=== PATIENT | female | born 1990 | race Two or more races ===

== ENCOUNTER 2017-06-22 16:28 | Emergency (ER) | payer OTHER ==
[2017-06-22 16:38] VITALS: BP 103/57; PULSE 68; TEMP 98; BMI 21.2
--- NOTE | 2017-06-22 19:15 | PDOC ---
History of Present Illness - History of Present Illness Initial Comments: 06/22/17 19:17 The patient is a 26 year old female with a past medical history of migraines, epilepsy, who presents to the emergency department with a complaint of head ache for three days. The pain started off mild and has since progressively worsened. She states that she has had nausea and vomiting over the past two days with decreased appetite. She reports not being able to sleep over the past three days because of the headaches. Patient states she hasn't had a migraine in 5-6 years ago. Patient is currently not on any medications for her migraines . She has been compliant with her Kepra prescriptions. She states her head ache triggers include stress, dehydration and her period. She reports a fever last night and diaphoresis. She reports a sore throat. She reports sensitivity to noise and sounds. Denies any sick contacts. Patients neurologist are in [place] and plans on switching her care into [place]. Denies being . Denies alcohol or drug use Patient reports allergies to [place]. <Daryl Gutierrez - Last Filed: 06/22/17 19:33> - General History Source: Patient, Parent(s) Exam Limitations: No Limitations - History of Present Illness Initial Comments: 06/22/17 22:18 <Yumiko Gordon - Last Filed: 06/22/17 22:19> - General Chief Complaint: Headache Stated Complaint: HEADACHE Time Seen by Provider: 06/22/17 19:14 Past History <Daryl Gutierrez - Last Filed: 06/22/17 19:33> - Past Medical History Asthma: No Cancer: No Cardiac Disorders: No Diabetes: No HTN: No Seizures: Yes Thyroid Disease: No - Psycho/Social/Smoking Cessation Hx Anxiety: No Suicidal Ideation: No Smoking Status: Yes Smoking History: Current every day smoker Have you smoked in the past 12 months: No Number of Cigarettes Smoked Daily: 3 Information on smoking cessation initiated: No Hx Alcohol Use: No Drug/Substance Use Hx: Yes (marijuana) Hx Substance Use Treatment: No <Yumiko Gordon - Last Filed: 06/22/17 22:19> - Past Medical History Allergies/Adverse Reactions: Allergies Allergy/AdvReac Type Severity Reaction Status Date / Time No Known Allergies Allergy Verified 06/22/17 16:38 Home Medications: Ambulatory Orders Levetiracetam [Keppra -] 500 mg PO BID 06/22/17 Review of Systems - Review of Systems Able to Perform ROS?: Yes Constitutional: Yes: Symptoms Reported, See HPI, Diaphoresis, Fever, Loss of Appetite HEENTM: Yes: Throat Pain Respiratory: No: Symptoms reported Cardiac (ROS): No: Symptoms Reported ABD/GI: Yes: Nausea, Vomiting : No: Symptoms Reported Musculoskeletal: No: Symptoms Reported Integumentary: No: Symptoms Reported Neurological: Yes: Headache, Other (sensitivity to light) All Other Systems: Reviewed and Negative <Daryl Gutierrez - Last Filed: 06/22/17 19:33> *Physical Exam - Vital Signs Last Vital Signs Temp Pulse Resp BP Pulse Ox 98 F 68 18 103/57 100 06/22/17 16:36 06/22/17 16:36 06/22/17 16:36 06/22/17 16:36 06/22/17 16:36 - Physical Exam General Appearance: Yes: Nourished, Appropriately Dressed, Mild Distress, Other (soft spoken , mildly photophobic, ill appearing ) HEENT: positive: Normal ENT Inspection, Normal Voice Neck: positive: Supple. negative: Tender, Lymphadenopathy (R), Lymphadenopathy (L) Respiratory/Chest: positive: Lungs Clear Cardiovascular: positive: Regular Rhythm, Regular Rate Gastrointestinal/Abdominal: positive: Soft. negative: Tender Musculoskeletal: positive: Normal Inspection Extremity: positive: Normal Inspection Integumentary: positive: Normal Color, Dry, Warm Neurologic: positive: Fully Oriented, Alert, Other (able to recount events ) <Daryl Gutierrez - Last Filed: 06/22/17 19:33> - Vital Signs Last Vital Signs Temp Pulse Resp BP Pulse Ox 98 F 68 18 103/57 100 06/22/17 16:36 06/22/17 16:36 06/22/17 16:36 06/22/17 16:36 06/22/17 16:36 <Yumiko Gordon - Last Filed: 06/22/17 22:19> Medical Decision Making - Medical Decision Making 06/22/17 19:55 will treat with IV hydration normal saline, IV Tylenol as patient has Toradol and tramadol ALLERGIES, and Reglan and will reevaluate The scribe's documentation has been prepared under my direction and personally reviewed by me in its entirety. I confirm that the note above accurately reflects all work, treatment, procedures, and medical decision making performed by me. 06/22/17 19:56 06/22/17 21:30 Patient much improved after second liter of IV fluid, medications and rest. States is ready for discharge. Has neurologist but will follow up with her PMD. And understands need to return for any changes in symptoms or worsened 06/22/17 22:19 <Yumiko Gordon - Last Filed: 06/22/17 22:19> *DC/Admit/Observation/Transfer - Attestations Scribe Attestion: 06/22/17 19:31 Documentation prepared by Daryl Gutierrez, acting as medical case worker for Yumiko Gordon MD <Daryl Gutierrez - Last Filed: 06/22/17 19:33> - Discharge Dispostion Admit: No <Yumiko Gordon - Last Filed: 06/22/17 22:19> Diagnosis at time of Disposition: Head ache Qualifiers: Headache type: unspecified Headache chronicity pattern: unspecified pattern Intractability: not intractable Qualified Code(s): R51 - Headache - Discharge Dispostion Disposition: HOME Condition at time of disposition: Stable - Referrals Referrals: Prieto Kline MD [Staff Physician] - - Patient Instructions Printed Discharge Instructions: DI for Migraine Additional Instructions: Rest, avoid heavy lifting or strenuous activity until pain resolves stay well- hydrated, Tylenol for pain relief Up with PMD/neurologist for ongoing treatment and evaluation for headache. - Post Discharge Activity Work/School Note: Back to Work
[2017-06-22] MEDS ORDERED: SODIUM CHLORIDE 0.9% 1000 ML INFUS.BAG IV ONE (19:31)
[2017-06-22] MEDS ORDERED: ACETAMINOPHEN 1000 MG/100 ML VIAL (NON FORMULARY) IVPB ONE (19:33)
[2017-06-22] MEDS ORDERED: METOCLOPRAMIDE HCL INJECTION 10 MG/2 ML VIAL IVPUSH ONE (19:34)
[2017-06-22] MEDS ORDERED: METOCLOPRAMIDE HCL INJECTION 10 MG/2 ML VIAL ONE (19:38)
[2017-06-22] MEDS ORDERED: ACETAMINOPHEN INJECTION 100 ML IVPB ONE (19:38)
[2017-06-22 20:29] LABS: URINE APPEARANCE SLCLOUDY; URINE BILIRUBIN NEGATIVE (NEGATIVE); URINE BLOOD NEGATIVE (NEGATIVE); URINE COLOR YELLOW; URINE GLUCOSE (UA) NEGATIVE (NEGATIVE); URINE KETONE NEGATIVE (NEGATIVE); URINE LEUK ESTERASE NEGATIVE (NEGATIVE); URINE NITRITE NEGATIVE (NEGATIVE); URINE PROTEIN NEGATIVE (NEGATIVE); URINE UROBILINOGEN NEGATIVE mg/dL (0.2-1.0)
== END 2017-06-22 21:57 | disposition home or self-care (01) ==
LOC: JERFT 16:28
PROC: 3E033NZ Introduction of Analgesics, Hypnotics, Sedatives into Peripheral Vein, Percutaneous Approach (ICD-10-PCS; principal; 2017-06-22)
PROC: 3E033GC Introduction of Other Therapeutic Substance into Peripheral Vein, Percutaneous Approach (ICD-10-PCS; 2017-06-22)
DX: R51 Headache (principal); Z86.69 Personal history of other diseases of the nervous system and sense organs
CPT/HCPCS: 81003; 84703; 96374; 96375; 99281-25

== ENCOUNTER 2017-11-10 09:26 | Emergency (ER) | payer OTHER ==
[2017-11-10] MEDS ORDERED: morphine CARPU-JECT 4 MG/1 ML DISP.SYRIN IVPUSH ONE (09:50)
[2017-11-10] MEDS ORDERED: SODIUM CHLORIDE 1,000 ML IV STA (10:02)
--- NOTE | 2017-11-10 10:02 | PDOC ---
History of Present Illness - General Stated Complaint: ABD PAIN Time Seen by Provider: 11/10/17 09:37 - History of Present Illness Initial Comments: 11/10/17 09:55 27F with pmh of migranes and epilepsy presents with intensely sharp pain in the midline lower abdomen and lower back pain bilaterally since waking up this morning at 7pm. She tried placing a heat pack but it is getting worse. No vaginal bleeding. States that she took a test 2 month ago that was positive. Last day of menstruation was July 20 which would make her 16 weeks going by her last day of menses. No OBGYN follow up or ultrasounds done. Past History - Past Medical History Allergies/Adverse Reactions: Allergies Allergy/AdvReac Type Severity Reaction Status Date / Time ibuprofen [From Motrin] Allergy Verified 11/10/17 10:31 ketorolac [From Toradol] Allergy Verified 11/10/17 10:31 tramadol Allergy Verified 11/10/17 10:31 Home Medications: Ambulatory Orders Levetiracetam [Keppra -] 500 mg PO BID 06/22/17 Asthma: No Cancer: No Cardiac Disorders: No Diabetes: No HTN: No Seizures: Yes Thyroid Disease: No - Suicide/Smoking/Psychosocial Hx Smoking Status: Yes Smoking History: Current every day smoker Have you smoked in the past 12 months: No Number of Cigarettes Smoked Daily: 3 Hx Alcohol Use: No Drug/Substance Use Hx: Yes (marijuana) Hx Substance Use Treatment: No Review of Systems - Review of Systems Able to Perform ROS?: Yes Is the patient limited [place] proficient: No Constitutional: No: Symptoms Reported HEENTM: No: Symptoms Reported Respiratory: No: Symptoms reported Cardiac (ROS): No: Symptoms Reported ABD/GI: Yes: See HPI : No: Symptoms Reported Musculoskeletal: No: Symptoms Reported Integumentary: No: Symptoms Reported Neurological: No: Symptoms reported All Other Systems: Reviewed and Negative *Physical Exam - Physical Exam General Appearance: Yes: Nourished, Appropriately Dressed, Severe Distress, Thin HEENT: positive: EOMI, SATHYA, Normal ENT Inspection Respiratory/Chest: positive: Lungs Clear, Normal Breath Sounds. negative: Chest Tender, Respiratory Distress Cardiovascular: positive: Regular Rhythm, S1, S2, Tachycardia Female Pelvic Exam: positive: normal external exam. negative: vaginal bleeding Gastrointestinal/Abdominal: positive: Normal Bowel Sounds, Tender (exquisitely tender in all quadrant), Soft, Rebound. negative: Distended Extremity: positive: Normal Capillary Refill Integumentary: positive: Dry, Warm, Pale. negative: Diaphoresis Neurologic: positive: Fully Oriented, Alert, Normal Mood/Affect ED Treatment Course - LABORATORY CBC & Chemistry Diagram: 11/10/17 10:23 11/10/17 10:23 - RADIOLOGY Radiology Studies Ordered: Category Date Time Status TRANSVAGINAL US PREG [US] Stat Ultrasound 11/10/17 09:43 Ordered Medical Decision Making - Medical Decision Making 11/10/17 11:11 27 [id number] acute lower abdominal pain Patient hypotensive in the 80's, 2x NS bolus and pain control Emergency bedside Ultrasound performed. Empty uterus, no free fluid seen at first impression. Will do CT 11/10/17 14:06 11/10/17 14:05 CT abdomen with contrast: Left ovarian cyst and free pelvic fluid Pain control and D/C 11/10/17 14:25 Given zofran and percocet. *DC/Admit/Observation/Transfer Diagnosis at time of Disposition: Hemorrhagic cyst of left ovary - Discharge Dispostion Disposition: HOME Admit: No - Referrals Referrals: Marva Estes MD [Primary Care Provider] - Darinel Hahn MD [Staff Physician] - - Patient Instructions Printed Discharge Instructions: Ovarian Cyst Additional Instructions: Follow up with your OBGYN within 3-4 days Come back to the Ed for any new, worsening or concerning symptom. - Post Discharge Activity
[2017-11-10] MEDS ORDERED: ONDANSETRON 4 MG/2 ML VIAL IVPUSH ONE (10:27)
[2017-11-10 10:30] VITALS: BMI 23.9
[2017-11-10] MEDS ORDERED: ONDANSETRON 4 MG/2 ML VIAL ONE ×2 (10:30→14:18)
[2017-11-10 10:45] LABS: BASO % 0.4 % (0-2.0); EOS % 0.4 % (0-4.5); HEMATOCRIT 44.1 % (32.4-45.2); HEMOGLOBIN 14.5 GM/dL (10.7-15.3); LYMPH % 37.8 % (8-40); MCH 28.8 pg (25.7-33.7); MCHC 32.9 g/dl (32.0-36.0); MEAN CELL VOLUME 87.4 fl (80-96); MONO % 9.4 % (3.8-10.2); PLATELET COUNT 278 K/MM3 (134-434); RBC 5.05 M/mm3 (3.60-5.2); RDW 13.9 % (11.6-15.6); WHITE BLOOD COUNT 7.5 K/mm3 (4.0-10.0)
[2017-11-10 10:54] LABS: ALBUMIN 4.2 g/dl (3.4-5.0); ANION GAP 9 (8-16); BLOOD UREA NITROGEN 13 mg/dL (7-18); CALCIUM 8.9 mg/dL (8.5-10.1); CHLORIDE 105 mmol/L (98-107); CO2 23 mmol/L (21-32); CREATININE 0.9 mg/dL (0.55-1.02); GLUCOSE,RANDOM 85 mg/dL (74-106); POTASSIUM 3.8 mmol/L (3.5-5.1); SGOT/AST 17 U/L (15-37); SGPT/ALT 13 U/L (12-78); SODIUM 137 mmol/L (136-145); TOT PROT 8.3 g/dl (6.4-8.2)
[2017-11-10 10:56] LABS: ALK PHOS 56 U/L (45-117)
--- NOTE | 2017-11-10 11:02 | PDOC ---
Attending Attestation - Resident Resident Name: Karlos Logan - ED Attending Attestation I have performed the following: I have examined & evaluated the patient, The case was reviewed & discussed with the resident, I agree w/resident's findings & plan, Exceptions are as noted - HPI HPI: 11/10/17 10:57 27-year-old female with history of polycystic ovaries and irregular menses presents with acute onset of pelvic pain radiating to her back that awoke her from sleep at 7 AM. Associated with nausea, intolerable 10 out of 10 pain. No bleeding or discharge. Patient states she had a positive home test at the end of August. - Physicial Exam PE: 11/10/17 10:57 Initially hypotensive to 80 systolic and tachycardic to 125, O2 sat normal. In significant distress secondary to pain, abdomen diffusely tender particularly in the lower suprapubic region Bedside ultrasound did not reveal usable images Stat official ultrasound showed no IUP or obvious ectopic or free fluid in the abdomen, bilateral cystic ovaries with otherwise normal perfusion on our preliminary review with the research technologist - Critical Care Time Total Critical Care Time: 110 Critical Care Statement: The care of this patient involved high complexity decision making to prevent further life threatening deterioration of the patient 's condition and/or to evaluate & treat vital organ system(s) failure or risk of failure. - Medical Decision Making 11/10/17 10:58 Patient seen and evaluated with the resident. I agree with the overall evaluation, assessment, and management with the following summary of visit: 27-year-old female presents with acute onset of pelvic pain this morning, peritoneal findings on examination and hemodynamically unstable. Unclear status, if question first trimester versus second trimester pathology, if not question GI/obstruction versus torsion versus cyst rupture versus urinary etiology. Patient seen immediately upon arrival, moved to resuscitation room 10, IV access obtained 2 and IV fluid resuscitation initiated Pain control with fentanyl Bedside imaging as noted CT imaging pending [facility] consulted Continue workup and reassess 11/10/17 14:58 pain controlled with meds. workup revealed L hemorrhagic ovarian cyst, no torsion. otherwise no acute pathology on labs/ua/sono/ctap. HD improved, BP 100, pain resolved, family at bedside, agrees with d/c plan and understands return criteria. Heart Score/ECG Review #1 ECG reviewed & interpreted by me at: 11:40 General ECG Interpretation: Sinus Rhythm, Normal Rate (69), Normal Intervals ( qtc 450), No acute ischemic changes
[2017-11-10 11:51] LABS: INR 0.97 (0.82-1.09)
[2017-11-10 11:54] LABS: ACTIVATED PTT 33.5 SECONDS (26.9-34.4)
[2017-11-10] MEDS ORDERED: SODIUM CHLORIDE 1,000 ML IV ONE (12:01)
[2017-11-10 13:01] VITALS: BP 100/62; PULSE 82; TEMP 98
[2017-11-10 13:10] LABS: URINE APPEARANCE CLEAR; URINE BILIRUBIN NEGATIVE (NEGATIVE); URINE BLOOD NEGATIVE (NEGATIVE); URINE COLOR STRAW; URINE GLUCOSE (UA) NEGATIVE (NEGATIVE); URINE KETONE 1+ (NEGATIVE); URINE LEUK ESTERASE NEGATIVE (NEGATIVE); URINE NITRITE NEGATIVE (NEGATIVE); URINE PROTEIN NEGATIVE (NEGATIVE); URINE UROBILINOGEN NEGATIVE mg/dL (0.2-1.0)
[2017-11-10] MEDS ORDERED: ONDANSETRON 4 MG/2 ML VIAL IVPB ONE (14:11)
--- NOTE | 2017-11-10 17:02 | EKG ---
Test Reason : Blood Pressure : / mmHG Vent. Rate : 069 BPM Atrial Rate : 069 BPM P-R Int : 142 ms QRS Dur : 068 ms QT Int : 420 ms P-R-T Axes : 060 075 071 degrees QTc Int : 450 ms NORMAL SINUS RHYTHM POSSIBLE LEFT ATRIAL ENLARGEMENT SEPTAL INFARCT , AGE UNDETERMINED ABNORMAL ECG WHEN COMPARED WITH ECG OF 14-JUL-2013 19:54, NO SIGNIFICANT CHANGE WAS FOUND Confirmed by MD Christian, Nico ([id number]) on 11/10/2017 5:02:22 PM Referred By: Confirmed By:Nico Gonzales MD
== END 2017-11-10 15:14 | disposition home or self-care (01) ==
LOC: JER 09:26
PROC: 3E0337Z Introduction of Electrolytic and Water Balance Substance into Peripheral Vein, Percutaneous Approach (ICD-10-PCS; principal; 2017-11-10)
PROC: 3E033NZ Introduction of Analgesics, Hypnotics, Sedatives into Peripheral Vein, Percutaneous Approach (ICD-10-PCS; 2017-11-10)
PROC: 3E033GC Introduction of Other Therapeutic Substance into Peripheral Vein, Percutaneous Approach (ICD-10-PCS; 2017-11-10)
DX: N83.202 Unspecified ovarian cyst, left side (principal); G40.909 Epilepsy, unspecified, not intractable, without status epilepticus; G43.909 Migraine, unspecified, not intractable, without status migrainosus; F17.210 Nicotine dependence, cigarettes, uncomplicated
CPT/HCPCS: 36415; 74177-TC; 76817-TC; 80053; 81003; 83605; 84702; 85025; 85610; 85730; 86850; 86900; 86901; 93005; 93010; 96361; 96374; 96375; 96376; 99284-25

== ENCOUNTER 2018-03-01 22:31 | Emergency (ER) | payer OTHER ==
--- NOTE | 2018-03-01 22:34 | PDOC ---
History of Present Illness - General History Source: Patient, EMS Exam Limitations: No Limitations - History of Present Illness Initial Comments: 03/02/18 00:24 The patient is a 27 year old female with past medical history of seizures (4-5 years) present to the emergency department via EMS after a short lived episode of tonic-clonic seizure attack. The seizure was witnessed by sister who states it lasted for 2-3 minutes. Denies biting her tongue or urinary incontinence. The patient reports recent discharge from a detox facility for opioid abuse ( pills). As per the EMS, the patient was taken off keppra about 2 weeks ago. The patient states she has a headache and denies taking any medication. Denies any chest pain, SOB, fever, chills, nausea or vomiting. Social history: smokes marijuana. Past history of opioid abuse. Allergies: ibuprofen, ketorolac, and tramadol. <Elisabet Moreira - Last Filed: 03/02/18 00:26> <Alee Mahan - Last Filed: 03/02/18 00:41> - General Stated Complaint: SEIZURE Time Seen by Provider: 03/01/18 22:33 Past History <Elisabet Moreira - Last Filed: 03/02/18 00:26> - Past Medical History Asthma: No Cancer: No Cardiac Disorders: No COPD: No Diabetes: No HTN: No Seizures: Yes Thyroid Disease: No - Reproductive History (#): 3 Para: 1 Cervical CA: No Dysfunctional Uterine Bleeding: No Ectopic : No Endometrial CA: No Polycystic Ovaries: No Therapeutic (s) & number: Yes (1) Tubal Ligation: No Spontaneous : 0 - Suicide/Smoking/Psychosocial Hx Smoking Status: Yes Smoking History: Current every day smoker Have you smoked in the past 12 months: No Number of Cigarettes Smoked Daily: 3 Hx Alcohol Use: No Drug/Substance Use Hx: Yes (marijuana) Substance Use Type: Marijuana Hx Substance Use Treatment: No <Alee Mahan - Last Filed: 03/02/18 00:41> - Past Medical History Allergies/Adverse Reactions: Allergies Allergy/AdvReac Type Severity Reaction Status Date / Time ibuprofen [From Motrin] Allergy Verified 03/01/18 23:08 ketorolac [From Toradol] Allergy Verified 03/01/18 23:08 tramadol Allergy Verified 03/01/18 23:08 Home Medications: Ambulatory Orders levETIRAcetam [Keppra -] 1,000 mg PO BID 06/22/17 levETIRAcetam [Keppra -] 1,000 mg PO BID #60 tablet 03/02/18 Review of Systems - Review of Systems Able to Perform ROS?: Yes Comments:: 03/02/18 00:24 CONSTITUTIONAL: Absent: fever, no chills, no fatigue EYES: Absent: visual changes ENT: Absent: ear pain, no sore throat CARDIOVASCULAR: Absent: chest pain, no palpitations RESPIRATORY: Absent: cough, no SOB GI: Absent: abdominal pain, no nausea, no vomiting, no constipation, no diarrhea GENITOURINARY: Absent: dysuria, no frequency, no hematuria MUSKULOSKELETAL: Absent: back pain, no arthralgia, no myalgia SKIN: Absent: rash NEURO: (+) an episode of tonic-clonic seizure. (+) headache. <Elisabet Moreira - Last Filed: 03/02/18 00:26> *Physical Exam - Vital Signs Last Vital Signs Temp Pulse Resp BP Pulse Ox 98.4 F 75 16 123/86 100 03/01/18 23:01 03/01/18 23:01 03/01/18 23:01 03/01/18 23:01 03/01/18 23:01 - Physical Exam Comments: 03/02/18 00:23 GENERAL: Alert, oriented X3, Well-appearing, well-nourished. No apparent distress. HEENT: no tongue biting. Normocephalic, atraumatic. PERRL, EOM intact. CARDIOVASCULAR: Normal S1, S2. Regular rate and rhythm no murmurs. . PULMONARY: Clear Clear to auscultation bilaterally. ABDOMEN: (+) benign abd cramps Soft, non-distended, non-tender. EXTREMITIES: Normal ROM in all four extremities. No gross deformities. : No urinary incontinence. SKIN: Warm, dry. No rash NEUROLOGICAL: No gross focal deficit. No focal neurological deficits. <Elisabet Moreira - Last Filed: 03/02/18 00:26> ED Treatment Course - LABORATORY CBC & Chemistry Diagram: 03/01/18 23:22 03/01/18 23:22 - ADDITIONAL ORDERS Additional order review: Laboratory Results 03/01/18 03/01/18 23:22 23:22 Sodium 141 Potassium 3.8 Chloride 106 Carbon Dioxide 24 Anion Gap 11 BUN 11 Creatinine 0.7 Creat Clearance w eGFR > 60 Random Glucose 102 Calcium 8.7 Total Bilirubin 0.2 D AST 20 ALT 24 Alkaline Phosphatase 57 Total Protein 7.2 Albumin 3.8 Serum , Qual Negative 03/01/18 23:22 RBC 4.16 MCV 87.5 MCHC 34.7 RDW 14.4 MPV 8.1 Neutrophils % 59.7 Lymphocytes % 29.9 D Monocytes % 9.0 Eosinophils % 1.0 D Basophils % 0.4 - Medications Given in the ED: ED Medications Discontinued Medications Generic Name Dose Route Start Last Admin Trade Name Freq PRN Reason Stop Dose Admin Levetiracetam 1,000 mg 03/01/18 22:36 03/01/18 23:11 Keppra Injection - IVPB 03/01/18 22:37 1,000 mg ONCE ONE Administration <Elisabet Moreira - Last Filed: 03/02/18 00:26> - LABORATORY CBC & Chemistry Diagram: 03/01/18 23:22 03/01/18 23:22 <Alee Mahan - Last Filed: 03/02/18 00:41> Medical Decision Making - Medical Decision Making 03/02/18 00:28 27-year-old female with a history of seizures, had a witnessed tonic-clonic seizure today. She takes Recently Had a Change in Her keppra Dosage. There Is No Head Trauma. She had no tongue trauma and no urinary incontinence Patient Was Alert upon Arrival, Moving All Extremities. Patient Was Loaded with Keppra. Keppra Level Was Sent. Patient Will Follow-Up with Neurology 03/02/18 00:41 <Alee Mahan - Last Filed: 03/02/18 00:41> *DC/Admit/Observation/Transfer <Elisabet Moreira - Last Filed: 03/02/18 00:26> <Alee Mahan - Last Filed: 03/02/18 00:41> Diagnosis at time of Disposition: Seizure - Discharge Dispostion Disposition: HOME Condition at time of disposition: Stable - Prescriptions Prescriptions: levETIRAcetam [Keppra -] 1,000 mg PO BID #60 tablet - Patient Instructions Printed Discharge Instructions: DI for Seizure Disorder -- Adult Additional Instructions: please followup with neurology please berry picker your prescription at your pharmacy
[2018-03-01] MEDS ORDERED: levETIRAcetam 500 MG/5 ML INJECTION VIAL IVPB ONE ×2 (22:36→22:56)
[2018-03-01 23:06] VITALS: BP 123/86; PULSE 75; TEMP 98.4; BMI 23.0
[2018-03-01 23:33] LABS: BASO % 0.4 % (0-2.0); HEMATOCRIT 36.4 % (32.4-45.2); HEMOGLOBIN 12.6 GM/dL (10.7-15.3); LYMPH % 29.9 % (8-40); MCH 30.4 pg (25.7-33.7); MCHC 34.7 g/dl (32.0-36.0); MEAN CELL VOLUME 87.5 fl (80-96); MEAN PLT VOLUME 8.1 fl (7.5-11.1); NEUT % 59.7 % (42.8-82.8); PLATELET COUNT 263 K/MM3 (134-434); RBC 4.16 M/mm3 (3.60-5.2); RDW 14.4 % (11.6-15.6); WHITE BLOOD COUNT 7.8 K/mm3 (4.0-10.0)
[2018-03-01 23:55] LABS: ALBUMIN 3.8 g/dl (3.4-5.0); ALK PHOS 57 U/L (45-117); ANION GAP 11 (8-16); BILIRUBIN,TOTAL 0.2 mg/dL (0.2-1.0); BLOOD UREA NITROGEN 11 mg/dL (7-18); CALCIUM 8.7 mg/dL (8.5-10.1); CHLORIDE 106 mmol/L (98-107); CO2 24 mmol/L (21-32); CREATININE 0.7 mg/dL (0.55-1.02); GLUCOSE,RANDOM 102 mg/dL (74-106); POTASSIUM 3.8 mmol/L (3.5-5.1); SGOT/AST 20 U/L (15-37); SGPT/ALT 24 U/L (12-78); SODIUM 141 mmol/L (136-145); TOT PROT 7.2 g/dl (6.4-8.2)
--- NOTE | 2018-03-02 10:01 | EKG ---
Test Reason : Blood Pressure : / mmHG Vent. Rate : 079 BPM Atrial Rate : 079 BPM P-R Int : 162 ms QRS Dur : 076 ms QT Int : 370 ms P-R-T Axes : 043 045 029 degrees QTc Int : 424 ms POOR DATA QUALITY, INTERPRETATION MAY BE ADVERSELY AFFECTED NORMAL SINUS RHYTHM NORMAL ECG WHEN COMPARED WITH ECG OF 10-NOV-2017 11:40, NO SIGNIFICANT CHANGE WAS FOUND Confirmed by MD Elif, Bhavin ([id number]) on 03/02/2018 10:00:37 AM Referred By: Confirmed By:Bhavin Asencio MD
== END 2018-03-02 01:02 | disposition home or self-care (01) ==
LOC: JER 22:31
PROC: 3E033GC Introduction of Other Therapeutic Substance into Peripheral Vein, Percutaneous Approach (ICD-10-PCS; principal; 2018-03-01)
DX: G40.89 Other seizures (principal); Z86.69 Personal history of other diseases of the nervous system and sense organs
CPT/HCPCS: 36415; 80053; 84703; 85025; 93005; 93010; 96374; 99282-25

== ENCOUNTER 2018-04-10 10:30 | Inpatient (IN) | payer OTHER ==
[2018-04-10] MEDS ORDERED: SODIUM CHLORIDE 1,000 ML IV STA (11:13)
[2018-04-10] MEDS ORDERED: ACETAMINOPHEN 1000 MG/100 ML VIAL (NON FORMULARY) IVPB ONE (11:13)
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
[2018-04-10] MEDS ORDERED: ACETAMINOPHEN INJECTION 100 ML IVPB ONE (11:35)
[2018-04-10] MEDS ORDERED: LORazepam 2 MG/ML SDV VIAL ONE ×2 (11:36→13:05)
[2018-04-10 11:52] LABS: BASO % 0.5 % (0-2.0); EOS % 0.4 % (0-4.5); HEMATOCRIT 38.3 % (32.4-45.2); LYMPH % 28.9 % (8-40); MCH 29.9 pg (25.7-33.7); MCHC 33.9 g/dl (32.0-36.0); MEAN CELL VOLUME 88.2 fl (80-96); MEAN PLT VOLUME 8.9 fl (7.5-11.1); MONO % 9.9 % (3.8-10.2); NEUT % 60.3 % (42.8-82.8); PLATELET COUNT 234 K/MM3 (134-434); RBC 4.35 M/mm3 (3.60-5.2); RDW 14.1 % (11.6-15.6); WHITE BLOOD COUNT 6.3 K/mm3 (4.0-10.0)
[2018-04-10 12:17] LABS: ALBUMIN 3.7 g/dl (3.4-5.0); ALK PHOS 54 U/L (45-117); ANION GAP 7 (8-16); BILIRUBIN,TOTAL 0.5 mg/dL (0.2-1.0); BLOOD UREA NITROGEN 12 mg/dL (7-18); CALCIUM 8.9 mg/dL (8.5-10.1); CHLORIDE 107 mmol/L (98-107); CO2 25 mmol/L (21-32); CREATININE 0.8 mg/dL (0.55-1.02); GLUCOSE,RANDOM 87 mg/dL (74-106); POTASSIUM 3.8 mmol/L (3.5-5.1); SGOT/AST 14 U/L (15-37); SGPT/ALT 13 U/L (12-78); SODIUM 139 mmol/L (136-145); TOT PROT 7.2 g/dl (6.4-8.2)
[2018-04-10 12:26] VITALS: TEMP 98.2; BMI 18.4
[2018-04-10] MEDS ORDERED: levETIRAcetam 500 MG/5 ML INJECTION VIAL IVPB ONE ×3 (13:10→13:43)
[2018-04-10] MEDS ORDERED: morphine CARPU-JECT 4 MG/1 ML DISP.SYRIN IVPUSH ONE (13:29)
[2018-04-10] MEDS ORDERED: morphine SULFATE 4 MG/ML VIAL ONE (13:43)
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
[2018-04-10 15:59] LABS: PHOSPHOROUS 3.3 mg/dL (2.5-4.9)
[2018-04-10] MEDS ORDERED: ACETAMINOPHEN 500 MG TABLET (FP) PO PRN ×2 (17:33→17:42)
[2018-04-10] MEDS ORDERED: traMADol HCL 50 MG TABLET PO PRN (17:34)
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
[2018-04-10 18:13] VITALS: BP 100/64; PULSE 64
[2018-04-10] MEDS ORDERED: levETIRAcetam 500 MG TABLET (FP) PO SCH ×2 (22:00)
[2018-04-11] MEDS ORDERED: levETIRAcetam 500 MG TABLET (FP) PO SCH (07:00)
--- NOTE | 2018-04-11 08:56 | EKG ---
Test Reason : Blood Pressure : / mmHG Vent. Rate : 064 BPM Atrial Rate : 064 BPM P-R Int : 162 ms QRS Dur : 078 ms QT Int : 394 ms P-R-T Axes : 055 065 048 degrees QTc Int : 406 ms NORMAL SINUS RHYTHM WITH SINUS ARRHYTHMIA SEPTAL INFARCT , AGE UNDETERMINED ABNORMAL ECG WHEN COMPARED WITH ECG OF 01-MAR-2018 23:06, SEPTAL INFARCT IS NOW PRESENT Confirmed by CELINE GATICA, CHRISTIAN ([id number]) on 04/11/2018 8:56:01 AM Referred By: Confirmed By:CHRISTIAN BERGER MD
== END 2018-04-10 19:30 | disposition left against medical advice (07) | DRG 53 ==
LOC: JER 10:30 → JERBED 17:02 → J4W 19:03
PROVIDERS: ADMIT Internal Medicine; ATTEND Internal Medicine
DX: G40.909 Epilepsy, unspecified, not intractable, without status epilepticus (principal); F12.20 Cannabis dependence, uncomplicated
CPT/HCPCS: 36415; 70450-TC; 71045-TC-FY; 71101-TC-RT-FY; 72050-TC-FY; 72070-TC-FY; 80053; 83735; 84100; 84703; 85025; 93005; 93010; 99284-25; J0131; J7030

== ENCOUNTER 2018-05-19 13:51 | Observation (INO) | payer OTHER ==
[2018-05-19 14:03] VITALS: BMI 23.0
[2018-05-19] MEDS ORDERED: MIDAZOLAM HCL 5 MG/1 ML Single Dose Vial IVPUSH ONE (14:09)
[2018-05-19] MEDS ORDERED: levETIRAcetam 500 MG/5 ML INJECTION VIAL IVPB ONE ×2 (14:13→14:14)
--- NOTE | 2018-05-19 14:14 | PDOC ---
History of Present Illness - General Chief Complaint: Seizure Stated Complaint: Seizure Time Seen by Provider: 05/19/18 14:08 - History of Present Illness Initial Comments: 05/19/18 14:14 27 F, with PMHx of epilepsy (4-5 years, on Keppra BID 1000 mg ), who presents to the ED with her boyfriend fro 5 episodes of seizures since this morning. Usually feels like her ear are popping before seizures start, called her boyfriend who come over and witnessed the first seizure. One episode of vomiting in the ED. Usually has series of seizures every month or so. According to bf she was laying down, immobile during the seizure. Had en episode of vomiting 2 days ago. Smokes cigarettes. Past History - Past Medical History Allergies/Adverse Reactions: Allergies Allergy/AdvReac Type Severity Reaction Status Date / Time NSAIDS (Non-Steroidal Allergy Severe Swelling Verified 05/19/18 14:05 Anti-Inflamma ibuprofen [From Motrin] Allergy Verified 05/19/18 14:05 ketorolac [From Toradol] Allergy Verified 05/19/18 14:05 tramadol Allergy Verified 05/19/18 14:05 Home Medications: Ambulatory Orders levETIRAcetam [Keppra -] 1,000 mg PO DAILY 05/19/18 Asthma: No Cancer: No Cardiac Disorders: No COPD: No Diabetes: No HTN: No Seizures: Yes Thyroid Disease: No - Reproductive History (#): 3 Para: 1 Cervical CA: No Dysfunctional Uterine Bleeding: No Ectopic : No Endometrial CA: No Polycystic Ovaries: No Therapeutic (s) & number: Yes (1) Tubal Ligation: No Spontaneous : 0 - Immunization History Td Vaccination: Yes TDAP Vaccination: Yes Immunization Up to Date: Yes - Suicide/Smoking/Psychosocial Hx Smoking Status: Yes Smoking History: Current every day smoker Have you smoked in the past 12 months: Yes Number of Cigarettes Smoked Daily: 5 Information on smoking cessation initiated: No 'Breaking Loose' booklet given: 01/21/14 Hx Alcohol Use: No Drug/Substance Use Hx: Yes Substance Use Type: None, Marijuana Hx Substance Use Treatment: No Review of Systems - Review of Systems Able to Perform ROS?: No (postictal) *Physical Exam - Vital Signs Last Vital Signs Temp Pulse Resp BP Pulse Ox 98.8 F 54 L 20 117/90 100 05/19/18 13:55 05/19/18 13:55 05/19/18 13:55 05/19/18 13:55 05/19/18 13:55 - Physical Exam General Appearance: Yes: Nourished, Appropriately Dressed. No: Apparent Distress HEENT: positive: EOMI, SATHYA, Normal ENT Inspection Respiratory/Chest: positive: Lungs Clear, Normal Breath Sounds. negative: Chest Tender, Respiratory Distress Cardiovascular: positive: Regular Rhythm, Bradycardia Gastrointestinal/Abdominal: positive: Normal Bowel Sounds, Flat, Soft. negative : Tender Extremity: positive: Normal Capillary Refill, Normal Inspection, Normal Range of Motion Neurologic: positive: Other (post ictal, sleepy but arousable). negative: Fully Oriented ED Treatment Course - LABORATORY CBC & Chemistry Diagram: 05/19/18 14:26 05/19/18 14:26 Medical Decision Making - Medical Decision Making 05/19/18 16:02 6 total episodes of seizure with vomiting. Given 2mg Ativan x2 Keppra - fluids - Ct head - Neuro Consult 05/19/18 16:14 Will Admit *DC/Admit/Observation/Transfer Diagnosis at time of Disposition: Seizure disorder - Discharge Dispostion Decision to Admit order: Yes - Referrals - Patient Instructions - Post Discharge Activity
[2018-05-19] MEDS ORDERED: LORazepam 2 MG/ML SDV VIAL ONE ×2 (14:15→14:48)
[2018-05-19] MEDS ORDERED: METOCLOPRAMIDE HCL INJECTION 10 MG/2 ML VIAL IVPUSH ONE (14:34)
[2018-05-19] MEDS ORDERED: METOCLOPRAMIDE HCL INJECTION 10 MG/2 ML VIAL ONE (14:36)
[2018-05-19 15:00] LABS: BASO % 0.4 % (0-2.0); EOS % 0.6 % (0-4.5); HEMATOCRIT 39.8 % (32.4-45.2); HEMOGLOBIN 13.3 GM/dL (10.7-15.3); LYMPH % 36.5 % (8-40); MCH 29.6 pg (25.7-33.7); MCHC 33.3 g/dl (32.0-36.0); MEAN CELL VOLUME 88.9 fl (80-96); MEAN PLT VOLUME 8.9 fl (7.5-11.1); MONO % 8.3 % (3.8-10.2); NEUT % 54.2 % (42.8-82.8); PLATELET COUNT 231 K/MM3 (134-434); RBC 4.47 M/mm3 (3.60-5.2); WHITE BLOOD COUNT 6.5 K/mm3 (4.0-10.0)
[2018-05-19 15:12] LABS: URINE APPEARANCE SLCLOUDY; URINE BILIRUBIN NEGATIVE (<2.0 mg/dL); URINE COLOR STRAW; URINE GLUCOSE (UA) NEGATIVE (NEGATIVE); URINE KETONE NEGATIVE (NEGATIVE); URINE NITRITE NEGATIVE (NEGATIVE); URINE PROTEIN NEGATIVE (NEGATIVE); URINE UROBILINOGEN NEGATIVE mg/dL (0.2-1.0)
[2018-05-19 15:19] LABS: URINE LEUK ESTERASE 2+ (NEGATIVE)
[2018-05-19 15:21] LABS: COCAINE, UR NEGATIVE ng/ml (CUTOFF=300); METHADONE, UR NEGATIVE ng/ml (CUTOFF=300); OPIATES, URI NEGATIVE ng/ml (CUTOFF=300); PHENCYCLIDINE,URINE NEGATIVE ng/ml (CUTOFF=25); URINE AMPHETAMINES NEGATIVE ng/ml (CUTOFF=500); URINE BARBITURATES NEGATIVE ng/ml (CUTOFF=200); URINE BENZODIAZEPINES NEGATIVE ng/ml (CUTOFF=200)
[2018-05-19 15:23] LABS: ALBUMIN 3.6 g/dl (3.4-5.0); ANION GAP 6 (8-16); BILIRUBIN,TOTAL 0.3 mg/dL (0.2-1.0); BLOOD UREA NITROGEN 9 mg/dL (7-18); CALCIUM 8.9 mg/dL (8.5-10.1); CHLORIDE 110 mmol/L (98-107); CO2 25 mmol/L (21-32); CREATININE 0.8 mg/dL (0.55-1.02); GLUCOSE,RANDOM 87 mg/dL (74-106); LIPASE 98 U/L (73-393); POTASSIUM 3.7 mmol/L (3.5-5.1); SGOT/AST 16 U/L (15-37); SGPT/ALT 13 U/L (12-78); SODIUM 141 mmol/L (136-145); TOT PROT 7.1 g/dl (6.4-8.2)
[2018-05-19 15:25] LABS: ALK PHOS 52 U/L (45-117)
[2018-05-19 15:27] LABS: EPI CELLS MODERATE /HPF (FEW); URINE MUCUS RARE
[2018-05-19 15:28] LABS: HCG,QUALITATIVE URINE NEGATIVE
--- NOTE | 2018-05-19 15:40 | PDOC ---
Attending Attestation - Resident Resident Name: DesmondKarlos - ED Attending Attestation I have performed the following: I have examined & evaluated the patient, The case was reviewed & discussed with the resident, I agree w/resident's findings & plan, Exceptions are as noted - HPI HPI: 05/19/18 15:37 27 F with h/o seizure d/o on keppra presenting to ED with multiple seizures. Per boyfriend, pt has been feeling ill recently with nausea and vomiting. Today , pt had a seizure approx 1 hour prior to arrival, prompting boyfriend to call EMS. Since then, pt has had 4 additional seizures, each lasting a few minutes. Pt had additional seizure in ED, GTC. Pt given ativan 2mg IV and keppra 1000mg IV. At time of evaluation, pt is post-ictal, unable to contribute additional history. - Physicial Exam PE: 05/19/18 15:39 "GENERAL:Somnolent, in no acute distress. HEAD: No signs of trauma EYES: PERRLA, EOMI, sclera anicteric, conjunctiva clear ENT: Auricles normal inspection, hearing grossly normal, nares patent, oropharynx clear without exudates. Moist mucosa NECK: Nontender, no stepoffs, Normal ROM, supple, no lymphadenopathy, JVD, or masses LUNGS: Breath sounds equal, clear to auscultation bilaterally. No wheezes, and no crackles HEART: Regular rate and rhythm, normal S1 and S2, no murmurs, rubs or gallops ABDOMEN: Soft, nontender, normoactive bowel sounds. No guarding, no rebound. No masses EXTREMITIES: Normal range of motion, no edema. No clubbing or cyanosis. No cords, erythema, or tenderness NEUROLOGICAL: Moves all extremities to painful stimulus SKIN: Warm, Dry, normal turgor, no rashes or lesions noted. " - Medical Decision Making 05/19/18 15:39 27 F with seizure d/o presenting in status epi. Pt likely noncompliant with meds in context of vomiting illness. Will evaluate for infectious process as well as metabolic derangement. Also obtain CT head. - Labs, UA, UPT - CXR - CT head - Utox - Ativan PRN - Neuro consult <Chris Owens - Last Filed: 05/19/18 15:36> ED Treatment Course - LABORATORY CBC & Chemistry Diagram: 05/19/18 14:26 05/19/18 14:26 - ADDITIONAL ORDERS Additional order review: Laboratory Results 05/19/18 05/19/18 05/19/18 14:55 14:55 14:26 Sodium 141 Potassium 3.7 Chloride 110 H Carbon Dioxide 25 Anion Gap 6 L BUN 9 Creatinine 0.8 Creat Clearance w eGFR > 60 Random Glucose 87 Calcium 8.9 Total Bilirubin 0.3 AST 16 ALT 13 Alkaline Phosphatase 52 Total Protein 7.1 Albumin 3.6 Lipase 98 Beta HCG, Quant < 1.0 Urine Color Straw Urine Appearance Slcloudy Urine pH 6.0 Ur Specific [place] 1.010 Urine Protein Negative Urine Glucose (UA) Negative Urine Ketones Negative Urine Blood Negative Urine Nitrite Negative Urine Bilirubin Negative Urine Urobilinogen Negative Ur Leukocyte Esterase 2+ H Urine WBC (Auto) None Urine RBC (Auto) None Ur Epithelial Cells Moderate Urine Mucus Rare Urine HCG, Qual Negative Opiates Screen Negative Methadone Screen Negative Barbiturate Screen Negative Phencyclidine Screen Negative Ur Amphetamines Screen Negative MDMA (Ecstasy) Screen Negative Benzodiazepines Screen Negative Cocaine Screen Negative U Marijuana (THC) Screen Positive 05/19/18 14:26 RBC 4.47 MCV 88.9 MCHC 33.3 RDW 14.0 MPV 8.9 Neutrophils % 54.2 Lymphocytes % 36.5 D Monocytes % 8.3 Eosinophils % 0.6 Basophils % 0.4 - RADIOLOGY Radiograph Interpretation: 05/19/18 19:[address] was reviewed by Dr. Owens and over-read by Radiology. IMPRESSION: Normal CT scan of the head with no evidence of acute intracranial pathology. Chest X-Ray was reviewed by Dr. Owens and over-read by Radiology. Chest: Seizure Since the prior study of 04/10/2018 again there are clear lungs, normal mediastinum and sharp angles. The bones and soft tissues are intact. An acute process is not seen. - Medications Given in the ED: ED Medications Discontinued Medications Generic Name Dose Route Start Last Admin Trade Name Freq PRN Reason Stop Dose Admin Sodium Chloride 1,000 mls @ 1,000 mls/hr 05/19/18 15:57 05/19/18 16:00 Normal Saline - IV 05/19/18 16:56 1,000 mls/hr ASDIR STA Administration Levetiracetam 1,000 mg 05/19/18 14:13 05/19/18 14:27 Keppra Injection - IVPB 05/19/18 14:14 1,000 mg ONCE ONE Administration Lorazepam 2 mg 05/19/18 14:12 05/19/18 14:19 Ativan Injection - IVPUSH 05/19/18 14:13 2 mg ONCE ONE Administration Lorazepam 2 mg 05/19/18 14:47 05/19/18 14:53 Ativan Injection - IVPUSH 05/19/18 14:48 2 mg ONCE ONE Administration Metoclopramide HCl 10 mg 05/19/18 14:34 05/19/18 14:44 Reglan Injection - IVPUSH 05/19/18 14:35 10 mg ONCE ONE Administration <Odalis Sultana - Last Filed: 05/19/18 19:08> Attestations - Attestations 05/19/18 19:08 Documentation prepared by Odalis Sultana, acting as medical staff assistant for Chris Owens MD. <Odalis Sultana - Last Filed: 05/19/18 19:08>
[2018-05-19] MEDS ORDERED: SODIUM CHLORIDE 1,000 ML IV STA (15:57)
--- NOTE | 2018-05-19 16:54 | HP ---
Admitting History and Physical - Admission Chief Complaint: seizure History of Present Illness: This is a 27 year old female with pmhx of epilepsy (4-5 years, maintained on Keppra BID 1000 mg). This morning she awoke feeling unwell and has been for a few days. Later, in the morning felt her ears pop. This is warning sign for her she is going to have a seizure, following her ear popping she had an aura and then vomited. EMS was called and per ED record pt had 5 episodes, one in the ED. In ED given ativan 2mg x2 and keppra 1000mg IV x1. Currently, pt states she is under stress, sleeps ~ 3hrs/night d/t insomnia, is hungry and feeling anxious she will have another seizure. 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 ...LMP: 07/21/17 - Smoking History Smoking history: Current every day smoker Have you smoked in the past 12 months: Yes Aproximately how many cigarettes per day: 5 - Alcohol/Substance Use Hx Alcohol Use: No Home Medications - Allergies Allergies/Adverse Reactions: Allergies Allergy/AdvReac Type Severity Reaction Status Date / Time NSAIDS (Non-Steroidal Allergy Severe Swelling Verified 05/19/18 14:05 Anti-Inflamma ibuprofen [From Motrin] Allergy Verified 05/19/18 14:05 ketorolac [From Toradol] Allergy Verified 05/19/18 14:05 tramadol Allergy Verified 05/19/18 14:05 - Home Medications Home Medications: Ambulatory Orders levETIRAcetam [Keppra -] 1,000 mg PO DAILY 05/19/18 Review of Systems - Review of Systems Constitutional: reports: Weakness Eyes: reports: No Symptoms HENT: reports: No Symptoms Neck: reports: No Symptoms Cardiovascular: reports: No Symptoms Respiratory: reports: No Symptoms Gastrointestinal: reports: No Symptoms Genitourinary: reports: No Symptoms Musculoskeletal: reports: Other (muscles aching) Integumentary: reports: No Symptoms Neurological: reports: Seizure Endocrine: reports: No Symptoms Hematology/Lymphatic: reports: No Symptoms Psychiatric: reports: No Symptoms Physical Examination Vital Signs: Vital Signs Temperature 98.8 F 05/19/18 13:55 Pulse Rate 60 05/19/18 15:59 Respiratory Rate 18 05/19/18 15:59 Blood Pressure 88/57 05/19/18 15:59 O2 Sat by Pulse Oximetry (%) 100 05/19/18 15:59 Constitutional: Yes: Anxious Eyes: Yes: Conjunctiva Clear HENT: Yes: Atraumatic Neck: Yes: Supple Cardiovascular: Yes: Regular Rate and Rhythm, S1, S2 Respiratory: Yes: Regular, CTA Bilaterally Gastrointestinal: Yes: Normal Bowel Sounds, Soft Renal/: Yes: WNL Edema: No Peripheral Pulses WNL: Yes Integumentary: Yes: WNL Neurological: Yes: Alert, Oriented, Cran Nerves II-XII Intact Psychiatric: Yes: Alert, Oriented Labs: CBC, BMP 05/19/18 14:26 05/19/18 14:26 Imaging - Results Cat Scan: Pending Problem List - Problems (1) Seizure disorder Code(s): G40.909 - EPILEPSY, UNSP, NOT INTRACTABLE, WITHOUT STATUS EPILEPTICUS Assessment/Plan Assessment: 27 year old female admitted with seizure x5 Plan: 1. Seizure - Keppra 1000mg BID - Ativan 2mg prn - Head CT pending - EKG, CXR pending - UA with +2 le no wbc - Neurology consulted 2. Smoking - 5/day - Declines patch - Counseled on cessation Visit type - Emergency Visit Emergency Visit: Yes Care time: The patient presented to the Emergency Department on the above date and was hospitalized for further evaluation of their emergent condition. - New Patient This patient is new to me today: Yes Date on this admission: 05/19/18 - Critical Care Critical Care patient: No Hospitalist Screening - Colonoscopy Questionnaire Colonoscopy Questionnaire: Colonoscopy Questionnaire - Patient: 50 - 75 years old and never had a screening colonoscopy: Unknown History of colon or rectal polyps, or CA: Unknown History of IBD, Crohn's disease or UC: Unknown History of abdominal radiation therapy as a child: Unknown - Relative: 1 with colon or rectal CA, or polyps at age 60 or younger: Unknown Colon or rectal CA diagnosed at age 45 or younger: Unknown Multiple relatives with colon or rectal CA: Unknown - Outcome: Screening Result: Negative Screen
[2018-05-19] MEDS ORDERED: ACETAMINOPHEN 1000 MG/100 ML VIAL (NON FORMULARY) IVPB PRN (17:13)
[2018-05-19] MEDS ORDERED: ACETAMINOPHEN 1000 MG/100 ML VIAL (NON FORMULARY) IVPB ONE (17:13)
[2018-05-19] MEDS ORDERED: ONDANSETRON 4 MG/2 ML VIAL IVPUSH PRN (17:14)
[2018-05-19] MEDS ORDERED: ACETAMINOPHEN INJECTION 100 ML IVPB ONE (19:17)
[2018-05-19] MEDS: SODIUM CHLORIDE 1,000 ML IV SCH (20:50)
[2018-05-19] MEDS: levETIRAcetam 500 MG/5 ML INJECTION VIAL IVPB SCH (21:03)
[2018-05-19] MEDS: ACETAMINOPHEN 325 MG TABLET (FP) PO PRN (22:43)
[2018-05-19] MEDS: LORazepam 2 MG/ML SDV VIAL IVPUSH PRN (22:44)
[2018-05-20] MEDS: SODIUM CHLORIDE 1,000 ML IV SCH ×2 (06:29→17:33)
[2018-05-20 07:34] LABS: BASO % 0.6 % (0-2.0); EOS % 0.7 % (0-4.5); HEMATOCRIT 35.3 % (32.4-45.2); LYMPH % 44.3 % (8-40); MCH 30.4 pg (25.7-33.7); MEAN CELL VOLUME 89.3 fl (80-96); MEAN PLT VOLUME 8.9 fl (7.5-11.1); MONO % 7.6 % (3.8-10.2); NEUT % 46.8 % (42.8-82.8); PLATELET COUNT 190 K/MM3 (134-434); RBC 3.95 M/mm3 (3.60-5.2); RDW 13.6 % (11.6-15.6); WHITE BLOOD COUNT 5.2 K/mm3 (4.0-10.0)
[2018-05-20] MEDS: ACETAMINOPHEN 325 MG TABLET (FP) PO PRN (07:52)
[2018-05-20 08:07] LABS: ALBUMIN 3.1 g/dl (3.4-5.0); ALK PHOS 43 U/L (45-117); ANION GAP 8 (8-16); BILIRUBIN,TOTAL 0.4 mg/dL (0.2-1.0); BLOOD UREA NITROGEN 6 mg/dL (7-18); CHLORIDE 112 mmol/L (98-107); CO2 24 mmol/L (21-32); CREATININE 0.6 mg/dL (0.55-1.02); GLUCOSE,RANDOM 76 mg/dL (74-106); PHOSPHOROUS 2.8 mg/dL (2.5-4.9); POTASSIUM 3.8 mmol/L (3.5-5.1); SGOT/AST 14 U/L (15-37); SGPT/ALT 10 U/L (12-78); SODIUM 144 mmol/L (136-145); TOT PROT 5.9 g/dl (6.4-8.2)
[2018-05-20] MEDS: LORazepam 2 MG/ML SDV VIAL IVPUSH PRN ×2 (08:15→14:15)
[2018-05-20] MEDS: levETIRAcetam 500 MG/5 ML INJECTION VIAL IVPB SCH (09:24)
[2018-05-20] MEDS ORDERED: DIVALPROEX SODIUM 500 MG TABLET E.C. PO SCH (10:30)
--- NOTE | 2018-05-20 11:28 | CONSULT ---
Consult - text type - Consultation Consultation Note: Neurology History of Present Illness: 27 year old female with reported history of seizures and states she woke up feeling ill and believes this to be an aura for seizures. Reported having multiple seizures at home, EMS was called and reportedly one episode in ER. Given Ativan in ER, keppra loaded. CT head reviewed and without acute changes. During encounter, patient very guarded and inconsistent with history. Says she doesn't sleep, perpetually anxious, my suspicion is nonepileptic seizures. She also had marijuana in her system which says her neurologist advised her to use. 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 - Smoking History Smoking history: Current every day smoker Have you smoked in the past 12 months: Yes Aproximately how many cigarettes per day: 5 - Alcohol/Substance Use Hx Alcohol Use: No Home Medications - Allergies Allergies/Adverse Reactions: Allergies Allergy/AdvReac Type Severity Reaction Status Date / Time NSAIDS (Non-Steroidal Allergy Severe Swelling Verified 05/19/18 14:05 Anti-Inflamma ibuprofen [From Motrin] Allergy Verified 05/19/18 14:05 ketorolac [From Toradol] Allergy Verified 05/19/18 14:05 tramadol Allergy Verified 05/19/18 14:05 - Home Medications Home Medications: Ambulatory Orders levETIRAcetam [Keppra -] 1,000 mg PO DAILY 05/19/18 Review of Systems - Review of Systems Constitutional: reports: Weakness Eyes: reports: No Symptoms HENT: reports: No Symptoms Neck: reports: No Symptoms Cardiovascular: reports: No Symptoms Respiratory: reports: No Symptoms Gastrointestinal: reports: No Symptoms Genitourinary: reports: No Symptoms Musculoskeletal: reports: Other (muscles aching) Integumentary: reports: No Symptoms Neurological: reports: Seizure Endocrine: reports: No Symptoms Hematology/Lymphatic: reports: No Symptoms Psychiatric: reports: No Symptoms Physical Examination Vital Signs Temperature 98.4 F 05/20/18 09:35 Pulse Rate 68 05/20/18 09:35 Respiratory Rate 18 05/20/18 09:35 Blood Pressure 108/76 05/20/18 09:35 O2 Sat by Pulse Oximetry (%) 98 05/20/18 01:14 Constitutional: Yes: Anxious, awake and alert Eyes: Yes: Conjunctiva Clear HENT: Yes: Atraumatic Neck: Yes: Supple Cardiovascular: Yes: Regular Rate and Rhythm, S1, S2 Respiratory: Yes: Regular, CTA Bilaterally Gastrointestinal: Yes: Normal Bowel Sounds, Soft Renal/: Yes: WNL Edema: No Peripheral Pulses WNL: Yes Integumentary: Yes: WNL Neurological: Yes: Alert, Oriented, Cran Nerves II-XII Intact, moves all extremities, sensory intact Psychiatric: Yes: Alert, Oriented CBCD WBC 5.2 K/mm3 (4.0-10.0) 05/20/18 06:40 RBC 3.95 M/mm3 (3.60-5.2) 05/20/18 06:40 Hgb 12.0 GM/dL (10.7-15.3) 05/20/18 06:40 Hct 35.3 % (32.4-45.2) 05/20/18 06:40 MCV 89.3 fl (80-96) 05/20/18 06:40 MCHC 34.0 g/dl (32.0-36.0) 05/20/18 06:40 RDW 13.6 % (11.6-15.6) 05/20/18 06:40 Plt Count 190 K/MM3 (134-434) 05/20/18 06:40 MPV 8.9 fl (7.5-11.1) 05/20/18 06:40 CMP Sodium 144 mmol/L (136-145) 05/20/18 06:40 Potassium 3.8 mmol/L (3.5-5.1) 05/20/18 06:40 Chloride 112 mmol/L (98-107) H 05/20/18 06:40 Carbon Dioxide 24 mmol/L (21-32) 05/20/18 06:40 Anion Gap 8 (8-16) 05/20/18 06:40 BUN 6 mg/dL (7-18) L 05/20/18 06:40 Creatinine 0.6 mg/dL (0.55-1.02) 05/20/18 06:40 Creat Clearance w eGFR > 60 (>60) 05/20/18 06:40 Random Glucose 76 mg/dL (74-106) 05/20/18 06:40 Calcium 8.0 mg/dL (8.5-10.1) L 05/20/18 06:40 Total Bilirubin 0.4 mg/dL (0.2-1.0) 05/20/18 06:40 AST 14 U/L (15-37) L 05/20/18 06:40 ALT 10 U/L (12-78) L 05/20/18 06:40 Alkaline Phosphatase 43 U/L (45-117) L 05/20/18 06:40 Total Protein 5.9 g/dl (6.4-8.2) L 05/20/18 06:40 Albumin 3.1 g/dl (3.4-5.0) L 05/20/18 06:[address] head reviewed Plan 27 year old female with reported history of seizures and states she woke up feeling ill and believes this to be an aura for seizures. Reported having multiple seizures at home, EMS was called and reportedly one episode in ER. Given Ativan in ER, keppra loaded. CT head reviewed and without acute changes. During encounter, patient very guarded and inconsistent with history. Says she doesn't sleep, perpetually anxious, my suspicion is nonepileptic seizures. She also had marijuana in her system which says her neurologist advised her to use. Consider psych eval. Keppra can be increased to 1250 twice daily. Depakote can also be added 500mg twice daily. Should have outpatient follow up with her neurologist who would know her well. Should avoid toxic substance. Maintain hydration. Increased would be of benefit.
--- NOTE | 2018-05-20 11:31 | PN ---
Physical Exam: SUBJECTIVE: Patient seen and examined this AM with neurology. PT states her body hurts after having 7 seizures. Additional, she has not slept in several days OBJECTIVE: Vital Signs Period Temp Pulse Resp BP Sys/Ho Pulse Ox Last 24 Hr 98 F-98.8 F 50-68 18-20 88-118/57-90 98-100 PE Neuro: alert, awake, cn 2-12intact Pulm: regular, no sob CV: s1 s2 rrr Abd: s nt nd + bs Ext: no le edema Laboratory Results - last 24 hr 05/19/18 05/19/18 05/19/18 14:26 14:26 14:55 WBC 6.5 RBC 4.47 Hgb 13.3 Hct 39.8 MCV 88.9 MCH 29.6 MCHC 33.3 RDW 14.0 Plt Count 231 MPV 8.9 Absolute Neuts (auto) 3.5 Neutrophils % 54.2 Lymphocytes % 36.5 D Monocytes % 8.3 Eosinophils % 0.6 Basophils % 0.4 Nucleated RBC % 0 Sodium 141 Potassium 3.7 Chloride 110 H Carbon Dioxide 25 Anion Gap 6 L BUN 9 Creatinine 0.8 Creat Clearance w eGFR > 60 Random Glucose 87 Calcium 8.9 Phosphorus Magnesium Total Bilirubin 0.3 AST 16 ALT 13 Alkaline Phosphatase 52 Total Protein 7.1 Albumin 3.6 Lipase 98 Beta HCG, Quant < 1.0 Urine Color Straw Urine Appearance Slcloudy Urine pH 6.0 Ur Specific [place] 1.010 Urine Protein Negative Urine Glucose (UA) Negative Urine Ketones Negative Urine Blood Negative Urine Nitrite Negative Urine Bilirubin Negative Urine Urobilinogen Negative Ur Leukocyte Esterase 2+ H Urine WBC (Auto) None Urine RBC (Auto) None Ur Epithelial Cells Moderate Urine Mucus Rare Urine HCG, Qual Negative Opiates Screen Methadone Screen Barbiturate Screen Phencyclidine Screen Ur Amphetamines Screen MDMA (Ecstasy) Screen Benzodiazepines Screen Cocaine Screen U Marijuana (THC) Screen 05/19/18 05/20/18 05/20/18 14:55 06:40 06:40 WBC 5.2 RBC 3.95 Hgb 12.0 Hct 35.3 MCV 89.3 MCH 30.4 MCHC 34.0 RDW 13.6 Plt Count 190 MPV 8.9 Absolute Neuts (auto) 2.4 Neutrophils % 46.8 Lymphocytes % 44.3 H D Monocytes % 7.6 Eosinophils % 0.7 Basophils % 0.6 Nucleated RBC % 0 Sodium 144 Potassium 3.8 Chloride 112 H Carbon Dioxide 24 Anion Gap 8 BUN 6 L Creatinine 0.6 Creat Clearance w eGFR > 60 Random Glucose 76 Calcium 8.0 L Phosphorus 2.8 Magnesium 2.0 Total Bilirubin 0.4 AST 14 L ALT 10 L Alkaline Phosphatase 43 L Total Protein 5.9 L Albumin 3.1 L Lipase Beta HCG, Quant Urine Color Urine Appearance Urine pH Ur Specific [place] Urine Protein Urine Glucose (UA) Urine Ketones Urine Blood Urine Nitrite Urine Bilirubin Urine Urobilinogen Ur Leukocyte Esterase Urine WBC (Auto) Urine RBC (Auto) Ur Epithelial Cells Urine Mucus Urine HCG, Qual Opiates Screen Negative Methadone Screen Negative Barbiturate Screen Negative Phencyclidine Screen Negative Ur Amphetamines Screen Negative MDMA (Ecstasy) Screen Negative Benzodiazepines Screen Negative Cocaine Screen Negative U Marijuana (THC) Screen Positive Active Medications Generic Name Dose Route Start Last Admin Trade Name Freq PRN Reason Stop Dose Admin Acetaminophen 1,000 mg 05/19/18 17:13 Ofirmev Injection - IVPB Q6H PRN PAIN LEVEL 1-5 Acetaminophen 650 mg 05/19/18 22:36 05/20/18 07:52 Tylenol - PO 650 mg Q6H PRN Administration Fever Or Pain Divalproex Sodium 500 mg 05/20/18 10:30 Depakote - PO BID GUADALUPE Sodium Chloride 1,000 mls @ 83 mls/hr 05/19/18 17:15 05/20/18 06:29 Normal Saline - IV 83 mls/hr ASDIR GUADALUPE Administration Levetiracetam 1,000 mg 05/19/18 22:00 05/20/18 09:24 Keppra Injection - IVPB 1,000 mg BID GUADALUPE Administration Lorazepam 2 mg 05/19/18 17:13 05/20/18 08:15 Ativan Injection - IVPUSH 2 mg TID PRN Administration ANXIETY Ondansetron HCl 4 mg 05/19/18 17:14 Zofran Injection IVPUSH Q6H PRN NAUSEA Assessment: 27 year old female admitted with seizure x5 Plan: 1. Seizure vs non epileptic seizures - Increase keppra 1250mg BID - Added depakote 500mg BID, however pt states she has been on in past and does not wish to take, she wishes neurologist would discuss this with her - Ativan 2mg prn - Head CT negative - Contacted pt pharmacy [facility], pt has been prescribed trazadone, seroquel, prazosin in 01/2018 however did not pick them up d/t insurance issues - EEG ordered - Continue IVF - Tylenol prn, would caution with narcotics d/t unwarranted change in mental status - Discussed above with Neurology 2. Smoking - 5/day - Declines patch - Counseled on cessation Problem List - Problems (1) Seizure disorder Code(s): G40.909 - EPILEPSY, UNSP, NOT INTRACTABLE, WITHOUT STATUS EPILEPTICUS Visit type - Emergency Visit Emergency Visit: Yes ED Registration Date: 05/19/18 Care time: The patient presented to the Emergency Department on the above date and was hospitalized for further evaluation of their emergent condition. - New Patient This patient is new to me today: No - Critical Care Critical Care patient: No
--- NOTE | 2018-05-20 11:43 | RAPID ---
Physical Examination Vital Signs: Vital Signs Temperature 98.4 F 05/20/18 09:35 Pulse Rate 68 05/20/18 09:35 Respiratory Rate 18 05/20/18 09:35 Blood Pressure 108/76 05/20/18 09:35 O2 Sat by Pulse Oximetry (%) 98 05/20/18 01:14 Labs: CBC, BMP 05/20/18 06:40 05/20/18 06:40 Rapid Response - Rapid Response Assessment: Called for rapid response pt found on hands and knees in bathroom after urinating, with ?seizure like activity. Pt states she is weak and body hurts o2 sat 100% on room air, vss Transferred pt from floor to wheel chair to bed Neurology made aware
--- NOTE | 2018-05-20 11:47 | FALL ---
Fall Exam - Event Witnessed fall: No Location of Fall: Bathroom Fall from: Toilet - Pre-Fall Mental Status: Alert Current Medications: Current Medications Generic Name Dose Route Start Last Admin Trade Name Freq PRN Reason Stop Dose Admin Acetaminophen 1,000 mg 05/19/18 17:13 Ofirmev Injection - IVPB Q6H PRN PAIN LEVEL 1-5 Acetaminophen 650 mg 05/19/18 22:36 05/20/18 07:52 Tylenol - PO 650 mg Q6H PRN Administration Fever Or Pain Divalproex Sodium 500 mg 05/20/18 10:30 Depakote - PO BID GUADALUPE Sodium Chloride 1,000 mls @ 83 mls/hr 05/19/18 17:15 05/20/18 06:29 Normal Saline - IV 83 mls/hr ASDIR GUADALUPE Administration Levetiracetam 1,000 mg 05/19/18 22:00 05/20/18 09:24 Keppra Injection - IVPB 1,000 mg BID GUADALUPE Administration Lorazepam 2 mg 05/19/18 17:13 05/20/18 08:15 Ativan Injection - IVPUSH 2 mg TID PRN Administration ANXIETY Ondansetron HCl 4 mg 05/19/18 17:14 Zofran Injection IVPUSH Q6H PRN NAUSEA - Post-Fall Patient Outcome: No Injury Treatment: None Vital Signs: Vital Signs Temperature 98.4 F 05/20/18 09:35 Pulse Rate 68 05/20/18 09:35 Respiratory Rate 18 05/20/18 09:35 Blood Pressure 108/76 05/20/18 09:35 O2 Sat by Pulse Oximetry (%) 98 05/20/18 01:14 LOC Post-Fall: Unchanged Identify factors for HIGH RISK for Head Injury: None of the above
--- NOTE | 2018-05-20 14:32 | EKG ---
Test Reason : Blood Pressure : / mmHG Vent. Rate : 059 BPM Atrial Rate : 059 BPM P-R Int : 166 ms QRS Dur : 074 ms QT Int : 416 ms P-R-T Axes : 054 065 052 degrees QTc Int : 411 ms SINUS BRADYCARDIA OTHERWISE NORMAL ECG WHEN COMPARED WITH ECG OF 10-APR-2018 18:22, NO SIGNIFICANT CHANGE WAS FOUND Confirmed by WILMER STEWART MD ([id number]) on 05/20/2018 2:31:56 PM Referred By: Confirmed By:WILMER STEWART MD
--- NOTE | 2018-05-20 16:20 | RAPID ---
Physical Examination Vital Signs: Vital Signs Temperature 98 F 05/20/18 14:18 Pulse Rate 54 L 05/20/18 14:18 Respiratory Rate 18 05/20/18 14:18 Blood Pressure 108/69 05/20/18 14:18 O2 Sat by Pulse Oximetry (%) 96 05/20/18 09:00 Labs: CBC, BMP 05/20/18 06:40 05/20/18 06:40 Rapid Response - Rapid Response Assessment: Patient smashed IV pole, ripped out IV and then threw herself to the floor and hit her head. Following evaluation, pt stood up grabbed her things and eloped. On her way down she fell down the stairs in front of 3W door. VSS stable, pt initially non talkative and not moving. Soft collar placed, then pt reported pain to back and decreased sensation to her lower ext. Upon transfer to hard transfer board pt able to use lower ext to lower legs. Had long discussion with finance. Pt has personal history of substance abuse, she was in rehab in 01/2018 for possible cocaine. He knows she takes seroquel but unaware of any other medications. [facility] has record of filled oxycodone prescription in 01/2018, however pt did not fill trazadone, seroquel, or prazosin. She states there were issues with her insurance. Laure[place]alty states she usually goes to [facility], where her neurologist is, however today she stated she switched to neurologist in [facility], he stated she has a tendency to lie. U Tox negative for opiates, benzos, + marijuana Now pt returns to floor with violent behavior, Head CT neg, given haldol 5mg IM x1 Psych consulted
[2018-05-20] MEDS ORDERED: HALOPERIDOL LACTATE 5 MG/ML IM ONE (16:23)
[2018-05-20] MEDS ORDERED: LORazepam 2 MG/ML SDV VIAL IVPUSH ONE (17:30)
[2018-05-20] MEDS ORDERED: LORazepam 2 MG/ML SDV VIAL IM ONE (18:30)
[2018-05-20] MEDS ORDERED: LORazepam 2 MG/ML SDV VIAL IM PRN ×2 (18:57→19:01)
[2018-05-20] MEDS ORDERED: HALOPERIDOL LACTATE 5 MG/ML IM PRN (18:58)
[2018-05-20] MEDS ORDERED: ONDANSETRON *ODT* 4 MG TABLET SL PRN (18:58)
--- NOTE | 2018-05-20 19:41 | CON.PSY ---
Psychiatry Consult Chief Complaint: Patient seen and spoke witrh her fiance. Just discharged from [facility] after one month IN Patient stay. On seroquel and Lexapro. Symptoms: reports: Depressed Mood, Conduct Problems, Oppositionalism - Previous Psychiatric Treatment Outpatient: More than 6 mos ago Inpatient: None - Previous Substance Abuse Treatment Inpatient: Within the last 12 months - Reason for Previous Treatment Reason for Previous Treatment: Major Depression, Alcohol Abuse, Other Drugs - Current Medications Current Medications: Active Medications Acetaminophen (Ofirmev Injection -) 1,000 mg IVPB Q6H PRN PRN Reason: PAIN LEVEL 1-5 Acetaminophen (Tylenol -) 650 mg PO Q6H PRN PRN Reason: Fever Or Pain Last Admin: 05/20/18 07:52 Dose: 650 mg Escitalopram Oxalate (Lexapro -) 20 mg PO DAILY [facility] Haloperidol (Haldol Injection (Fast Acting) -) 5 mg IM Q12H PRN PRN Reason: AGITATION Levetiracetam (Keppra -) 1,250 mg PO BID [facility] Lorazepam (Ativan Injection -) 2 mg IM ONCE PRN PRN Reason: AGITIATION Stop: 05/21/18 19:00 Lorazepam (Ativan Injection -) 2 mg IM Q8H PRN PRN Reason: ANXIETY Ondansetron HCl (Zofran Odt -) 4 mg SL Q6H PRN PRN Reason: NAUSEA AND/OR VOMITING - Allergies Allergies: Allergies Allergy/AdvReac Type Severity Reaction Status Date / Time NSAIDS (Non-Steroidal Allergy Severe Swelling Verified 05/19/18 14:05 Anti-Inflamma ibuprofen [From Motrin] Allergy Verified 05/19/18 14:05 ketorolac [From Toradol] Allergy Verified 05/19/18 14:05 tramadol Allergy Verified 05/19/18 14:05 - Current Living Status Usual Living Arrangement: With Significant Other - Current Mental Status Evaluation Appearance: Disheveled Attitude: Belligerent - Affect Affect: Full Range Appropriateness: Appropriate to Content - Mood Mood: Angry - Speech/Language Expressive: Coherent - Psychomotor Activity Psychomotor Activity: Normal - Thought Process Thought Process: Intact - Thought Content Hallucinations: Absent Delusions: Absent - Self Perception Self Perception: No Impairment - Cognition Attention: Alert Memory, Immediate Recall: Intact Memory, Short Term: 3/3 Memory, Remote with Promptin/3 - Concentration Serial Sevens Intact: No Simple Calculations Intact: Yes - Abstraction Proverb Interpretation: Intact Judgement: Minimally Impaired - Insight Insight: Intact - Impulse Control Impulse Control: Moderately Impaired - Suicidal Ideation Suicidal Ideation: No - Homicidal Ideation Homicidal Ideation: No Assessment/Plan 1) Start Lexapro and Seroquel. 2) Discharge when medically stable 3) Psych follow up In [place], has an appointment scheduled.
[2018-05-20] MEDS: levETIRAcetam 500 MG TABLET (FP) PO SCH (21:14)
[2018-05-20] MEDS ORDERED: QUEtiapine FUMARATE 200 MG TABLET PO SCH (22:00)
[2018-05-21] MEDS ORDERED: PT OWN MED DRAWER 7, Y5N ONE (08:54)
[2018-05-21] MEDS: levETIRAcetam 500 MG TABLET (FP) PO SCH (09:11)
--- NOTE | 2018-05-21 09:50 | PN ---
Progress Note (short form) - Note Progress Note: Neurology History of Present Illness: 27 year old female with reported history of seizures and states she woke up feeling ill and believes this to be an aura for seizures. Reported having multiple seizures at home, EMS was called and reportedly one episode in ER. Given Ativan in ER, keppra loaded. CT head reviewed and without acute changes. During encounter, patient very guarded and inconsistent with history. Says she doesn't sleep, perpetually anxious, my suspicion is nonepileptic seizures. She also had marijuana in her system which says her neurologist advised her to use. Please see notes from yesterday regarding patient aggitation and throwing of IV poll, attempt to elope, etc. Psych consult reviewed, rec'd seroquel lexapro. Much more calm this AM, not beligerent or aggitated. No seizures overnight. Neurologically stable, likely for discharge. Discussed with RN TRANSPORT. Ct C, L, T spine reviewed. Keeps asking for pain medication. Active Medications Acetaminophen (Ofirmev Injection -) 1,000 mg IVPB Q6H PRN PRN Reason: PAIN LEVEL 1-5 Acetaminophen (Tylenol -) 650 mg PO Q6H PRN PRN Reason: Fever Or Pain Last Admin: 05/20/18 07:52 Dose: 650 mg Escitalopram Oxalate (Lexapro -) 20 mg PO DAILY [facility] Last Admin: 05/21/18 09:11 Dose: 20 mg Haloperidol (Haldol Injection (Fast Acting) -) 5 mg IM Q12H PRN PRN Reason: AGITATION Levetiracetam (Keppra -) 1,250 mg PO BID [facility] Last Admin: 05/21/18 09:11 Dose: 1,250 mg Lorazepam (Ativan Injection -) 2 mg IM ONCE PRN PRN Reason: AGITIATION Stop: 05/21/18 19:00 Lorazepam (Ativan Injection -) 2 mg IM Q8H PRN PRN Reason: ANXIETY Ondansetron HCl (Zofran Odt -) 4 mg SL Q6H PRN PRN Reason: NAUSEA AND/OR VOMITING Quetiapine Fumarate (Seroquel -) 200 mg PO HS [facility] Last Admin: 05/20/18 21:14 Dose: 200 mg Physical Examination Vital Signs Period Temp Pulse Resp BP Sys/Ho Pulse Ox Last 24 Hr 97.7 F-98.4 F 52-75 18-20 95-110/52-69 96-98 Constitutional: Yes: Anxious, awake and alert Eyes: Yes: Conjunctiva Clear HENT: Yes: Atraumatic Neck: Yes: Supple Cardiovascular: Yes: Regular Rate and Rhythm, S1, S2 Respiratory: Yes: Regular, CTA Bilaterally Gastrointestinal: Yes: Normal Bowel Sounds, Soft Renal/: Yes: WNL Edema: No Peripheral Pulses WNL: Yes Integumentary: Yes: WNL Neurological: Yes: Alert, Oriented, Cran Nerves II-XII Intact, moves all extremities, sensory intact Psychiatric: Yes: Alert, Oriented CBCD WBC 5.2 K/mm3 (4.0-10.0) 05/20/18 06:40 RBC 3.95 M/mm3 (3.60-5.2) 05/20/18 06:40 Hgb 12.0 GM/dL (10.7-15.3) 05/20/18 06:40 Hct 35.3 % (32.4-45.2) 05/20/18 06:40 MCV 89.3 fl (80-96) 05/20/18 06:40 MCHC 34.0 g/dl (32.0-36.0) 05/20/18 06:40 RDW 13.6 % (11.6-15.6) 05/20/18 06:40 Plt Count 190 K/MM3 (134-434) 05/20/18 06:40 MPV 8.9 fl (7.5-11.1) 05/20/18 06:40 CMP Sodium 144 mmol/L (136-145) 05/20/18 06:40 Potassium 3.8 mmol/L (3.5-5.1) 05/20/18 06:40 Chloride 112 mmol/L (98-107) H 05/20/18 06:40 Carbon Dioxide 24 mmol/L (21-32) 05/20/18 06:40 Anion Gap 8 (8-16) 05/20/18 06:40 BUN 6 mg/dL (7-18) L 05/20/18 06:40 Creatinine 0.6 mg/dL (0.55-1.02) 05/20/18 06:40 Creat Clearance w eGFR > 60 (>60) 05/20/18 06:40 Calcium 8.0 mg/dL (8.5-10.1) L 05/20/18 06:40 Total Bilirubin 0.4 mg/dL (0.2-1.0) 05/20/18 06:40 AST 14 U/L (15-37) L 05/20/18 06:40 ALT 10 U/L (12-78) L 05/20/18 06:40 Alkaline Phosphatase 43 U/L (45-117) L 05/20/18 06:40 Total Protein 5.9 g/dl (6.4-8.2) L 05/20/18 06:40 Albumin 3.1 g/dl (3.4-5.0) L 05/20/18 06:[address] head reviewed CT C, T, L spine reviewed Plan 27 year old female with reported history of seizures and states she woke up feeling ill and believes this to be an aura for seizures. Reported having multiple seizures at home, EMS was called and reportedly one episode in ER. Given Ativan in ER, keppra loaded. CT head reviewed and without acute changes. During encounter, patient very guarded and inconsistent with history. Says she doesn't sleep, perpetually anxious, my suspicion is nonepileptic seizures. She also had marijuana in her system which says her neurologist advised her to use. Please see notes from yesterday regarding patient aggitation and throwing of IV poll, attempt to elope, etc. Psych consult reviewed, rec'd seroquel lexapro. Much more calm this AM, not beligerent or aggitated. No seizures overnight. Discussed with RN TRANSPORT. Ct C, L, T spine reviewed. Keeps asking for pain medication. On Keppra 1250mg twice daily. Continue psych meds. Should have outpatient follow up with her neurologist who would know her well. Should avoid toxic substance. Maintain hydration. Keeps asking for pain medication, would not want confusion and further changes in mental status. Neurologically stable, likely for discharge.
[2018-05-21] MEDS ORDERED: ESCITALOPRAM OXALATE 20 MG TABLET (FP) PO SCH (10:00)
[2018-05-21 10:19] VITALS: BP 105/66; PULSE 66; TEMP 97.9
--- NOTE | 2018-05-21 11:07 | DS ---
Physical Exam: SUBJECTIVE: Patient seen and examined. States she is feeling better today, mostly tired. no further combative agitation overnight OBJECTIVE: Vital Signs Period Temp Pulse Resp BP Sys/Ho Pulse Ox Last 24 Hr 97.7 F-98.4 F 52-75 18-20 95-110/52-69 96-98 PE Neuro: alert, awake, cn 2-12intact Pulm: regular, no sob CV: s1 s2 rrr Abd: s nt nd + bs Ext: no le edema HOSPITAL COURSE: Date of Admission:05/19/18 Date of Discharge: 05/21/18 Minutes to complete discharge: 37 Discharge Summary Reason For Visit: SEIZURE DISORDER Current Active Problems Seizure disorder (Acute) Hospital Course: Initial Hospital Course: Briefly, this 27 year old female with pmhx of epilepsy (4-5 years, maintained on Keppra BID 1000 mg). She awoke in the morning feeling unwell and has been for a few days. Later, in the morning felt her ears pop. This is warning sign for her she is going to have a seizure, following her ear popping she had an aura and then vomited. EMS was called and per ED record pt had 5 episodes, one in the ED. In ED given ativan 2mg x2 and keppra 1000mg IV x1. Underwent rehab at [facility] facility after one month IN Patient stay in January 2018 x2 rapid responses, falls and fell down the stairs, cat scan's negative, haldol given with appropriate affect Subsequent Hospital Course/Progress Note/DC Summary: Assessment: 27 year old female admitted with seizure x5 Plan: 1. Seizure vs non epileptic seizures - Increase keppra 1250mg BID - EEG done, can follow as outpt - Head CT negative 2. Psych, agitation - Restarted seroquel 200mg HS - Restarted lexapro 20mg daily - Follow up with outside Psych and outside neurologist - PT aware and understands Condition: Stable - Instructions Diet, Activity, Other Instructions: Please return to the ED for any new, persistent, or worsening symptoms. Follow up with your PCP and neurologist in 1 week Take new medications as directed and keep scheduled appt with psych in [place] Disposition: HOME - Home Medications Comprehensive Discharge Medication List: Ambulatory Orders Levetiracetam [Keppra] 1,250 mg PO BID #80 tablet 05/20/18 Escitalopram Oxalate [Lexapro -] 20 mg PO DAILY #30 tablet 05/21/18 Quetiapine Fumarate [Seroquel -] 200 mg PO HS #30 tablet 05/21/18 Problem List - Problems (1) Seizure disorder Code(s): G40.909 - EPILEPSY, UNSP, NOT INTRACTABLE, WITHOUT STATUS EPILEPTICUS This patient is new to me today: No Emergency Visit: Yes ED Registration Date: 05/19/18 Care time: The patient presented to the Emergency Department on the above date and was hospitalized for further evaluation of their emergent condition. Critical Care patient: No - Discharge Referral Referred to [facility] No Physician Referral: Taqueria Chacon MD ([facility])
== END 2018-05-21 11:41 | disposition home or self-care (01) ==
LOC: JER 13:51 → JERBED 16:14 → J5S 19:57
PROVIDERS: ADMIT Internal Medicine; ATTEND Nurse Practitioner Acute Care
DX: G40.802 Other epilepsy, not intractable, without status epilepticus (principal); F17.210 Nicotine dependence, cigarettes, uncomplicated; Z88.8 Allergy status to other drugs, medicaments and biological substances; Z86.59 Personal history of other mental and behavioral disorders; W18.39XA Other fall on same level, initial encounter; Y93.9 Activity, unspecified; Y92.239 Unspecified place in hospital as the place of occurrence of the external cause; Y99.8 Other external cause status
CPT/HCPCS: 36415; 70450-TC; 71045-TC-FY; 72125-TC; 72128-TC; 72131-TC; 80053; 80307; 81003; 81015; 83690; 83735; 84100; 84702; 84703; 85025; 93005; 93010; 95816; 99284-25; G0378; J0131; J7030

== ENCOUNTER 2018-09-15 08:53 | Emergency (ER) | payer OTHER ==
[2018-09-15] MEDS ORDERED: ACETAMINOPHEN 500 MG TABLET (FP) PO ONE (09:11)
[2018-09-15] MEDS ORDERED: SODIUM CHLORIDE 1,000 ML IV STA (09:11)
--- NOTE | 2018-09-15 09:11 | PDOC ---
ED Treatment Course - LABORATORY CBC & Chemistry Diagram: 09/15/18 09:13 09/15/18 09:13 Medical Decision Making - Medical Decision Making 09/15/18 09:10 Pt seen by Midlevel Provider under my direct supervision Pt interviewed and examined Ancillary studies reviewed I agree with plan as outlined by Midlevel Provider *DC/Admit/Observation/Transfer Diagnosis at time of Disposition: Pelvic pain - Discharge Dispostion Disposition: HOME Condition at time of disposition: Improved - Referrals Referrals: Tatyana Martínez MD [Staff Physician] - (Call Thursday) - Patient Instructions Printed Discharge Instructions: DI for Pelvic Pain Additional Instructions: Discharge Instructions: -Your labs, urinalysis and ultrasound were all normal -You are not -Please drink plenty of fluids at home -You can take over the counter tylenol every 4 hours for pain -Please follow up with your energy conservation director or Dr. Martínez on Thursday - Post Discharge Activity
[2018-09-15 09:12] VITALS: BMI 23.0
[2018-09-15] MEDS ORDERED: ACETAMINOPHEN 1000 MG/100 ML VIAL (NON FORMULARY) IVPB ONE (09:22)
--- NOTE | 2018-09-15 09:22 | PDOC ---
History of Present Illness - General Chief Complaint: Pain Stated Complaint: Pain Time Seen by Provider: 09/15/18 09:00 History Source: Patient Exam Limitations: No Limitations - History of Present Illness Initial Comments: CHIEF COMPLAINT: 27 y/o afebrile female, [id number], approximately 8 week female with LMP 07/20/18 c/o sharp lower abdominal pain since this morning. HISTORY OF PRESENT ILLNESS: The patient states the pain is across her entire lower abdomen. She denies f/c, n/v/d, CP, SOB, hematuria, dysuria, vaginal bleeding/discharge. She has not seen her ANTICHECKING IRON WORKER yet for this . She has not taken anything for pain. Vital signs on arrival are within normal limits. REVIEW OF SYSTEMS: GENERAL/CONSTITUTIONAL: No fever/chills. No weakness. No weight change. HEAD, EYES, EARS, NOSE AND THROAT: No change in vision. No ear pain or discharge. No sore throat. CARDIOVASCULAR: No chest pain or shortness of breath. RESPIRATORY: No cough, wheezing, or hemoptysis. GASTROINTESTINAL: +lower abdominal pain. No vomiting, diarrhea. GENITOURINARY: No dysuria, frequency, or change in urination. No vaginal bleeding or discharge. MUSCULOSKELETAL: No joint or muscle swelling or pain. No neck or back pain. SKIN: No rash or easy bruising. NEUROLOGIC: No headache, vertigo, loss of consciousness, or loss of sensation. PHYSICAL EXAM: GENERAL: The patient is awake, alert, and fully oriented, in no acute distress. HEAD: Normal with no signs of trauma. ENT: Pupils equal, round and reactive to light, extraocular movements intact, sclera anicteric, conjunctiva clear. Neck supple. LUNGS: Clear to auscultation bilaterally. Normal excursion. No respiratory distress or use of accessory muscles. CV: RRR, S1/S2, no MRG. Cap refill < 2 sec. ABDOMEN: Soft, non-distended, TTP of entire lower abdomen, no hepatomegaly or splenomegaly, no masses. Passive guarding. No rebound TTP. Negative rovsings and obturator signs. BACK: No CVA TTP b/l VAGINAL: DEFERRED EXTREMITIES: Normal range of motion, no edema. NEUROLOGICAL: Normal speech, normal gait. CN II-XII grossly intact. PSYCH: Normal mood, normal affect. SKIN: Warm, dry, normal turgor, no rashes or lesions noted. Past History - Past Medical History Allergies/Adverse Reactions: Allergies Allergy/AdvReac Type Severity Reaction Status Date / Time NSAIDS (Non-Steroidal Allergy Severe Swelling Verified 09/15/18 09:09 Anti-Inflamma ibuprofen [From Motrin] Allergy Verified 09/15/18 09:09 ketorolac [From Toradol] Allergy Verified 09/15/18 09:09 tramadol Allergy Verified 09/15/18 09:09 Home Medications: Ambulatory Orders Levetiracetam [Keppra] 1,250 mg PO BID 06/09/18 Asthma: No Cancer: No Cardiac Disorders: No COPD: No Diabetes: No Disorders: Yes (REOCCURENT UTI) HTN: No Seizures: Yes Thyroid Disease: No - Reproductive History (#): 3 Para: 1 Cervical CA: No Dysfunctional Uterine Bleeding: No Ectopic : No Endometrial CA: No Polycystic Ovaries: No Therapeutic (s) & number: Yes (1) Tubal Ligation: No Spontaneous : 0 - Immunization History Td Vaccination: Yes TDAP Vaccination: Yes Immunization Up to Date: Yes - Suicide/Smoking/Psychosocial Hx Smoking Status: Yes Smoking History: Former smoker Have you smoked in the past 12 months: Yes Number of Cigarettes Smoked Daily: 5 If you are a former smoker, when did you quit?: 60 DAYS AGO Information on smoking cessation initiated: No 'Breaking Loose' booklet given: 01/21/14 Hx Alcohol Use: No Drug/Substance Use Hx: No Substance Use Type: None, Marijuana Hx Substance Use Treatment: No *Physical Exam - Vital Signs Last Vital Signs Temp Pulse Resp BP Pulse Ox 98.2 F 92 H 20 110/49 L 100 09/15/18 09:09 09/15/18 09:09 09/15/18 09:09 09/15/18 09:09 09/15/18 09:09 ED Treatment Course - LABORATORY CBC & Chemistry Diagram: 09/15/18 09:13 09/15/18 09:13 Medical Decision Making - Medical Decision Making A/P: 27 y/o approximately 8 week female c/o intermittent lower abdominal pain. She has a history of cysts and abnormal periods. Plan is as follows: 1. Labs 2. UA/culture 3. Beta 4. Transvaginal ultrasound 5. IV fluids 6. IV tylenol Labs unremarkable UA negative patient is negative for patient still in pain Will give 1 percocet as she is allergic to tramadol and NSAIDs Transvaginal Ultrasound IMPRESSION: retroverted uterus with normal thickness of the endometrial stripe. Both ovaries appear unremarkable with multiple small simple cysts/follicles and normal vasuclar flow. Gave patient all of the results. She states she does feel better. Suggested plenty of fluids and tylenol at home with ANTICHECKING IRON WORKER follow up. The patient is in agreement and wants to go home. The patient verbalizes understanding of all instructions, has no further questions and is awaiting discharge. *DC/Admit/Observation/Transfer Diagnosis at time of Disposition: Pelvic pain - Discharge Dispostion Disposition: HOME Condition at time of disposition: Improved - Referrals Referrals: Tatyana Martínez MD [Staff Physician] - (Call Thursday) - Patient Instructions Printed Discharge Instructions: DI for Pelvic Pain Additional Instructions: Discharge Instructions: -Your labs, urinalysis and ultrasound were all normal -You are not -Please drink plenty of fluids at home -You can take over the counter tylenol every 4 hours for pain -Please follow up with your ball maker or Dr. Martínez on Thursday - Post Discharge Activity
[2018-09-15] MEDS ORDERED: ACETAMINOPHEN INJECTION 100 ML IVPB ONE (09:25)
[2018-09-15 09:34] LABS: BASO % 0.6 % (0-2.0); EOS % 0.5 % (0-4.5); HEMATOCRIT 39.6 % (32.4-45.2); HEMOGLOBIN 12.8 GM/dL (10.7-15.3); LYMPH % 35.5 % (8-40); MCH 28.5 pg (25.7-33.7); MCHC 32.3 g/dl (32.0-36.0); MEAN CELL VOLUME 88.2 fl (80-96); MEAN PLT VOLUME 8.5 fl (7.5-11.1); MONO % 11.6 % (3.8-10.2); NEUT % 51.8 % (42.8-82.8); PLATELET COUNT 247 K/MM3 (134-434); RBC 4.49 M/mm3 (3.60-5.2); RDW 13.4 % (11.6-15.6)
[2018-09-15 10:06] LABS: URINE APPEARANCE CLOUDY; URINE BILIRUBIN NEGATIVE (<2.0 mg/dL); URINE COLOR YELLOW; URINE GLUCOSE (UA) NEGATIVE (NEGATIVE); URINE KETONE NEGATIVE (NEGATIVE); URINE LEUK ESTERASE NEGATIVE (NEGATIVE); URINE NITRITE NEGATIVE (NEGATIVE); URINE PROTEIN 1+ (NEGATIVE); URINE UROBILINOGEN NEGATIVE mg/dL (0.2-1.0)
[2018-09-15 10:08] LABS: ALBUMIN 3.6 g/dl (3.4-5.0); ALK PHOS 53 U/L (45-117); ANION GAP 6 MMOL/L (8-16); BILIRUBIN,TOTAL 0.6 mg/dL (0.2-1); BLOOD UREA NITROGEN 13 mg/dL (7-18); CHLORIDE 107 mmol/L (98-107); CO2 26 mmol/L (21-32); CREATININE 0.8 mg/dL (0.55-1.3); GLUCOSE,RANDOM 92 mg/dL (74-106); POTASSIUM 4.2 mmol/L (3.5-5.1); SGOT/AST 16 U/L (15-37); SGPT/ALT 13 U/L (13-61); SODIUM 139 mmol/L (136-145); TOT PROT 7.4 g/dl (6.4-8.2)
[2018-09-15 10:30] LABS: EPI CELLS MANY /HPF (FEW); URINE BACTERIA RARE /hpf (NONE SEEN); URINE MUCUS RARE
[2018-09-15 14:08] VITALS: BP 106/63; PULSE 76; TEMP 98.7
== END 2018-09-15 14:08 | disposition home or self-care (01) ==
LOC: JER 08:53
PROC: 3E0337Z Introduction of Electrolytic and Water Balance Substance into Peripheral Vein, Percutaneous Approach (ICD-10-PCS; principal; 2018-09-15)
PROC: 3E033NZ Introduction of Analgesics, Hypnotics, Sedatives into Peripheral Vein, Percutaneous Approach (ICD-10-PCS; 2018-09-15)
DX: O26.891 Other specified pregnancy related conditions, first trimester (principal); R10.2 Pelvic and perineal pain; Z3A.08 8 weeks gestation of pregnancy
CPT/HCPCS: 36415; 76830-TC; 80053; 81003; 81015; 84702; 85025; 87086; 99283-25; J0131; J7030

== ENCOUNTER 2018-10-01 19:18 | Emergency (ER) | payer OTHER ==
[2018-10-01 19:23] VITALS: BMI 26.5
[2018-10-01] MEDS ORDERED: SODIUM CHLORIDE 1,000 ML IV STA (19:53)
[2018-10-01 20:34] LABS: BASO % 0.2 % (0-2.0); HEMATOCRIT 39.7 % (32.4-45.2); HEMOGLOBIN 13.7 GM/dL (10.7-15.3); LYMPH % 13.9 % (8-40); MCH 29.9 pg (25.7-33.7); MCHC 34.5 g/dl (32.0-36.0); MEAN CELL VOLUME 86.5 fl (80-96); MEAN PLT VOLUME 8.9 fl (7.5-11.1); MONO % 5.7 % (3.8-10.2); NEUT % 80.2 % (42.8-82.8); PLATELET COUNT 254 K/MM3 (134-434); RBC 4.59 M/mm3 (3.60-5.2); RDW 13.7 % (11.6-15.6); WHITE BLOOD COUNT 10.2 K/mm3 (4.0-10.0)
--- NOTE | 2018-10-01 20:52 | PDOC ---
History of Present Illness - General Chief Complaint: Overdose Stated Complaint: OVERDOSE Time Seen by Provider: 10/01/18 19:25 - History of Present Illness Initial Comments: 10/01/18 20:47 28 yo F with h/o depression who p/w trazadone overdose. Patient and patient daughter at bedside report that patient with convulsions following unintentional overdose of Trazadone ( x 4-5 pills), this evening. Patient states that she was attempting to go to sleep, but had difficulty and increased her dose of Trazadone. Shortly after patient reports SOB, chest tightness, lightheadedness, nausea with bilious, non bloody vomitting. her sister reports she left the patient and returned to the room, and witnessed her on the floor with whole body convulsions, and eyes rolling backwards in head lasting for 2-3 minutes. EMS arrived and noted patient on floor.Vitals at that time wnl. Patient does not recall head trauma, but denies head/neck/back pain. Denies SI, HI, prior SI attempt. Patient denies N/V, vision change, Palpitations, cough, wheezing, leg pain/ swelling, F,C, CP, SOB, urinary complaints, abdominal pain, diarrhea, constipation, lightheadedness, weakness, sensory changes. PMHx: as noted above ROS: as noted SHx: Denies recreational drug use. + tobacco use. Denies Etoh. Allergies: NKDA Past History - Past Medical History Allergies/Adverse Reactions: Allergies Allergy/AdvReac Type Severity Reaction Status Date / Time NSAIDS (Non-Steroidal Allergy Severe Swelling Verified 09/15/18 09:09 Anti-Inflamma ibuprofen [From Motrin] Allergy Verified 09/15/18 09:09 ketorolac [From Toradol] Allergy Verified 09/15/18 09:09 tramadol Allergy Verified 09/15/18 09:09 Home Medications: Ambulatory Orders Levetiracetam [Keppra] 500 mg PO BID 06/09/18 traZODone HCL [Trazodone HCl] 200 mg PO HS 10/01/18 Asthma: No Cancer: No Cardiac Disorders: No COPD: No Diabetes: No Disorders: Yes (REOCCURENT UTI) HTN: No Seizures: Yes Thyroid Disease: No - Reproductive History (#): 3 Para: 1 Cervical CA: No Dysfunctional Uterine Bleeding: No Ectopic : No Endometrial CA: No Polycystic Ovaries: No Therapeutic (s) & number: Yes (1) Tubal Ligation: No Spontaneous : 0 - Immunization History Td Vaccination: Yes TDAP Vaccination: Yes Immunization Up to Date: Yes - Suicide/Smoking/Psychosocial Hx Smoking Status: Yes Smoking History: Never smoked Have you smoked in the past 12 months: Yes Number of Cigarettes Smoked Daily: 5 If you are a former smoker, when did you quit?: 60 DAYS AGO 'Breaking Loose' booklet given: 01/21/14 Hx Alcohol Use: No Drug/Substance Use Hx: No Substance Use Type: None, Marijuana Hx Substance Use Treatment: No Review of Systems - Review of Systems Comments:: 10/01/18 20:55 GENERAL/CONSTITUTIONAL: No fever or chills. No weakness. HEAD, EYES, EARS, NOSE AND THROAT: No change in vision. No ear pain or discharge. No sore throat. CARDIOVASCULAR: No chest pain or shortness of breath RESPIRATORY: No cough, wheezing, or hemoptysis. GASTROINTESTINAL: No nausea, vomiting, diarrhea or constipation. GENITOURINARY: No dysuria, frequency, or change in urination. MUSCULOSKELETAL: No joint or muscle swelling or pain. No neck or back pain. SKIN: No rash NEUROLOGIC:+ Lighteadedness. No headache, vertigo, loss of consciousness, or change in strength/sensation. ENDOCRINE: No increased thirst. No abnormal weight change HEMATOLOGIC/LYMPHATIC: No anemia, easy bleeding, or history of blood clots. ALLERGIC/IMMUNOLOGIC: No hives or skin allergy. *Physical Exam - Vital Signs Last Vital Signs Temp Pulse Resp BP Pulse Ox 98.6 F 84 18 109/69 100 10/01/18 19:21 10/01/18 19:21 10/01/18 19:21 10/01/18 19:21 10/01/18 19:21 - Physical Exam Comments: 10/01/18 20:55 GENERAL: Awake, alert, and fully oriented, in no acute distress HEAD: No signs of trauma, normocephalic, atraumatic EYES: PERRLA, EOMI, sclera anicteric, conjunctiva clear ENT: Auricles normal inspection, hearing grossly normal, nares patent, oropharynx clear without exudates. Moist mucosa NECK: Normal ROM, supple, no lymphadenopathy, JVD, or masses LUNGS: No distress, speaks full sentences, clear to auscultation bilaterally HEART: Regular rate and rhythm, normal S1 and S2, no murmurs, rubs or gallops, peripheral pulses normal and equal bilaterally. ABDOMEN: Soft, nontender, normoactive bowel sounds. No guarding, no rebound. No masses EXTREMITIES : Normal inspection, Normal range of motion, no edema. No clubbing or cyanosis. NEUROLOGICAL: Cranial nerves II through XII grossly intact. Normal speech, normal gait, no focal sensorimotor deficits SKIN: Warm, Dry, normal turgor, no rashes or lesions noted Moderate Sedation - Procedure Monitoring Vital Signs: Procedure Monitoring Vital Signs Temperature 98.6 F 10/01/18 19:21 Pulse Rate 84 10/01/18 19:21 Respiratory Rate 18 10/01/18 19:21 Blood Pressure 109/69 10/01/18 19:21 O2 Sat by Pulse Oximetry (%) 100 10/01/18 19:21 ED Treatment Course - LABORATORY CBC & Chemistry Diagram: 10/01/18 20:00 10/01/18 20:00 - ADDITIONAL ORDERS Additional order review: 10/01/18 20:00 RBC 4.59 MCV 86.5 MCHC 34.5 RDW 13.7 MPV 8.9 Neutrophils % 80.2 D Lymphocytes % 13.9 D Monocytes % 5.7 Eosinophils % 0.0 D Basophils % 0.2 Medical Decision Making - Medical Decision Making 10/01/18 21:01 28 yo F with h/o depression who p/w unintentional Trazadone overdose, nasuea, and lightheadedness. VSS, AF, A&OX3. Physical exam unremarkable. Pt. denies SI, HI. No plan at self harm. No h/o SI or prior attempts. Will evaluate for cardiac dysarrythmais, electrolyte abnml, metabolic and toxic derangements, hypoglycemia. No evidence of closed head injury, or neuro deficits on physical exam. ED Course 10/01/18 21:28 CBC, CMP: Unremarkable 10/01/18 21:53 EKG: NSR with absent DUGLAS, STD. Normal interval duration and axis. Per poison control center [phone] 10/01/18 21:58 Per poison control s/s with benzodiazapene and supportive care as needed. 10/01/18 23:08 Tylenol, APAP: Unremarkable 10/02/18 00:26 Patient seizure free in ED, ambulating w/out difficulty, with transportation available Patient stable for d/c with return precautions. Advised to f/u with PMD. i *DC/Admit/Observation/Transfer Diagnosis at time of Disposition: Overdose of trazodone - Discharge Dispostion Condition at time of disposition: Stable Decision to Admit order: No - Referrals - Patient Instructions Printed Discharge Instructions: DI for Drug Overdose in Adults Additional Instructions: Please return to the emergency department with any new or worsening symptoms or concerns. Please follow up with your primary care physician within 72 hours. - Post Discharge Activity - Attestations Physician Attestion: 10/01/18 21:29 I attest to the information provided in this note.
--- NOTE | 2018-10-01 20:54 | PDOC ---
Attending Attestation - HPI HPI: This is a 28 year old female with PMHx of depression,seizures, and hemorrhagic ovarian cyst who presents s/p ingestion of medication. Patient states that she took 4-5 of her trazodone because she was having difficulty sleeping. She states that she called her friend to come over because she wasnt feeling right . She states that she last slept 2 days ago . Today she states she vomited once earlier after taking the trazodone but hasnt vomited since. 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 LMP - unable to recall, she states that her menses is irregular however. Denies recent fever Social Hx: Smokes 3 cigs/day. Reports occasional marijuana use. Denies EtOH use. 10/01/18 21:14 - Physicial Exam PE: GENERAL: Awake, alert, and fully oriented, in no acute distress. Lethargic. HEAD: No signs of trauma EYES: PERRLA, EOMI, sclera anicteric, conjunctiva clear ENT: Auricles normal inspection, hearing grossly normal, nares patent, oropharynx clear without exudates. Moist mucosa NECK: Normal ROM, supple, no lymphadenopathy, JVD, or masses LUNGS: Breath sounds equal, clear to auscultation bilaterally. No wheezes, and no crackles HEART: Regular rate and rhythm, normal S1 and S2, no murmurs, rubs or gallops ABDOMEN: Soft, nontender, normoactive bowel sounds. No guarding, no rebound. No masses EXTREMITIES: Normal range of motion, no edema. No clubbing or cyanosis. No cords, erythema, or tenderness NEUROLOGICAL: Cranial nerves II through XII grossly intact. Normal speech, normal gait SKIN: Warm, Dry, normal turgor, no rashes or lesions noted. 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 States that she sometimes works 5 shifts per week. She also takes a class, continuing education - pt doesn't specify what. Pt has no fever and no chills. She has not eaten today. She was having difficulty sleeping and took 4-5 trazodones to help herself sleep. In the past she has never taken more than 3 trazodones. She denies suicidial ideation and she denies alcohol, tylenol or asa use. SHe is allergic to NSAIDS. Pt smokes 3 cigs per day as well as weed. She doesn't use any other drugs. 10/01/18 21:09 Irreg menses; she doesn't think she is . We are awaiting UA/UCG 10/01/18 22:57 We spoke to [facility], and they recommend watching the patient for a pprox 4 hrs for EKG changes, QT rpolongation etc. 10/01/18 22:58 CBC and chem normal; acetaminophen and salicylate levels normal. 10/02/18 01:29 Pt is stable and comfotable. Still awaiting UTOX results 10/02/18 03:12 Pt is positive for ecstasy and marijuana. Otherwise alert and awake and feeling better; stable to go home. <Gabriela Valencia - Last Filed: 10/02/18 03:12> Heart Score/ECG Review - ECG Intrepretation Rhythm: Regular Rhythm - Freedom Freedom: Normal - P and HI Delta Wave(s) Present: No WPW: No - QRS Poor R Wave Progression: No Q Wave Present: No - ST and T Early Repolarization: No Non Specific ST-T Wave changes: No - ECG Impressions Normal ECG: Yes Non-specific ST Elevation: No Ischemic Changes: No Bradycardia: No Torsades inés Pointes: No WPW: No <Gabriela Valencia - Last Filed: 10/02/18 03:12>
[2018-10-01 21:19] LABS: ALBUMIN 4.1 g/dl (3.4-5.0); ALK PHOS 60 U/L (45-117); ANION GAP 10 MMOL/L (8-16); BILIRUBIN,TOTAL 0.2 mg/dL (0.2-1); BLOOD UREA NITROGEN 17 mg/dL (7-18); CALCIUM 8.9 mg/dL (8.5-10.1); CHLORIDE 105 mmol/L (98-107); CO2 24 mmol/L (21-32); CREATININE 0.9 mg/dL (0.55-1.3); GLUCOSE,RANDOM 83 mg/dL (74-106); POTASSIUM 3.7 mmol/L (3.5-5.1); SGOT/AST 17 U/L (15-37); SGPT/ALT 13 U/L (13-61); SODIUM 139 mmol/L (136-145); TOT PROT 7.9 g/dl (6.4-8.2)
[2018-10-01 23:03] LABS: URINE APPEARANCE CLOUDY; URINE BILIRUBIN NEGATIVE (<2.0 mg/dL); URINE COLOR YELLOW; URINE GLUCOSE (UA) NEGATIVE (NEGATIVE); URINE KETONE 1+ (NEGATIVE); URINE LEUK ESTERASE TRACE (NEGATIVE); URINE NITRITE NEGATIVE (NEGATIVE); URINE PROTEIN 1+ (NEGATIVE); URINE UROBILINOGEN NEGATIVE mg/dL (0.2-1.0)
[2018-10-01 23:04] LABS: HCG,QUALITATIVE URINE Negative
[2018-10-01] MEDS ORDERED: ONDANSETRON 4 MG/2 ML VIAL IVPB ONE (23:09)
[2018-10-01] MEDS ORDERED: ONDANSETRON 4 MG/2 ML VIAL ONE (23:11)
[2018-10-01 23:26] LABS: EPI CELLS MODERATE /HPF (FEW); URINE BACTERIA RARE /hpf (NONE SEEN); URINE MUCUS MANY
[2018-10-02 02:10] LABS: COCAINE, UR NEGATIVE ng/ml (CUTOFF=300); METHADONE, UR NEGATIVE ng/ml (CUTOFF=300); OPIATES, URI NEGATIVE ng/ml (CUTOFF=300); PHENCYCLIDINE,URINE NEGATIVE ng/ml (CUTOFF=25); URINE AMPHETAMINES NEGATIVE ng/ml (CUTOFF=500); URINE BARBITURATES NEGATIVE ng/ml (CUTOFF=200); URINE BENZODIAZEPINES NEGATIVE ng/ml (CUTOFF=200)
[2018-10-02 03:12] VITALS: BP 110/78; PULSE 88; TEMP 98.5
--- NOTE | 2018-10-02 21:22 | EKG ---
Test Reason : Blood Pressure : / mmHG Vent. Rate : 073 BPM Atrial Rate : 073 BPM P-R Int : 150 ms QRS Dur : 074 ms QT Int : 388 ms P-R-T Axes : 064 061 048 degrees QTc Int : 427 ms NORMAL SINUS RHYTHM WITH SINUS ARRHYTHMIA NORMAL ECG WHEN COMPARED WITH ECG OF 19-MAY-2018 15:13, NO SIGNIFICANT CHANGE WAS FOUND Confirmed by CHRISTIAN BERGER MD ([id number]) on 10/02/2018 9:22:21 PM Referred By: Confirmed By:CHRISTIAN BERGER MD
== END 2018-10-02 03:11 | disposition left against medical advice (07) ==
LOC: JER 19:18
PROC: 3E0337Z Introduction of Electrolytic and Water Balance Substance into Peripheral Vein, Percutaneous Approach (ICD-10-PCS; principal; 2018-10-01)
PROC: 3E033GC Introduction of Other Therapeutic Substance into Peripheral Vein, Percutaneous Approach (ICD-10-PCS; 2018-10-01)
DX: T43.211A Poisoning by selective serotonin and norepinephrine reuptake inhibitors, accidental (unintentional), initial encounter (principal); R11.10 Vomiting, unspecified; R07.9 Chest pain, unspecified; Y92.032 Bedroom in apartment as the place of occurrence of the external cause; F32.9 Major depressive disorder, single episode, unspecified; G40.909 Epilepsy, unspecified, not intractable, without status epilepticus
CPT/HCPCS: 36415; 80053; 80307; 81003; 81015; 84703; 85025; 93005; 93010; 96361; 96374; 99283-25; G0480; J7030

== ENCOUNTER 2018-10-29 21:41 | Emergency (ER) | payer OTHER ==
[2018-10-29 21:50] VITALS: BP 104/63; PULSE 83; TEMP 98; BMI 23.0
--- NOTE | 2018-10-29 21:51 | PDOC ---
Rapid Medical Evaluation Chief Complaint: Headache Time Seen by Provider: 10/29/18 21:49 Medical Evaluation: Allergies Allergy/AdvReac Type Severity Reaction Status Date / Time NSAIDS (Non-Steroidal Allergy Severe Swelling Verified 10/29/18 21:47 Anti-Inflamma ibuprofen [From Motrin] Allergy Verified 10/29/18 21:47 ketorolac [From Toradol] Allergy Verified 10/29/18 21:47 tramadol Allergy Verified 10/29/18 21:47 Vital Signs Temp Pulse Resp BP Pulse Ox 98 F 83 18 104/63 100 10/29/18 21:48 10/29/18 21:48 10/29/18 21:48 10/29/18 21:48 10/29/18 21:48 10/29/18 21:50 I have performed a brief in-person evaluation of this patient. The patient presents with a chief complaint of: headache worse w/ light and sound. H/o similar pain in past. H/o seizure, polysubstance abuse Pertinent physical exam findings:stable I have ordered the following:nothing The patient will proceed to the ED for further evaluation. Discharge Disposition - Diagnosis Head ache Qualifiers: Headache type: unspecified Headache chronicity pattern: unspecified pattern Intractability: intractable Qualified Code(s): R51 - Headache - Referrals - Patient Instructions - Post Discharge Activity
--- NOTE | 2018-10-29 22:07 | PDOC ---
History of Present Illness - General Chief Complaint: Headache Stated Complaint: HEADACHE,CHEST PAIN Time Seen by Provider: 10/29/18 21:49 History Source: Patient Exam Limitations: No Limitations - History of Present Illness Initial Comments: 10/29/18 22:21 28 year old female with PMH migraines, seizure disorder presented to ED for headache x3 days associated with rhinorrhea, nasal congestion, nonproductive cough, fever (yesterday and day before, not today), chest tightness. She stated her headache is located to her forehead and behind her eyes, nonradiating, constant, aggravated by light and sound, alleviated by dark and quiet. Pt stated this feels like her regular migrines, but that usually she it will resolve with tylenol use. Pt stated she has been taking Tylenol the last 3 days without relief of pain. Pt stated fever subsided today. Pt denied nausea, vomiting, diarrhea, abdominal pain, shortness of breath, sputum production. Pt stated she took 4000 mg Tylenol today, last dose was 1000 mg x2 hours ago. Past History - Past Medical History Allergies/Adverse Reactions: Allergies Allergy/AdvReac Type Severity Reaction Status Date / Time NSAIDS (Non-Steroidal Allergy Severe Swelling Verified 10/29/18 23:36 Anti-Inflamma ibuprofen [From Motrin] Allergy Verified 10/29/18 23:36 ketorolac [From Toradol] Allergy Verified 10/29/18 23:36 tramadol Allergy Verified 10/29/18 23:36 Home Medications: Ambulatory Orders Levetiracetam [Keppra] 500 mg PO BID 06/09/18 traZODone HCL [Trazodone HCl] 200 mg PO HS 10/01/18 Diphenhydramine HCl [Benadryl -] 25 mg PO Q8H #6 capsule 10/30/18 Metoclopramide HCl [Reglan -] 10 mg PO TID #6 tablet 10/30/18 Asthma: No Cancer: No Cardiac Disorders: No COPD: No Diabetes: No Disorders: Yes (REOCCURENT UTI) HTN: No Seizures: Yes Thyroid Disease: No - Reproductive History (#): 3 Para: 1 Cervical CA: No Dysfunctional Uterine Bleeding: No Ectopic : No Endometrial CA: No Polycystic Ovaries: No Therapeutic (s) & number: Yes (1) Tubal Ligation: No Spontaneous : 0 - Immunization History Td Vaccination: Yes TDAP Vaccination: Yes Immunization Up to Date: Yes - Suicide/Smoking/Psychosocial Hx Smoking Status: Yes Smoking History: Current every day smoker Have you smoked in the past 12 months: Yes Number of Cigarettes Smoked Daily: 2 If you are a former smoker, when did you quit?: 60 DAYS AGO Information on smoking cessation initiated: No 'Breaking Loose' booklet given: 01/21/14 Hx Alcohol Use: No Drug/Substance Use Hx: No Substance Use Type: None, Marijuana Hx Substance Use Treatment: No Review of Systems - Review of Systems Able to Perform ROS?: Yes Comments:: 10/29/18 22:20 General: admitted to fever, chills, sweats, generalized weakness. HEENT: admitted to nasal congestion, rhinorrhea. denied sore throat, ear pain. Heart: admitted to chest tightness. denied chest pain, palpitations, syncope, lower extremity swelling, diaphoresis. Respiratory: admitted to cough. denied shortness of breath, sputum production, hemoptysis. Abdomen: denied abdominal pain, nausea, vomiting, diarrhea, constipation, blood in stool. : denied dysuria, increased urinary frequency, hematuria, urinary incontinence , flank pain. Back: denied back pain. Musculoskeletal: denied joint pain, muscle pain, joint swelling. Neurological: admitted to headache. denied dizziness, numbness, tingling, weakness. Skin: denied rash, laceration, abrasion. *Physical Exam - Vital Signs Last Vital Signs Temp Pulse Resp BP Pulse Ox 98 F 83 18 104/63 100 10/29/18 21:48 10/29/18 21:48 10/29/18 21:48 10/29/18 21:48 10/29/18 21:48 - Physical Exam Comments: 10/29/18 22:19 Constitutional: Well-nourished, Well-developed, appearing stated age. HEENT: head is normocephalic, atraumatic. tenderness over frontal sinus. EOMI. PERRLA. left eye exotropia. no posterior pharnygeal erythema. no tonsillar swelling. no tonsillar exudates. Neck: supple. Full ROM. no nuchal rigidity. Heart: regular rhythm. no murmurs, rubs or gallops. Lungs: clear to auscultation bilaterally. no crackles, rhonchi or wheezing. no stridor. Abdomen: soft, nontender. normal bowel sounds. no rebound, guarding, masses. Extremities: Peripheral pulses intact. No lower extremity edema. Neurological: Alert. Oriented x3. CN2-12 intact. 5/5 strength all extremities. Full sensation all extremities and bilateral face. Kernig and Brudinsky negative. Psych: awake, alert, oriented x3. Follows commands. Answers questions appropriately. Moderate Sedation - Procedure Monitoring Vital Signs: Procedure Monitoring Vital Signs Temperature 98 F 10/29/18 21:48 Pulse Rate 83 10/29/18 21:48 Respiratory Rate 18 10/29/18 21:48 Blood Pressure 104/63 10/29/18 21:48 O2 Sat by Pulse Oximetry (%) 100 10/29/18 21:48 ED Treatment Course - LABORATORY CBC & Chemistry Diagram: 10/29/18 10:27 10/29/18 10:27 Medical Decision Making - Medical Decision Making 10/29/18 22:25 28 year old female with above PMH presented to ED for evaluation of headache associated with URI symptoms and body aches. Initial Vital Signs Temp Pulse Resp BP Pulse Ox 98 F 83 18 104/63 100 10/29/18 21:48 10/29/18 21:48 10/29/18 21:48 10/29/18 21:48 10/29/18 21:48 Afebrile. No tachycardia. No tachypnea. Normal BP for age. No hypoxia on room air. Labs ordered: influenza testing, CBC, CMP, acetaminophen level Imaging ordered: none Medications ordered: tylenol, reglan, benadryl, normal saline 1000 cc bolus, decadron 10 mg IV EKG performed at 0048: rate, regular rhythm, normal axis, normal intervals, nonspecific ST changes. 10/29/18 22:58 Influenza testing negative. 10/29/18 23:28 CBC WBC 6.9 K/mm3 (4.0-10.0) 10/29/18 10:27 RBC 4.59 M/mm3 (3.60-5.2) 10/29/18 10:27 Hgb 13.6 GM/dL (10.7-15.3) 10/29/18 10:27 Hct 39.7 % (32.4-45.2) 10/29/18 10:27 MCV 86.5 fl (80-96) 10/29/18 10:27 MCH 29.6 pg (25.7-33.7) 10/29/18 10:27 MCHC 34.2 g/dl (32.0-36.0) 10/29/18 10:27 RDW 13.9 % (11.6-15.6) 10/29/18 10:27 Plt Count 242 K/MM3 (134-434) 10/29/18 10:27 MPV 8.5 fl (7.5-11.1) 10/29/18 10:27 Absolute Neuts (auto) 3.2 K/mm3 (1.5-8.0) 10/29/18 10:27 Neutrophils % 47.1 % (42.8-82.8) D 10/29/18 10:27 Lymphocytes % 42.6 % (8-40) H D 10/29/18 10:27 Monocytes % 9.4 % (3.8-10.2) 10/29/18 10:27 Eosinophils % 0.4 % (0-4.5) D 10/29/18 10:27 Basophils % 0.5 % (0-2.0) 10/29/18 10:27 Nucleated RBC % 0 % (0-0) 10/29/18 10:27 No leukocytosis. Mild lymphocyte predominance. CMP Sodium 140 mmol/L (136-145) 10/29/18 10:27 Potassium 4.8 mmol/L (3.5-5.1) 10/29/18 10:27 Chloride 108 mmol/L (98-107) H 10/29/18 10:27 Carbon Dioxide 28 mmol/L (21-32) 10/29/18 10:27 Anion Gap 4 MMOL/L (8-16) L 10/29/18 10:27 BUN 12 mg/dL (7-18) 10/29/18 10:27 Creatinine 0.9 mg/dL (0.55-1.3) 10/29/18 10:27 Creat Clearance w eGFR > 60 (>60) 10/29/18 10:27 Random Glucose 91 mg/dL (74-106) 10/29/18 10:27 Calcium 8.6 mg/dL (8.5-10.1) 10/29/18 10:27 Total Bilirubin 0.1 mg/dL (0.2-1) L 10/29/18 10:27 AST 16 U/L (15-37) 10/29/18 10:27 ALT 13 U/L (13-61) 10/29/18 10:27 Alkaline Phosphatase 52 U/L (45-117) 10/29/18 10:27 Total Protein 6.7 g/dl (6.4-8.2) 10/29/18 10:27 Albumin 3.3 g/dl (3.4-5.0) L 10/29/18 10:27 Serum , Qual Negative 10/29/18 10:27 Normal electrolytes. No SHERITA. No transaminitis. Serum testing negative. Serum acetaminophen level 9.6. Pt likely has URI exacerbating migraine disorder. Lymphocyte predominance suggests viral illness. No tylenol overdose. No transaminitis. Will continue to monitor and control pain. 10/30/18 00:00 Pt reassessed, sleeping comfortably. 10/30/18 01:51 CXR my read: sharp costophrenic angles. no infiltrate. no cardiomegaly. no large pneumothorax. - Pending official read. Pt reported improvement of headache. Pt to be discharged. 11/01/18 09:14 Official CXR report: no acute pathology *DC/Admit/Observation/Transfer Diagnosis at time of Disposition: Head ache Qualifiers: Headache type: unspecified Headache chronicity pattern: unspecified pattern Intractability: intractable Qualified Code(s): R51 - Headache - Discharge Dispostion Disposition: HOME Condition at time of disposition: Improved Decision to Admit order: No - Prescriptions Prescriptions: Diphenhydramine HCl [Benadryl -] 25 mg PO Q8H #6 capsule Metoclopramide HCl [Reglan -] 10 mg PO TID #6 tablet - Referrals Referrals: Jacob Ortiz MD [Primary Care Provider] - - Patient Instructions Additional Instructions: You were seen today for a headache. You likely have a viral sinus infection. This will resolve on its own in a few days. You do not need antibiotics unless symptoms last >10 days. Your lab work was normal. Your flu testing was negative. Do not take Tylenol. Drink lots of clear fluids, like water, to stay hydrated. Follow up with your primary care doctor in 1-2 days. I have sent a prescription for reglan and benadryl to your pharmacy. Take as advised on labels. Return to the Emergency Department for neck stiffness, increasing pain, weakness, numbness, fever>102F, fever>5 days or any other new, worsening or concerning symptoms. - Post Discharge Activity
[2018-10-29] MEDS ORDERED: METOCLOPRAMIDE HCL INJECTION 10 MG/2 ML VIAL IVPUSH ONE (22:17)
[2018-10-29] MEDS ORDERED: SODIUM CHLORIDE 1,000 ML IV STA (22:17)
[2018-10-29] MEDS ORDERED: ACETAMINOPHEN 1000 MG/100 ML VIAL (NON FORMULARY) IVPB ONE (22:17)
--- NOTE | 2018-10-29 22:35 | PDOC ---
Attending Attestation - HPI HPI: 10/29/18 22:37 The patient is a 28 year old female with a significant past medical history of migraines, seizure disorder, who presents to the emergency department with complaint of headache, rhinorrhea, nasal congestion, nonproductive cough, fever , and chest tightness for about 3 days. The patient reports taking 4000 mg Tylenol today, last dose was 1000 mg x2 hours ago. The patient denies shortness of breath and dizziness. The patient denies chills , nausea, vomit, diarrhea and constipation. The patient denies dysuria, frequency, urgency and hematuria. Allergies: NSAIDS Documentation prepared by Mehnaz Kenny, acting as medical transcriber for Siddharth De La Cruz MD <Mehnaz Kenny - Last Filed: 10/29/18 22:37> - Resident Resident Name: Gabriela Simpson - ED Attending Attestation I have performed the following: I have examined & evaluated the patient, The case was reviewed & discussed with the resident, I agree w/resident's findings & plan, Exceptions are as noted - Physicial Exam PE: 10/29/18 23:51 Patient is awake and alert, will nourished, in mild distress Normocephalic and atraumatic PERRLA, EOMI, positive photophobia Neck is supple, there is no meningismus, Kernig/Brudzinski and negative CTA RRR No petechial rash, no focal neurological deficits - Medical Decision Making 10/29/18 23:51 Patient is a 28-year-old female with history of chronic migraines who presents with signs and symptoms of acute migraine associated with an upper respiratory infection. In the ER, patient is afebrile, normotensive, with sinus tenderness to percussion and photophobia but without evidence of meningismus. I do not suspect meningitis or subarachnoid hemorrhage at this time. We'll administer Reglan and diphenhydramine IV, will hydrate. We'll obtain CBC/CMP/influenza swab. Will reassess. Likely discharge. <Siddharth De La Cruz - Last Filed: 10/29/18 23:52>
[2018-10-29] MEDS ORDERED: METOCLOPRAMIDE HCL INJECTION 10 MG/2 ML VIAL ONE (22:44)
[2018-10-29 23:05] LABS: BASO % 0.5 % (0-2.0); EOS % 0.4 % (0-4.5); HEMATOCRIT 39.7 % (32.4-45.2); HEMOGLOBIN 13.6 GM/dL (10.7-15.3); LYMPH % 42.6 % (8-40); MCH 29.6 pg (25.7-33.7); MCHC 34.2 g/dl (32.0-36.0); MEAN CELL VOLUME 86.5 fl (80-96); MEAN PLT VOLUME 8.5 fl (7.5-11.1); MONO % 9.4 % (3.8-10.2); NEUT % 47.1 % (42.8-82.8); PLATELET COUNT 242 K/MM3 (134-434); RBC 4.59 M/mm3 (3.60-5.2); RDW 13.9 % (11.6-15.6); WHITE BLOOD COUNT 6.9 K/mm3 (4.0-10.0)
[2018-10-29 23:26] LABS: ALBUMIN 3.3 g/dl (3.4-5.0); ALK PHOS 52 U/L (45-117); ANION GAP 4 MMOL/L (8-16); BILIRUBIN,TOTAL 0.1 mg/dL (0.2-1); BLOOD UREA NITROGEN 12 mg/dL (7-18); CALCIUM 8.6 mg/dL (8.5-10.1); CHLORIDE 108 mmol/L (98-107); CO2 28 mmol/L (21-32); CREATININE 0.9 mg/dL (0.55-1.3); GLUCOSE,RANDOM 91 mg/dL (74-106); POTASSIUM 4.8 mmol/L (3.5-5.1); SGOT/AST 16 U/L (15-37); SGPT/ALT 13 U/L (13-61); SODIUM 140 mmol/L (136-145); TOT PROT 6.7 g/dl (6.4-8.2)
[2018-10-30] MEDS ORDERED: DEXAMETHASONE SOD PHOSPHATE 10 MG/1 ML VIAL IVPUSH ONE (00:32)
[2018-10-30] MEDS ORDERED: DEXAMETHASONE SOD PHOSPHATE 10 MG/1 ML VIAL ONE (00:37)
--- NOTE | 2018-10-30 12:43 | EKG ---
Test Reason : Blood Pressure : / mmHG Vent. Rate : 067 BPM Atrial Rate : 067 BPM P-R Int : 162 ms QRS Dur : 072 ms QT Int : 410 ms P-R-T Axes : 052 067 056 degrees QTc Int : 433 ms NORMAL SINUS RHYTHM ANTEROSEPTAL INFARCT , AGE UNDETERMINED ABNORMAL ECG Confirmed by MD WESLY, ROSALIE ([id number]) on 10/30/2018 12:43:21 PM Referred By: Confirmed By:ROSALIE JARRELL MD
== END 2018-10-30 02:11 | disposition home or self-care (01) ==
LOC: JER 21:41
PROC: 3E0337Z Introduction of Electrolytic and Water Balance Substance into Peripheral Vein, Percutaneous Approach (ICD-10-PCS; principal; 2018-10-29)
PROC: 3E0333Z Introduction of Anti-inflammatory into Peripheral Vein, Percutaneous Approach (ICD-10-PCS; 2018-10-29)
PROC: 3E033GC Introduction of Other Therapeutic Substance into Peripheral Vein, Percutaneous Approach (ICD-10-PCS; 2018-10-29)
PROC: 3E033GC Introduction of Other Therapeutic Substance into Peripheral Vein, Percutaneous Approach (ICD-10-PCS; 2018-10-29)
DX: J06.9 Acute upper respiratory infection, unspecified (principal); R51 Headache; B97.89 Other viral agents as the cause of diseases classified elsewhere; G40.909 Epilepsy, unspecified, not intractable, without status epilepticus
CPT/HCPCS: 36415; 71046-TC-FY; 80053; 80307; 84703; 85025; 87804; 93005; 93010; 99282-25; J1100; J7030

== ENCOUNTER 2018-11-18 09:53 | Emergency (ER) | payer OTHER ==
[2018-11-18] MEDS ORDERED: SODIUM CHLORIDE 1,000 ML IV STA (10:06)
[2018-11-18] MEDS ORDERED: levETIRAcetam 500 MG/5 ML INJECTION VIAL IVPB ONE ×2 (10:06→10:13)
--- NOTE | 2018-11-18 10:08 | PDOC ---
History of Present Illness - General Chief Complaint: Seizure Stated Complaint: SEIZURE Time Seen by Provider: 11/18/18 10:03 History Source: Patient Exam Limitations: Clinical Condition - History of Present Illness Initial Comments: 28 yo F history seizures presents s/p seizure x2 prior to arrival. As per family at bedside, she did not take her keppra this morning, was busy running errands. No recent illness, no fevers. She has been under high stress recently due to family court proceedings. No complaints at present. Past History - Past Medical History Allergies/Adverse Reactions: Allergies Allergy/AdvReac Type Severity Reaction Status Date / Time NSAIDS (Non-Steroidal Allergy Severe Swelling Verified 10/29/18 23:36 Anti-Inflamma ibuprofen [From Motrin] Allergy Verified 10/29/18 23:36 ketorolac [From Toradol] Allergy Verified 10/29/18 23:36 tramadol Allergy Verified 10/29/18 23:36 Home Medications: Ambulatory Orders Levetiracetam [Keppra] 500 mg PO BID 06/09/18 traZODone HCL [Trazodone HCl] 200 mg PO HS 10/01/18 Asthma: No Cancer: No Cardiac Disorders: No COPD: No Diabetes: No Disorders: Yes (REOCCURENT UTI) HTN: No Seizures: Yes Thyroid Disease: No - Reproductive History (#): 3 Para: 1 Cervical CA: No Dysfunctional Uterine Bleeding: No Ectopic : No Endometrial CA: No Polycystic Ovaries: No Therapeutic (s) & number: Yes (1) Tubal Ligation: No Spontaneous : 0 - Immunization History Td Vaccination: Yes TDAP Vaccination: Yes Immunization Up to Date: Yes - Suicide/Smoking/Psychosocial Hx Smoking Status: Yes Smoking History: Current every day smoker Have you smoked in the past 12 months: Yes Number of Cigarettes Smoked Daily: 2 If you are a former smoker, when did you quit?: 60 DAYS AGO 'Breaking Loose' booklet given: 01/21/14 Hx Alcohol Use: No Drug/Substance Use Hx: No Substance Use Type: None, Marijuana Hx Substance Use Treatment: No Review of Systems - Review of Systems Able to Perform ROS?: Yes Comments:: GENERAL/CONSTITUTIONAL: No fever or chills. No weakness. HEAD, EYES, EARS, NOSE AND THROAT: No change in vision. No ear pain or discharge. No sore throat. CARDIOVASCULAR: No chest pain or shortness of breath. RESPIRATORY: No cough, wheezing, or hemoptysis. GASTROINTESTINAL: No nausea, vomiting, diarrhea or constipation. GENITOURINARY: No dysuria, frequency, or change in urination. MUSCULOSKELETAL: No joint or muscle swelling or pain. No neck or back pain. SKIN: No rash. NEUROLOGIC: No headache, vertigo, or change in strength/sensation. +Seizure. ENDOCRINE: No increased thirst. No abnormal weight change. HEMATOLOGIC/LYMPHATIC: No anemia, easy bleeding, or history of blood clots. ALLERGIC/IMMUNOLOGIC: No hives or skin allergy. *Physical Exam - Physical Exam Comments: GENERAL: Awake, alert, and fully oriented, in no acute distress HEAD: No signs of trauma EYES: PERRLA, EOMI, sclera anicteric, conjunctiva clear ENT: Auricles normal inspection, hearing grossly normal, nares patent, oropharynx clear without exudates. Moist mucosa NECK: Normal ROM, supple, no lymphadenopathy, JVD, or masses LUNGS: Breath sounds equal, clear to auscultation bilaterally. No wheezes, and no crackles HEART: Regular rate and rhythm, normal S1 and S2, no murmurs, rubs or gallops ABDOMEN: Soft, nontender, normoactive bowel sounds. No guarding, no rebound. No masses EXTREMITIES: Normal range of motion, no edema. No clubbing or cyanosis. No cords, erythema, or tenderness NEUROLOGICAL: Cranial nerves II through XII grossly intact. Limited by post- ictal state. SKIN: Warm, Dry, normal turgor, no rashes or lesions noted. ED Treatment Course - LABORATORY CBC & Chemistry Diagram: 11/18/18 10:10 11/18/18 10:10 Medical Decision Making - Medical Decision Making 11/18/18 10:39 Pt with seizure likely due to missed dose of keppra. Will give IV keppra, IV fluids. *DC/Admit/Observation/Transfer Diagnosis at time of Disposition: Seizure disorder, Seizure - Discharge Dispostion Disposition: HOME Condition at time of disposition: Stable Decision to Admit order: No - Referrals Referrals: Jacob Ortiz MD [Primary Care Provider] - - Patient Instructions - Post Discharge Activity
[2018-11-18 10:17] LABS: BASO % 0.8 % (0-2.0); EOS % 0.4 % (0-4.5); HEMATOCRIT 40.2 % (32.4-45.2); HEMOGLOBIN 13.8 GM/dL (10.7-15.3); LYMPH % 40.1 % (8-40); MCH 29.6 pg (25.7-33.7); MCHC 34.3 g/dl (32.0-36.0); MEAN CELL VOLUME 86.3 fl (80-96); MEAN PLT VOLUME 8.1 fl (7.5-11.1); MONO % 10.5 % (3.8-10.2); NEUT % 48.2 % (42.8-82.8); PLATELET COUNT 272 K/MM3 (134-434); RBC 4.66 M/mm3 (3.60-5.2); WHITE BLOOD COUNT 5.6 K/mm3 (4.0-10.0)
[2018-11-18] MEDS ORDERED: ACETAMINOPHEN 1000 MG/100 ML VIAL (NON FORMULARY) IVPB ONE (10:38)
[2018-11-18] MEDS ORDERED: ACETAMINOPHEN INJECTION 100 ML IVPB ONE (10:38)
[2018-11-18 11:39] VITALS: BP 145/102; PULSE 72; TEMP 98.8; BMI 23.0
[2018-11-18 12:00] LABS: ALBUMIN 3.9 g/dl (3.4-5.0); ALK PHOS 58 U/L (45-117); ANION GAP 9 MMOL/L (8-16); BILIRUBIN,TOTAL 0.3 mg/dL (0.2-1); BLOOD UREA NITROGEN 16 mg/dL (7-18); CHLORIDE 107 mmol/L (98-107); CO2 23 mmol/L (21-32); CREATININE 0.8 mg/dL (0.55-1.3); GLUCOSE,RANDOM 98 mg/dL (74-106); POTASSIUM 3.5 mmol/L (3.5-5.1); SGOT/AST 12 U/L (15-37); SGPT/ALT 13 U/L (13-61); SODIUM 139 mmol/L (136-145); TOT PROT 7.4 g/dl (6.4-8.2)
== END 2018-11-18 16:06 | disposition home or self-care (01) ==
LOC: JER 09:53
PROC: 3E033NZ Introduction of Analgesics, Hypnotics, Sedatives into Peripheral Vein, Percutaneous Approach (ICD-10-PCS; principal; 2018-11-18)
PROC: 3E033GC Introduction of Other Therapeutic Substance into Peripheral Vein, Percutaneous Approach (ICD-10-PCS; 2018-11-18)
DX: G40.909 Epilepsy, unspecified, not intractable, without status epilepticus (principal)
CPT/HCPCS: 36415; 80053; 83605; 84703; 85025; 99283-25; J0131; J7030

== ENCOUNTER 2019-01-05 04:55 | Emergency (ER) | payer OTHER ==
[2019-01-05 05:05] VITALS: TEMP 98.5; BMI 23.0
--- NOTE | 2019-01-05 05:36 | PDOC ---
*Physical Exam - Vital Signs Last Vital Signs Temp Pulse Resp BP Pulse Ox 98.5 F 82 22 H 117/98 98 01/05/19 04:55 01/05/19 04:55 01/05/19 04:55 01/05/19 04:55 01/05/19 04:55 Medical Decision Making - Medical Decision Making 01/05/19 05:35 Patient seen by the advanced practice provider under my direct supervision. Ancillary testing reviewed as necessary. I agree with plan as outlined by the advanced practice provider. *DC/Admit/Observation/Transfer Diagnosis at time of Disposition: Dyspnea - Discharge Dispostion Disposition: HOME Condition at time of disposition: Fair - Referrals Referrals: Jacob Ortiz MD [Primary Care Provider] - - Patient Instructions - Post Discharge Activity
[2019-01-05] MEDS ORDERED: DEXAMETHASONE SOD PHOSPHATE 10 MG/1 ML VIAL IM ONE (05:41)
--- NOTE | 2019-01-05 05:46 | PDOC ---
History of Present Illness - General Chief Complaint: Cold Symptoms Stated Complaint: CHEST DISCOMFORT Time Seen by Provider: 01/05/19 05:28 History Source: Patient Exam Limitations: No Limitations Past History - Past Medical History Allergies/Adverse Reactions: Allergies Allergy/AdvReac Type Severity Reaction Status Date / Time NSAIDS (Non-Steroidal Allergy Severe Swelling Verified 01/05/19 05:06 Anti-Inflamma ibuprofen [From Motrin] Allergy Verified 01/05/19 05:06 ketorolac [From Toradol] Allergy Verified 01/05/19 05:06 tramadol Allergy Verified 01/05/19 05:06 Home Medications: Ambulatory Orders Levetiracetam [Keppra] 500 mg PO BID 06/09/18 traZODone HCL [Trazodone HCl] 200 mg PO HS 10/01/18 Asthma: No Cancer: No Cardiac Disorders: No COPD: No Diabetes: No Disorders: Yes (REOCCURENT UTI) HTN: No Seizures: Yes Thyroid Disease: No - Reproductive History (#): 3 Para: 1 Cervical CA: No Dysfunctional Uterine Bleeding: No Ectopic : No Endometrial CA: No Polycystic Ovaries: No Therapeutic (s) & number: Yes (1) Tubal Ligation: No Spontaneous : 0 - Immunization History Td Vaccination: Yes TDAP Vaccination: Yes Immunization Up to Date: Yes - Suicide/Smoking/Psychosocial Hx Smoking Status: Yes Smoking History: Never smoked Have you smoked in the past 12 months: No Number of Cigarettes Smoked Daily: 2 If you are a former smoker, when did you quit?: 60 DAYS AGO Information on smoking cessation initiated: No 'Breaking Loose' booklet given: 01/21/14 Hx Alcohol Use: No Drug/Substance Use Hx: No Substance Use Type: None, Marijuana Hx Substance Use Treatment: No *Physical Exam - Vital Signs Last Vital Signs Temp Pulse Resp BP Pulse Ox 98.5 F 82 22 H 117/98 98 01/05/19 04:55 01/05/19 04:55 01/05/19 04:55 01/05/19 04:55 01/05/19 04:55 - Physical Exam General Appearance: No: Apparent Distress Respiratory/Chest: positive: Chest Tender (Along L chest wall), Lungs Clear, Normal Breath Sounds. negative: Respiratory Distress Cardiovascular: positive: Regular Rhythm, Regular Rate. negative: Murmur Gastrointestinal/Abdominal: positive: Normal Bowel Sounds, Soft. negative: Tender, Distended, Guarding, Rebound Extremity: positive: Normal Inspection. negative: Pedal Edema, Calf Tenderness Integumentary: positive: Normal Color Neurologic: positive: Alert, Normal Mood/Affect Moderate Sedation - Procedure Monitoring Vital Signs: Procedure Monitoring Vital Signs Temperature 98.5 F 01/05/19 04:55 Pulse Rate 82 01/05/19 04:55 Respiratory Rate 22 H 01/05/19 04:55 Blood Pressure 117/98 01/05/19 04:55 O2 Sat by Pulse Oximetry (%) 98 01/05/19 04:55 ED Treatment Course - RADIOLOGY Radiology Studies Ordered: Category Date Time Status CHEST PA & LAT [RAD] Stat Radiology 01/05/19 05:41 Ordered Medical Decision Making - Medical Decision Making 28 y/o F hx of epilepsy, smoker (6 pack year history), occasional marijuana use presents with waking up around 3 AM with sharp/tightness across chest worse with inspiration and cough. Denies having this type of pain before. Denies fever , URI sxs, abd pain, n/v, calf pain, leg swelling, recent travel, use of OCPs. PERC negative Unlikely ACS Likely costochondritis given reproducible CP Patient is allergic to all NSAIDs Plan: IM Decadron, CXR, reassess 01/05/19 05:45 *DC/Admit/Observation/Transfer Diagnosis at time of Disposition: Dyspnea - Discharge Dispostion Disposition: HOME Condition at time of disposition: Fair - Referrals Referrals: Jacob Ortiz MD [Primary Care Provider] - - Patient Instructions - Post Discharge Activity
[2019-01-05] MEDS ORDERED: DEXAMETHASONE SOD PHOSPHATE 10 MG/1 ML VIAL ONE (05:50)
--- NOTE | 2019-01-05 06:43 | PDOC ---
*Physical Exam - Vital Signs Last Vital Signs Temp Pulse Resp BP Pulse Ox 98.5 F 82 22 H 117/98 98 01/05/19 04:55 01/05/19 04:55 01/05/19 04:55 01/05/19 04:55 01/05/19 04:55 ED Treatment Course - RADIOLOGY Radiology Studies Ordered: Category Date Time Status CHEST PA & LAT [RAD] Stat Radiology 01/05/19 05:41 Taken - Medications Given in the ED: ED Medications Discontinued Medications Generic Name Dose Route Start Last Admin Trade Name Darin PRN Reason Stop Dose Admin Dexamethasone Sodium Phosphate 10 mg 01/05/19 05:41 01/05/19 05:53 Decadron Injection - IM 01/05/19 05:42 10 mg ONCE ONE Administration Medical Decision Making - Medical Decision Making CXR wet read negative Patient endorses improvement of sxs after IM Decadron and warm compresses Stable for dc 01/05/19 06:40 *DC/Admit/Observation/Transfer Diagnosis at time of Disposition: Costochondritis - Discharge Dispostion Disposition: HOME Condition at time of disposition: Improved Decision to Admit order: No - Referrals Referrals: Jacob Ortiz MD [Primary Care Provider] - 2 Days - Patient Instructions Printed Discharge Instructions: DI for Costochondritis Additional Instructions: Thank you for choosing [facility]. It was a pleasure taking care of you. You may take Tylenol 650 mg every 4-6 hours by mouth as needed for mild to moderate pain. Do not take more than 4000 mg of Tylenol in 1 day. Apply warm compresses to chest to help with pain Follow-up with your doctor in 2-3 days Return to the Emergency Department if your symptoms worsen or persist or have other concerning symptoms. - Post Discharge Activity
[2019-01-05 07:01] VITALS: BP 119/86; PULSE 80
--- NOTE | 2019-01-08 18:10 | EKG ---
Test Reason : Blood Pressure : / mmHG Vent. Rate : 083 BPM Atrial Rate : 083 BPM P-R Int : 148 ms QRS Dur : 074 ms QT Int : 368 ms P-R-T Axes : 062 059 056 degrees QTc Int : 432 ms POOR DATA QUALITY, INTERPRETATION MAY BE ADVERSELY AFFECTED NORMAL SINUS RHYTHM SEPTAL INFARCT (CITED ON OR BEFORE 30-OCT-2018) ABNORMAL ECG WHEN COMPARED WITH ECG OF 30-OCT-2018 00:48, NONSPECIFIC T WAVE ABNORMALITY NO LONGER EVIDENT IN ANTERIOR LEADS Confirmed by MD PHILIPPE, EM ([id number]) on 01/08/2019 6:10:25 PM Referred By: Confirmed By:EM PAEZ MD
== END 2019-01-05 07:01 | disposition home or self-care (01) ==
LOC: JER 04:55
PROC: 3E023GC Introduction of Other Therapeutic Substance into Muscle, Percutaneous Approach (ICD-10-PCS; principal; 2019-01-05)
DX: M94.0 Chondrocostal junction syndrome [Tietze] (principal); Z87.440 Personal history of urinary (tract) infections; Z87.891 Personal history of nicotine dependence
CPT/HCPCS: 71046-TC-FY; 93005; 93010; 99282-25; J1100

== ENCOUNTER 2019-01-05 12:32 | Inpatient (IN) | payer OTHER ==
[2019-01-05 12:44] VITALS: BMI 24.0
--- NOTE | 2019-01-05 13:25 | PDOC ---
History of Present Illness - General Chief Complaint: Seizure Stated Complaint: Seizure Time Seen by Provider: 01/05/19 13:20 - History of Present Illness Initial Comments: 01/05/19 13:23 28 yo F with h/o epilepsy who p/w witnessed convulsions. Patient reports 3 episodes of widespread clonic convulsions beginning this afternoon following d/ c from ED (01/05/19). Patient evaluated in ED earlier today for reproducible chest wall/pain, received Decadron, nml CXR. Patient states that she had 3 episodes of witnessed convulsions with flailing of all four exts.,eyes open, lasting approximately 5 minutes each. Last episode 1 hour [employer], while in bathroom. Does not recall falling, but reports regaining consciousness on bathroom floor per pt. spouse. Reports urinary incotnince, and general malaise/ lethargy. States that last seizure 1 week ago. Patient usually adherent to daily Keppra 750 mg PO, but did not take home dose today. Endorses 3+ episodes of non bloody emesis today. + diffuse, dull headache, with absent neck pain/ stiffness. + photophobia, phonophobia. Follows with neurology (not on staff) Patient denies WARREN, vision change, hearing loss, tinnitus, palpitations, cough, wheezing, orthopena, PND, leg swelling/pain, F,C, CP, SOB, urinary complaints, hematuria, BPR, abdominal pain, diarrhea, constipation, lightheadedness, sensory changes. PMHx: as noted above ROS: as noted SHx: Daily tobacco use, recreational marijuanna. Denies IVDA. Allergies: Tramadol, NSAIDs Past History - Past Medical History Allergies/Adverse Reactions: Allergies Allergy/AdvReac Type Severity Reaction Status Date / Time NSAIDS (Non-Steroidal Allergy Severe Swelling Verified 01/05/19 05:06 Anti-Inflamma ibuprofen [From Motrin] Allergy Verified 01/05/19 05:06 ketorolac [From Toradol] Allergy Verified 01/05/19 05:06 tramadol Allergy Verified 01/05/19 05:06 Home Medications: Ambulatory Orders Levetiracetam [Keppra] 500 mg PO BID 06/09/18 traZODone HCL [Trazodone HCl] 200 mg PO HS 10/01/18 Asthma: No Cancer: No Cardiac Disorders: No COPD: No Diabetes: No Disorders: Yes (REOCCURENT UTI) HTN: No Seizures: Yes Thyroid Disease: No - Reproductive History (#): 3 Para: 1 Cervical CA: No Dysfunctional Uterine Bleeding: No Ectopic : No Endometrial CA: No Polycystic Ovaries: No Therapeutic (s) & number: Yes (1) Tubal Ligation: No Spontaneous : 0 - Immunization History Td Vaccination: Yes TDAP Vaccination: Yes Immunization Up to Date: Yes - Suicide/Smoking/Psychosocial Hx Smoking Status: Yes Smoking History: Current every day smoker Have you smoked in the past 12 months: No Number of Cigarettes Smoked Daily: 10 If you are a former smoker, when did you quit?: 60 DAYS AGO Information on smoking cessation initiated: No 'Breaking Loose' booklet given: 01/21/14 Hx Alcohol Use: No Drug/Substance Use Hx: No Substance Use Type: None, Marijuana Hx Substance Use Treatment: No Review of Systems - Review of Systems Comments:: 01/05/19 13:23 GENERAL/CONSTITUTIONAL: No fever or chills. No weakness. HEAD, EYES, EARS, NOSE AND THROAT: No change in vision. No ear pain or discharge. No sore throat. CARDIOVASCULAR: No chest pain or shortness of breath RESPIRATORY: No cough, wheezing, or hemoptysis. GASTROINTESTINAL: +nausea, vomiting. No diarrhea or constipation. GENITOURINARY: No dysuria, frequency, or change in urination. MUSCULOSKELETAL: No joint or muscle swelling or pain. No neck or back pain. SKIN: No rash NEUROLOGIC: + headache, convulsions. No vertigo, change in strength/sensation. ENDOCRINE: No increased thirst. No abnormal weight change HEMATOLOGIC/LYMPHATIC: No anemia, easy bleeding, or history of blood clots. ALLERGIC/IMMUNOLOGIC: No hives or skin allergy. *Physical Exam - Vital Signs Last Vital Signs Temp Pulse Resp BP Pulse Ox 98.6 F 66 18 122/76 100 01/05/19 12:41 01/05/19 12:41 01/05/19 12:41 01/05/19 12:41 01/05/19 12:41 - Physical Exam Comments: 01/05/19 13:23 GENERAL: Awake, alert, and fully oriented, in no acute distress HEAD: No signs of trauma, normocephalic, atraumatic EYES: PERRLA, EOMI, sclera anicteric, conjunctiva clear ENT: Auricles normal inspection, hearing grossly normal, nares patent, oropharynx clear without exudates. Moist mucosa NECK: Normal ROM, supple, no lymphadenopathy, JVD, or masses LUNGS: No distress, speaks full sentences, clear to auscultation bilaterally HEART: Regular rate and rhythm, normal S1 and S2, no murmurs, rubs or gallops, peripheral pulses normal and equal bilaterally. ABDOMEN: + slight epigastria ttp. Soft, nontender, normoactive bowel sounds. No guarding, no rebound. No masses, Neg CVA ttp. EXTREMITIES : Normal inspection, Normal range of motion, no edema. No clubbing or cyanosis. NEUROLOGICAL: Cranial nerves II through XII grossly intact. Normal speech, normal gait, no focal sensorimotor deficits SKIN: Warm, Dry, normal turgor, no rashes or lesions noted Moderate Sedation - Procedure Monitoring Vital Signs: Procedure Monitoring Vital Signs Temperature 98.6 F 01/05/19 12:41 Pulse Rate 66 01/05/19 12:41 Respiratory Rate 18 01/05/19 12:41 Blood Pressure 122/76 01/05/19 12:41 O2 Sat by Pulse Oximetry (%) 100 01/05/19 12:41 ED Treatment Course - LABORATORY CBC & Chemistry Diagram: 01/05/19 13:50 01/05/19 13:50 Medical Decision Making - Medical Decision Making 01/05/19 13:40 28 yo F with h/o epilepsy who p/w witnessed convulsions x 3, with fall. Vitals wnl, AF, A&OX3. Physical exam unremarkable. CTH r/o hemmorhage, hematoma, skull fracture. C-spine neg per NEXUS. No evidence of basilar skull frx. + N/V, and WARREN. No physical evidence of increased ICP. Will evaluate for epileptic vs. nonepileptic etiology of seizure. Will assess for VBI/TIA, cardiac dysarrythmias , hypoglycemia, hypovolemia, electrolyte abnml, metabolic and toxic derangements , acid-base disturbances, infection. 01/05/19 13:42 ED Course: NS, Zofran, Tylenol, Famotidine, Keppra 500 mg 01/05/19 14:12 EKG: NSR with absent DUGLAS, STD. Nml interval duration and axis. Nml R wave progression. 01/05/19 15:17 CBC,CMP: Unremarkable 01/05/19 16:25 CTH: Unremarkable Advised to f/u with neurology. 01/05/19 16:49 Patient with 5 minutes of witnessed convulsions in hallway. 01/05/19 17:[address] Kat Admitted to tele *DC/Admit/Observation/Transfer Diagnosis at time of Disposition: Seizure disorder, Status epilepticus - Discharge Dispostion Disposition: HOME Condition at time of disposition: Stable Decision to Admit order: Yes - Referrals Referrals: Fina Ortiz MD [Primary Care Provider] - Giovanny Cruz MD [Staff Physician] - - Patient Instructions Printed Discharge Instructions: DI for Seizure Disorder -- Adult Additional Instructions: Please return to the emergency department with any new or worsening symptoms or concerns. Please follow up with your primary care physician within 72 hours. Please follow up with neurology within one week - Post Discharge Activity - Attestations Physician Attestion: 01/05/19 13:24 I attest to the information provided in this note.
[2019-01-05] MEDS ORDERED: levETIRAcetam 500 MG/5 ML INJECTION VIAL IVPB ONE ×3 (13:35→13:56)
[2019-01-05] MEDS ORDERED: ACETAMINOPHEN 1000 MG/100 ML VIAL (NON FORMULARY) IVPB ONE (13:35)
[2019-01-05] MEDS ORDERED: ONDANSETRON 4 MG/2 ML VIAL IVPUSH ONE (13:35)
[2019-01-05] MEDS ORDERED: SODIUM CHLORIDE 1,000 ML IV STA (13:35)
[2019-01-05] MEDS ORDERED: FAMOTIDINE 20 MG/50 ML IVPB 20 MG/50 ML MG IVPB ONE ×2 (13:41→13:56)
[2019-01-05] MEDS ORDERED: ACETAMINOPHEN INJECTION 100 ML IVPB ONE (13:56)
[2019-01-05] MEDS ORDERED: ONDANSETRON 4 MG/2 ML VIAL ONE (13:56)
[2019-01-05 14:11] LABS: BASO % 0.2 % (0-2.0); HEMATOCRIT 42.4 % (32.4-45.2); HEMOGLOBIN 14.7 GM/dL (10.7-15.3); LYMPH % 13.7 % (8-40); MCH 30.4 pg (25.7-33.7); MCHC 34.7 g/dl (32.0-36.0); MEAN CELL VOLUME 87.5 fl (80-96); MEAN PLT VOLUME 8.5 fl (7.5-11.1); MONO % 0.9 % (3.8-10.2); NEUT % 85.2 % (42.8-82.8); PLATELET COUNT 314 K/MM3 (134-434); RBC 4.85 M/mm3 (3.60-5.2); RDW 14.9 % (11.6-15.6)
--- NOTE | 2019-01-05 14:13 | PDOC ---
Attending Attestation - [facility] HPI: 01/05/19 15:09 The patient is a 28-year-old female, with a past medical history of epilepsy, who presents to the ED s/p 3 episodes of witnessed clonic convulsions this afternoon. The patient was seen in the ED earlier today (01/05/19) and evaluated for reproducible chest wall pain. Patient received Decadron and Chest XR was taken which was normal. Patient states that she experienced 3 episodes of witnessed convulsions with flailing of all her extremities. As per patients boyfriend, her eyes were open and all episodes lasted for approximately 5 minutes. Her last episode was 1 hour prior to arrival. The patient does not recall the incident, but woke up on her bathroom floor. Patient is on Keppra 750 mg PO, but did not take her dose for today. Last seizure episode was last week. Patient is also complaining headache, photophobia, incontinence, generalized malaise, and 3 episodes of nonbloody emesis. The patient denies any fevers, chills, diarrhea, constipation, or abdominal pain. Denies any chest pain, shortness of breath, or palpitations. Denies any hematuria. Denies any lightheadedness, vision or sensory changes. Allergies: NSAIDS, ibuprofen, ketorolac, tramadol. Social History: Reports tobacco use, recreational marijuana. Denies IVDA. PCP: Dr. Fina Ortiz - Physicial Exam PE: 01/05/19 15:12 GENERAL: The patient is in no acute distress. HEAD: Normal with no signs of trauma. EYES: PERRLA, EOMI, sclera anicteric, conjunctiva clear. ENT: Ears normal, nares patent, oropharynx clear without exudates. Moist mucous membranes. NECK: Normal range of motion, supple without lymphadenopathy, JVD, or masses. LUNGS: Breath sounds equal, clear to auscultation bilaterally. No wheezes, and no crackles. HEART:Regular rate and rhythm, normal S1 and S2 without murmur, rub or gallop. ABDOMEN: (+)Mild epigatric tenderness to palpation. Soft, normoactive bowel sounds. No guarding, no rebound. No masses palpable. EXTREMITIES: Normal range of motion, no edema. No clubbing or cyanosis. No erythema, or tenderness. NEUROLOGICAL: Cranial nerves II through XII grossly intact. Normal speech. No focal neurological deficits. MUSCULOSKELETAL: Back non-tender to palpation, no CVA tenderness SKIN: Warm, Dry, normal turgor, no rashes or lesions noted. <María Broderick - Last Filed: 01/05/19 15:17> - Resident Resident Name: Elton Galindo - ED Attending Attestation I have performed the following: I have examined & evaluated the patient, The case was reviewed & discussed with the resident, I agree w/resident's findings & plan, Exceptions are as noted - Medical Decision Making 01/05/19 14:13 EKG - NSR rate of 64 bpm, axis nml, intervals nml, no st elevation or depression 01/05/19 15:50 Laboratory Tests 01/05/19 01/05/19 01/05/19 13:50 13:50 13:50 WBC 6.0 Hgb 14.7 Hct 42.4 Plt Count 314 BUN 15 Creatinine 1.0 Serum , Qual Negative Pt reports headache CT pending given Keppra for seizure ppx Anticipate d/c Pt was noted to have an additional seizure Will place on observation Clinical impression: seizure disorder, initial presentation <Danii George - Last Filed: 01/08/19 01:01> Attestations - Attestations 01/05/19 15:14 Documentation prepared by María Broderick, acting as medical lab director for Danii George MD. <María Broderick - Last Filed: 01/05/19 15:17>
[2019-01-05 14:57] LABS: ALBUMIN 4.1 g/dl (3.4-5.0); ALK PHOS 65 U/L (45-117); ANION GAP 8 MMOL/L (8-16); BILIRUBIN,TOTAL 0.6 mg/dL (0.2-1); BLOOD UREA NITROGEN 15 mg/dL (7-18); CALCIUM 9.5 mg/dL (8.5-10.1); CHLORIDE 107 mmol/L (98-107); CO2 21 mmol/L (21-32); GLUCOSE,RANDOM 122 mg/dL (74-106); POTASSIUM 4.5 mmol/L (3.5-5.1); SGOT/AST 18 U/L (15-37); SGPT/ALT 15 U/L (13-61); SODIUM 136 mmol/L (136-145); TOT PROT 8.3 g/dl (6.4-8.2)
[2019-01-05 15:29] LABS: MAGNESIUM 2.3 mg/dL (1.8-2.4)
--- NOTE | 2019-01-05 17:47 | HP ---
CHIEF COMPLAINT: multiple seizures PCP: HISTORY OF PRESENT ILLNESS: 28 y/o F with PMH epilepsy (dx 5 years ago at [place]), who presents to the ED c/o three episodes of witnessed seizures this afternoon. States that she was seen initially in our ED this AM for chest discomfort. Was given decadron and sent home. States that her episodes of seizures x 3 happened when she got home. Each episode lasted 1-2 minutes. On the first occasion, boyfriend found her on the bathroom floor convulsing with urinary incontinence. The other two episodes happened when she was lying in her bed. For this reason, she came to the ED for evaluation. Endorses recent cocaine use 2 days ago as it "helps her study." Also missed her AM dose of keppra 750mg due to her ED visit. Does not follow routinely with her neurologist. Has been on the same dose of keppra for this year. Endorses post-ictal confusion, tongue bite without significant trauma , as well as WARREN. Without fever, chills, SOB, chest pain or pressure, or changes in bowel function. ER course was notable for: (1) ofirmev 1g IV (2) keppra 1000mg loading (3) zofran (4) Pepcid (5) 1L IV NS Recent Travel: to in [place] PAST MEDICAL HISTORY: as above PAST SURGICAL HISTORY: "appendix surgery" states it was not appendectomy Social History: in school getting her masters in psych and music Smoking: decreased from 1/2 ppd- to 5 cigs/day, understands she should quit Alcohol: socially Drugs: cocaine - most recent use 2 days ago Family History: mother- esophageal cancer, father - from [place] Allergies NSAIDS (Non-Steroidal Anti-Inflamma Allergy (Severe, Verified 01/05/19 05:06) Swelling ibuprofen [From Motrin] Allergy (Verified 01/05/19 05:06) ketorolac [From Toradol] Allergy (Verified 01/05/19 05:06) tramadol Allergy (Verified 01/05/19 05:06) hives, difficulty breathing HOME MEDICATIONS: Home Medications Medication Instructions Recorded Levetiracetam [Keppra] 750 mg PO BID 06/09/18 seroquel lexapro 300 mg daily 10mg daily 10/01/18 verified with patient verbally REVIEW OF SYSTEMS CONSTITUTIONAL: Absent: fever, chills, diaphoresis, generalized weakness, malaise, loss of appetite, weight change HEENT: Absent: rhinorrhea, nasal congestion, throat pain, throat swelling, difficulty swallowing, mouth swelling, ear pain, eye pain, visual changes CARDIOVASCULAR: Absent: chest pain, syncope, palpitations, irregular heart rate, lightheadedness , peripheral edema RESPIRATORY: Absent: cough, shortness of breath, dyspnea with exertion, orthopnea, wheezing, stridor, hemoptysis GASTROINTESTINAL: Absent: abdominal pain, abdominal distension, nausea, vomiting, diarrhea, constipation, melena, hematochezia GENITOURINARY: Absent: dysuria, frequency, urgency, hesitancy, hematuria, flank pain, genital pain MUSCULOSKELETAL: Absent: myalgia, arthralgia, joint swelling, back pain, neck pain SKIN: Absent: rash, itching, pallor HEMATOLOGIC/IMMUNOLOGIC: Absent: easy bleeding, easy bruising, lymphadenopathy, frequent infections ENDOCRINE: Absent: unexplained weight gain, unexplained weight loss, heat intolerance, cold intolerance NEUROLOGIC: Absent: headache, focal weakness or paresthesias, dizziness, unsteady gait, seizure, mental status changes, bladder or bowel incontinence PSYCHIATRIC: Absent: anxiety, depression, suicidal or homicidal ideation, hallucinations. PHYSICAL EXAMINATION Vital Signs - 24 hr 01/05/19 01/05/19 12:41 14:00 Temperature 98.6 F Pulse Rate 66 Respiratory 18 Rate Blood Pressure 122/76 O2 Sat by Pulse 100 100 Oximetry (%) GENERAL: Resting in bed. AAO x 3, however lethargic. in no acute distress HEAD: Normal with no signs of trauma. EYES: Pupils equal, round and reactive to light, extraocular movements intact, sclera anicteric, conjunctiva clear. EARS, NOSE, THROAT: Ears normal, nares patent, oropharynx clear without exudates. Moist mucous membranes. NECK: Normal range of motion, supple LUNGS: Breath sounds equal, clear to auscultation bilaterally. No wheezes, and no crackles. No accessory muscle use. HEART: Regular rate and rhythm, normal S1 and S2 without murmur, rub or gallop. ABDOMEN: Soft, nontender, not distended, normoactive bowel sounds. LOWER EXTREMITIES: 2+ pt pulses, warm, well-perfused. NEUROLOGICAL: Cranial nerves II-XII intact. lethargic. 3/5 motor strength UE, LE. sensation intact PSYCHIATRIC: Cooperative. SKIN: Warm, dry, normal turgor Laboratory Results - last 24 hr 01/05/19 01/05/19 01/05/19 13:50 13:50 13:50 WBC 6.0 RBC 4.85 Hgb 14.7 Hct 42.4 MCV 87.5 MCH 30.4 MCHC 34.7 RDW 14.9 Plt Count 314 MPV 8.5 Absolute Neuts (auto) 5.1 Neutrophils % 85.2 H D Lymphocytes % 13.7 D Monocytes % 0.9 L D Eosinophils % 0.0 D Basophils % 0.2 Nucleated RBC % 0 Sodium 136 Potassium 4.5 Chloride 107 Carbon Dioxide 21 Anion Gap 8 BUN 15 Creatinine 1.0 Creat Clearance w eGFR > 60 Random Glucose 122 H Calcium 9.5 Magnesium 2.3 Total Bilirubin 0.6 AST 18 ALT 15 Alkaline Phosphatase 65 Total Protein 8.3 H Albumin 4.1 Serum , Qual Negative Head CT: without acute changes. no bleed or infarct EKG: NSR, qtc 416ms. no acute st-t wave changes ASSESSMENT/PLAN: 28 y/o F with PMH epilepsy (dx 5 years ago at [place]), who presents to the ED c/o three episodes of witnessed seizures this afternoon. #Seizures -possible that decadron may have lowered her threshold. was recently given in the ED -also possible that this is 2/2 noncompliance; will follow keppra level, or 2/2 cocaine use ( +utox) -if level is low, may need to consider adding additional agent -s/p keppra loading in ED ([id number]). will c/w keppra 750mg PO BID -Neuro consult: Dr. Cruz -oswaldo precautions -will hold home meds seroquel and lexapro to avoid worsening mental status -NPO for now #Depression -will hold seroquel, lexapro #F/E/N no fluids required at this time continue to follow lytes NPO for now. can take PO doses in AM if less lethargic. #PPX DVT: SCD's #Dispo admit to tele obs Visit type - Emergency Visit Emergency Visit: Yes ED Registration Date: 01/05/19 Care time: The patient presented to the Emergency Department on the above date and was hospitalized for further evaluation of their emergent condition. - New Patient This patient is new to me today: Yes Date on this admission: 01/05/19 - Critical Care Critical Care patient: No
[2019-01-05] MEDS ORDERED: ACETAMINOPHEN 325 MG TABLET (FP) PO ONE (17:57)
[2019-01-05 18:10] LABS: METHADONE, UR NEGATIVE ng/ml (CUTOFF=300); OPIATES, URI NEGATIVE ng/ml (CUTOFF=300); PHENCYCLIDINE,URINE NEGATIVE ng/ml (CUTOFF=25); URINE AMPHETAMINES NEGATIVE ng/ml (CUTOFF=500); URINE BARBITURATES NEGATIVE ng/ml (CUTOFF=200); URINE BENZODIAZEPINES NEGATIVE ng/ml (CUTOFF=200)
[2019-01-05 18:12] LABS: COCAINE, UR POSITIVE ng/ml (CUTOFF=300)
--- NOTE | 2019-01-05 20:23 | PN ---
Teaching Attending Note Name of Resident: Shey Patrick ATTENDING PHYSICIAN STATEMENT I saw and evaluated the patient. I reviewed the resident's note and discussed the case with the resident. I agree with the resident's findings and plan as documented. SUBJECTIVE: Patient is a 28 year old woman with H polysubstance abuse, tobacco use, depression, hemorrhagic ovarian cyst and epilepsy (diagnosed 5 years ago at [facility]), who presents to the ER complaining of three episodes of witnessed seizures this afternoon. States that she was seen initially in our ER this morning for chest discomfort. Was deemed to have costochondritis, given decadron and sent home. States that her episodes of seizures happened when she got home. Each episode lasted 1-2 minutes. On the first occasion, boyfriend found her on the bathroom floor convulsing with urinary incontinence. The other two episodes happened when she was lying in her bed. Admits to recent cocaine use 2 days ago as it "helps her study." Also missed her AM dose of keppra 750mg due to her ER visit. Does not follow routinely with her neurologist. Has been on the same dose of keppra for this year. Has post-ictal confusion, tongue bite without significant trauma, as well as headache. She had another seizure in the ER while getting a head CT scan. Also admits to one seizure episode 1 week ago. Her LMP was 2 weeks ago. Denies fever, chills, SOB, chest pain or pressure, or changes in bowel function. OBJECTIVE: Somnolent but arousable Vital Signs Period Temp Pulse Resp BP Sys/Ho Pulse Ox Last 24 Hr 98.6 F 66 18 122/76 100-100 HEENT: No Jaundice, eye redness or discharge, PERRLA. Normocephalic, atraumatic. External ears are normal and hearing is grossly intact. No nasal discharge. Neck: Supple, nontender. No palpable adenopathy or thyromegaly. No JVD Chest: Good effort. Clear to auscultation and percussion. Heart: Regular. No S3, rub or murmur Abdomen: Not distended, soft, nontender and no HSM. No rebound or guarding. Normal bowel sounds. Ext: Peripheral pulses intact. No leg edema. Skin: Warm and dry. No petechiae, rash or ecchymosis. Neuro: Somnolent but arousable. CN 2-12 grossly intact. Sensation grossly intact in all four extremities and DTR are symmetric. Psych: Appropriate mood and affect. Current Medications Generic Name Dose Route Start Last Admin Trade Name Darin PRN Reason Stop Dose Admin Levetiracetam 750 mg 01/06/19 10:00 Keppra - PO BID [facility] Home Medications Medication Instructions Recorded Escitalopram Oxalate [Lexapro -] 10 mg DAILY 01/05/19 Quetiapine Fumarate [Seroquel] 300 mg PO DAILY 01/05/19 levETIRAcetam [Keppra -] 750 mg BID 01/05/19 Abnormal Lab Results 01/05/19 01/05/19 01/05/19 13:50 13:50 17:43 Neutrophils % 85.2 H D Monocytes % 0.9 L D Random Glucose 122 H Total Protein 8.3 H Cocaine Screen Positive A* U Marijuana (THC) Screen Positive A* ASSESSMENT AND PLAN: 1. Breakthrough Seizure - No obvious precipitating factor. Urine toxicology showed cocaine and marijuana. No acute abnormality on head CT. Neurology consulted. Got loaded with 1000 mg of Keppra in the ER, and will continue 750 mg IV bid for now. Will keep her NPO for now, do neurochecks and implement seizure, fall and aspiration precautions. Once Keppra level is available, then will decide whether she needs any changes to her anti-seizure regimen. Check HbA1c. Will continue Seroquel and Lexapro once she can safely take PO medications. 2. Tobacco Use Counseled on risks associated with tobacco use. We will provide patient all the necessary assistance to facilitate smoking cessation and prescribe Nicotine patch. 3. Polysubstance abuse - Patient counseled to abstain from drug use. Will consult process control specialist and refer to drug detox upon discharge. 4. DVT prophylaxis - Lovenox 40 mg SQ q 24 hours. 5. Advance directives - Full code
[2019-01-05] MEDS ORDERED: ESCITALOPRAM OXALATE 10 MG TABLET (FP) PO SCH (22:00)
[2019-01-05] MEDS ORDERED: QUEtiapine FUMARATE 300 MG TABLET PO SCH (22:00)
[2019-01-05] MEDS ORDERED: oxyCODONE HCL 5 MG TABLET PO ONE (22:03)
[2019-01-05] MEDS ORDERED: oxyCODONE HCL 5 MG TABLET ONE (22:15)
[2019-01-05] MEDS ORDERED: ACETAMINOPHEN 325 MG TABLET (FP) ONE (22:15)
--- NOTE | 2019-01-05 22:25 | CON.NEURO ---
Consult - Past Medical History HOSPITALITY ASSOCIATE: Yes: Seizure ...LMP: 03/30/18 - Alcohol/Substance Use Hx Alcohol Use: No - Smoking History Smoking history: Current every day smoker Have you smoked in the past 12 months: No Aproximately how many cigarettes per day: 10 If you are a former smoker, when did you quit?: 60 DAYS AGO - Social History Usual Living Arrangement: With Significant Other Home Medications - Allergies Allergies/Adverse Reactions: Allergies Allergy/AdvReac Type Severity Reaction Status Date / Time NSAIDS (Non-Steroidal Allergy Severe Swelling Verified 01/05/19 05:06 Anti-Inflamma ibuprofen [From Motrin] Allergy Verified 01/05/19 05:06 ketorolac [From Toradol] Allergy Verified 01/05/19 05:06 tramadol Allergy Verified 01/05/19 05:06 - Home Medications Home Medications: Ambulatory Orders Escitalopram Oxalate [Lexapro -] 10 mg DAILY 01/05/19 Quetiapine Fumarate [Seroquel] 300 mg PO DAILY 01/05/19 levETIRAcetam [Keppra -] 750 mg BID 01/05/19 Physical Exam-Neuro Vital Signs: Vital Signs Temperature 98.6 F 01/05/19 12:41 Pulse Rate 66 01/05/19 12:41 Respiratory Rate 18 01/05/19 12:41 Blood Pressure 122/76 01/05/19 12:41 O2 Sat by Pulse Oximetry (%) 100 01/05/19 14:00 Labs: CBC, BMP 01/05/19 13:50 01/05/19 13:50 Assessment/Plan cc Breakthrough seizure HPI 28 year old female history of epilepsy , diagnoed five years ago. Patient did missed her keppra , few doses. She has four episode of seizure with tonic clonic activity and tongue bite. Patient is fully alert and was loaded with keppra and no seizure, and ct head was unremarkable. She aslo suffers from anxiety depression and currently not working. PAST MEDICAL HISTORY: as above PAST SURGICAL HISTORY: "appendix surgery" states it was not appendectomy Social History: in school getting her masters in psych and music Smoking: decreased from 1/2 ppd- to 5 cigs/day, understands she should quit Alcohol: socially Drugs: cocaine - most recent use 2 days ago Family History: mother- esophageal cancer, father - from [place] Allergies NSAIDS (Non-Steroidal Anti-Inflamma Allergy (Severe, Verified 01/05/19 05:06) Swelling ibuprofen [From Motrin] Allergy (Verified 01/05/19 05:06) ketorolac [From Toradol] Allergy (Verified 01/05/19 05:06) tramadol Allergy (Verified 01/05/19 05:06) hives, difficulty breathing HOME MEDICATIONS: Home Medications Medication Instructions Recorded Levetiracetam [Keppra] 750 mg PO BID 06/09/18 seroquel lexapro 300 mg daily 10mg daily 10/01/18 ROS unremarkable NEUROLOGICAL EXAMINATION Alert oriented x 3 CN all intact, eomi, pupils reactive motor 5/5 all intact sensation is normal ct head unremarkable Assessment Breakthrough seizure due to noncompliance of medicaiton Plan agree wtih iv dose of keppra and resume home dose seizure precaution and need to comply was discussed with patient Thanking you so much Giovanny Cruz MD
[2019-01-06] MEDS ORDERED: ACETAMINOPHEN 500 MG TABLET (FP) PO ONE ×2 (07:14→22:00)
[2019-01-06 07:35] LABS: BASO % 0.3 % (0-2.0); EOS % 0.1 % (0-4.5); HEMATOCRIT 36.1 % (32.4-45.2); HEMOGLOBIN 12.3 GM/dL (10.7-15.3); LYMPH % 29.1 % (8-40); MCH 29.8 pg (25.7-33.7); MCHC 34.2 g/dl (32.0-36.0); MEAN CELL VOLUME 87.3 fl (80-96); MEAN PLT VOLUME 8.5 fl (7.5-11.1); NEUT % 61.5 % (42.8-82.8); PLATELET COUNT 277 K/MM3 (134-434); RBC 4.14 M/mm3 (3.60-5.2); RDW 14.9 % (11.6-15.6); WHITE BLOOD COUNT 8.3 K/mm3 (4.0-10.0)
[2019-01-06 08:05] LABS: ANION GAP 6 MMOL/L (8-16); BLOOD UREA NITROGEN 18 mg/dL (7-18); CALCIUM 7.9 mg/dL (8.5-10.1); CHLORIDE 108 mmol/L (98-107); CO2 24 mmol/L (21-32); CREATININE 0.9 mg/dL (0.55-1.3); GLUCOSE,RANDOM 91 mg/dL (74-106); PHOSPHOROUS 4.2 mg/dL (2.5-4.9); POTASSIUM 4.1 mmol/L (3.5-5.1); SODIUM 138 mmol/L (136-145)
[2019-01-06] MEDS ORDERED: SODIUM CHLORIDE 0.9% 500 ML INFUS.BAG IV ONE (08:34)
[2019-01-06] MEDS ORDERED: ESCITALOPRAM OXALATE 10 MG TABLET (FP) PO SCH (10:00)
[2019-01-06] MEDS ORDERED: levETIRAcetam 250 MG TABLET (FP) PO SCH (10:00)
[2019-01-06] MEDS ORDERED: ESCITALOPRAM OXALATE 10 MG TABLET (FP) PO ONE (10:33)
--- NOTE | 2019-01-06 10:53 | EKG ---
Test Reason : Blood Pressure : / mmHG Vent. Rate : 064 BPM Atrial Rate : 064 BPM P-R Int : 146 ms QRS Dur : 070 ms QT Int : 404 ms P-R-T Axes : 068 070 073 degrees QTc Int : 416 ms NORMAL SINUS RHYTHM WITH SINUS ARRHYTHMIA NORMAL ECG WHEN COMPARED WITH ECG OF 05-JAN-2019 04:59, CRITERIA FOR SEPTAL INFARCT ARE NO LONGER PRESENT Confirmed by PAT GATICA, WILMER ([id number]) on 01/06/2019 10:53:19 AM Referred By: Confirmed By:WILMER STEWART MD
--- NOTE | 2019-01-06 13:41 | PN ---
Physical Exam: SUBJECTIVE: Patient seen and examined at bedside- patient said she had a seizure this AM but no one witnessed; she then fell in the bathroom, hit head, and a head CT was done- with no acute pathology patient states she is having a bad headache though and had an episode of vomiting OBJECTIVE: Vital Signs Period Temp Pulse Resp BP Sys/Ho Pulse Ox Last 24 Hr 97.9 F-98.2 F 48-85 18-20 99-124/48-80 99-100 GENERAL: The patient is awake, alert, appears in slight distress HEAD: Normal with no signs of trauma. EYES: PEERLA: EOMI; no scleral icterus NECK: no JVD; no lymphadenopathy. LUNGS: CTA B/L; no rales, rhonchi or wheezingh HEART: Regular rate and rhythm, S1, S2 without murmur, rub or gallop. ABDOMEN: Soft, nontender, nondistended, normoactive bowel sounds, no guarding, no rebound, no hepatosplenomegaly, no masses. EXTREMITIES: 2+ pulses, warm, well-perfused, no edema. NEUROLOGICAL: Cranial nerves II through XII grossly intact. Normal speech, gait not observed. sensation intact B/L; 5/5 strength UE/LE SKIN: Warm, dry, normal turgor, no rashes or lesions noted Laboratory Results - last 24 hr 01/05/19 01/05/19 01/05/19 13:50 13:50 13:50 WBC 6.0 RBC 4.85 Hgb 14.7 Hct 42.4 MCV 87.5 MCH 30.4 MCHC 34.7 RDW 14.9 Plt Count 314 MPV 8.5 Absolute Neuts (auto) 5.1 Neutrophils % 85.2 H D Lymphocytes % 13.7 D Monocytes % 0.9 L D Eosinophils % 0.0 D Basophils % 0.2 Nucleated RBC % 0 Sodium 136 Potassium 4.5 Chloride 107 Carbon Dioxide 21 Anion Gap 8 BUN 15 Creatinine 1.0 Creat Clearance w eGFR > 60 Random Glucose 122 H Calcium 9.5 Phosphorus Magnesium 2.3 Total Bilirubin 0.6 AST 18 ALT 15 Alkaline Phosphatase 65 Total Protein 8.3 H Albumin 4.1 Serum , Qual Negative Opiates Screen Methadone Screen Barbiturate Screen Phencyclidine Screen Ur Amphetamines Screen MDMA (Ecstasy) Screen Benzodiazepines Screen Cocaine Screen U Marijuana (THC) Screen 01/05/19 01/06/19 01/06/19 17:43 06:00 06:00 WBC 8.3 RBC 4.14 Hgb 12.3 Hct 36.1 MCV 87.3 MCH 29.8 MCHC 34.2 RDW 14.9 Plt Count 277 MPV 8.5 Absolute Neuts (auto) 5.1 Neutrophils % 61.5 D Lymphocytes % 29.1 D Monocytes % 9.0 D Eosinophils % 0.1 D Basophils % 0.3 Nucleated RBC % 0 Sodium 138 Potassium 4.1 Chloride 108 H Carbon Dioxide 24 Anion Gap 6 L BUN 18 Creatinine 0.9 Creat Clearance w eGFR > 60 Random Glucose 91 Calcium 7.9 L Phosphorus 4.2 Magnesium 2.0 Total Bilirubin AST ALT Alkaline Phosphatase Total Protein Albumin Serum , Qual Opiates Screen Negative Methadone Screen Negative Barbiturate Screen Negative Phencyclidine Screen Negative Ur Amphetamines Screen Negative MDMA (Ecstasy) Screen Negative Benzodiazepines Screen Negative Cocaine Screen Positive A* U Marijuana (THC) Screen Positive A* Active Medications Generic Name Dose Route Start Last Admin Trade Name Freq PRN Reason Stop Dose Admin Escitalopram Oxalate 20 mg 01/07/19 10:00 Lexapro - PO DAILY [facility] Levetiracetam 750 mg 01/06/19 10:00 01/06/19 10:22 Keppra - PO 750 mg BID [facility] Administration ASSESSMENT/PLAN: 28 y/o F with PMH epilepsy (dx 5 years ago at [place]), who presents to the ED c/o three episodes of witnessed seizures this afternoon. #Seizures -possible that the increase in seroquel led to her seizure -also possible that this is 2/2 noncompliance; will follow keppra level, or 2/2 cocaine use ( +utox) -Keppra 750 BID -Neuro consult: Dr. Cruz -oswaldo precautions -fall precautions -NPO for now #Depression -increased lexapro to 20 daily -holding seroquel for now -psych consulted #F/E/N no fluids required at this time continue to follow lytes NPO for now. #PPX DVT: SCD's #Dispo admit to tele Problem List - Problems (1) Seizure disorder Code(s): G40.909 - EPILEPSY, UNSP, NOT INTRACTABLE, WITHOUT STATUS EPILEPTICUS (2) Head ache Code(s): R51 - HEADACHE Qualifiers: Headache type: unspecified Headache chronicity pattern: unspecified pattern Intractability: intractable Qualified Code(s): R51 - Headache Visit type - Emergency Visit Emergency Visit: Yes ED Registration Date: 01/06/19 Care time: The patient presented to the Emergency Department on the above date and was hospitalized for further evaluation of their emergent condition. - New Patient This patient is new to me today: Yes Date on this admission: 01/06/19 - Critical Care Critical Care patient: No
--- NOTE | 2019-01-06 14:43 | PN ---
Progress Note (short form) - Note Progress Note: NEUROSURGERY CONSULT DICTATED h/o epilepsy dx initially 5 years ago at [facility]. Presented to the ED c/o three episodes of witnessed seizures yesterday afternoon. States that she was seen initially in our ED for chest discomfort. Was given decadron ? and sent home. States that her episodes of seizures x 3 happened when she got home. Each episode lasted 1-2 minutes. On the first occasion, boyfriend found her on the bathroom floor convulsing with urinary incontinence. The other two episodes happened when she was lying in her bed. Recent cocaine use 2 days ago as it "helps her study." Also missed her AM dose of keppra. Does not follow routinely with her neurologist. Has been on the same dose of keppra for this year. + post-ictal confusion, tongue bite without significant trauma. Currently with mild H/A. No fever, chills, recent infection, SOB, chest pain or changes in bowel function. last brain MRI "a few months ago" which reportedly found nothing new. 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
--- NOTE | 2019-01-06 15:41 | CONS ---
DATE OF CONSULTATION: DATE OF DICTATION: 01/06/2019 REQUESTING PHYSICIAN: Sofia Russ MD FOREIGN BROADCAST SPECIALIST: Negrito Garcia M.D., Neurosurgery CHIEF COMPLAINT: Seizure disorder. HISTORY OF PRESENT ILLNESS: Patient is a 28-year-old right handed female with a history of seizure disorder initially diagnosed 5 years ago, who presented to the ER with 3 episodes of witnessed seizures. The patient was initially diagnosed at [facility] and had undergone extensive imaging studies there including CBC and MRIs. She stated that her last MRI was a few months ago. It did not demonstrate anything new according to the patient. She presented to the emergency room, for some chest discomfort initially. She was given some medication and sent home. She subsequently experienced 3 episodes of seizure. She was found to have generalized seizure with urinary incontinence. The patient did state that she had used cocaine a couple days ago. She also smokes marijuana. She did miss her morning dose of Keppra 2 days ago. She has not followed with the medical doctor for the treatment of her seizure disorder. She currently has a mild headache, but no nausea, or vomiting. Her memory is somewhat blurry of the events. She has no fevers or chills or any recent infections. Currently she has no chest pain or shortness of breath. PAST MEDICAL HISTORY: Significant for generalized seizure disorder. MEDICATIONS: Lexapro and Keppra. ALLERGIES: There are no allergies to nonsteroidal antiinflammatory medication. 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 She does not drink alcohol. She smoked a quarter-pack of cigarettes a day. She does smoke marijuana and had recently used cocaine. FAMILY HISTORY: Noncontributory. REVIEW OF SYSTEMS: Was otherwise negative for major constitutional, head and neck, cardiovascular, pulmonary, gastrointestinal, genitourinary, endocrinological, neurological or psychological problems except for the above. PHYSICAL EXAMINATION: Vitals: On physical examination, temperature was 98, blood pressure is 124/68 with pulse rate of 68, O2 saturation is 100% room air. HEENT: Examination showed her to be normocephalic, atraumatic, anicteric. Neck: Supple with no lymphadenopathy, no carotid bruit. Heart: Coronary examination demonstrated regular rhythm without a murmur. Lungs: Are clear to auscultation bilaterally. Abdomen: Benign. Extremities: Examination shows no signs of DVT. Neurologic: She is awake and alert and oriented x3. Cranial nerve examination shows right sixth nerve palsy. Motor examination shows 4+/5 strength in the bilateral upper and lower extremities without drift. Sensory examination was intact to light touch and vibratory sensation. Deep tendon reflexes are 2+ throughout. There was no pathological long tract sign. Cerebellar examination demonstrated intact finger -to-nose examination bilaterally. Gait was not tested for safety reason. Laboratory examination shows a white blood cell count 8.3, hemoglobin was 12.3 and platelet count was 277,000. Serum sodium was 138 and potassium is 4.1. BUN is 18 and creatinine is 0.9 respectively. LFTs are normal. Albumin is 4.1. Urine toxicology shows positive for cocaine and marijuana. CT scans of the head from January 05 and January 06 were reviewed. There is evidence of left posterior parafalcine calcification consistent with a calcified meningioma. There is associated mass effect or edema. This was compared to a CT scan done in April 2018 and March 2018. IMPRESSION: 1. Left posterior frontal parafalcine calcified meningioma, versus calcified falx with no significant mass effect or edema. 2. Seizure disorder. 3. Cocaine and marijuana use. RECOMMENDATIONS: Patient presents with generalized seizure disorder. She usually gets about 2 seizures a week, but had 3 consecutive seizures 2 days ago. She had skipped a dose of Keppra and did use cocaine and marijuana recently. Patient was advised as to the adverse effect of using recreational drugs. She also was advised the importance of taking her regular Keppra medication to prevent seizure from occurring. The patient was also counseled to get a local neurologist, as she does not see a doctor regularly for her seizures anymore. She should obtain all prior medical records from [place], including the most recent MRI scan and review it with her medical neurologist. If the MRI has not been done over the past year, a new MRI of the brain with and without gadolinium will be recommended to rule out any potential occult temporal lobe lesions. The above was discussed with the patient at bedside. The patient did state affirmatively that she did has had the MRI done within the last few months and there were no significant changes or anything new. The patient expressed understanding of the treatment plan, as well as her role in taking care of her own health care condition. NEGRITO GARCIA M.D. [id number] MTDJesse
--- NOTE | 2019-01-06 15:48 | CON.PSY ---
Psychiatry Consult Chief Complaint: 28 year old female with PTSD<Seoizure Disorder, recently admitted to In [facility] Psych unit. seen for Psych eval. Reports she has been on [id number] po hs. Symptoms: reports: Anxiety - Previous Psychiatric Treatment Outpatient: Less than 6 mos ago Inpatient: Within the last 12 months - Previous Substance Abuse Treatment Outpatient: None Inpatient: None - Reason for Previous Treatment Reason for Previous Treatment: Major Depression, Past Traumatic Stress - Current Medications Current Medications: Active Medications Escitalopram Oxalate (Lexapro -) 20 mg PO DAILY [facility] Levetiracetam (Keppra -) 750 mg PO BID [facility] Last Admin: 01/06/19 10:22 Dose: 750 mg Quetiapine Fumarate (Seroquel -) 100 mg PO HS [facility] - Allergies Allergies: Allergies Allergy/AdvReac Type Severity Reaction Status Date / Time NSAIDS (Non-Steroidal Allergy Severe Swelling Verified 01/05/19 05:06 Anti-Inflamma ibuprofen [From Motrin] Allergy Verified 01/05/19 05:06 ketorolac [From Toradol] Allergy Verified 01/05/19 05:06 tramadol Allergy Verified 01/05/19 05:06 - Current Living Status Usual Living Arrangement: Alone - Current Mental Status Evaluation Appearance: Well Groomed Attitude: Cooperative - Affect Affect: Constrictive Appropriateness: Appropriate to Content - Mood Mood: Anxious - Speech/Language Expressive: Coherent - Psychomotor Activity Psychomotor Activity: Slowed - Thought Process Thought Process: Intact - Thought Content Hallucinations: Absent Delusions: Absent - Self Perception Self Perception: No Impairment - Cognition Attention: Alert Orientation: Time Memory, Immediate Recall: Intact Memory, Short Term: 3/3 Memory, Remote with Promptin/3 - Concentration Serial Sevens Intact: No Simple Calculations Intact: Yes - Abstraction Proverb Interpretation: Intact Judgement: Intact - Insight Insight: Intact - Impulse Control Impulse Control: Good Control - Suicidal Ideation Suicidal Ideation: No - Homicidal Ideation Homicidal Ideation: No Assessment/Plan 1) Add Serquel 100mg po hs. 2) continue with Lexapro.
--- NOTE | 2019-01-06 17:16 | PN ---
Progress Note (short form) - Note Progress Note: 28 year old female history of epilepsy , diagnoed five years ago. Patient did missed her keppra , few doses. She has four episode of seizure with tonic clonic activity and tongue bite. Patient is fully alert and was loaded with keppra and no seizure, and ct head was unremarkable. She aslo suffers from anxiety depression and currently not working. She was seen by psych today and antipsychotic medication was added. she has mild focal seizure this am, and patiient did not report to nursing but told nursing staff later on. NEUROLOGICAL EXAMINATION Alert oriented x 3 CN all intact, eomi, pupils reactive motor 5/5 all intact sensation is normal ct head small 1.2 cm meningioma in falx area. Assessment Breakthrough seizure due to noncompliance of medicaiton, less likely to be secondary to meningioma, I suspect small meningioma is a incidentla findings, concur with neurosurgery to follow up outpatient Plan suggest to increase dose of keppra to 1 gm po bid seizure precaution and need to comply was discussed with patient Thanking you so much Giovanny Cruz MD
--- NOTE | 2019-01-06 19:44 | PN ---
Teaching Attending Note Name of Resident: Sofia Russ ATTENDING PHYSICIAN STATEMENT I saw and evaluated the patient. I reviewed the resident's note and discussed the case with the resident. I agree with the resident's findings and plan as documented. SUBJECTIVE: Patient is comfortable with no acute distress. No further seizure activity. OBJECTIVE: Vital Signs Temperature 98 F 01/06/19 17:57 Pulse Rate 52 L 01/06/19 17:57 Respiratory Rate 18 01/06/19 17:57 Blood Pressure 100/60 01/06/19 17:57 O2 Sat by Pulse Oximetry (%) 100 01/06/19 09:00 HEENT: No Jaundice, eye redness or discharge, PERRLA. Normocephalic, atraumatic. Neck: Supple, nontender. No palpable adenopathy or thyromegaly. No JVD Chest: Good effort. Clear to auscultation and percussion. Heart: Regular. S1S2, no rub or murmur Abdomen: soft, nontender ,positive BS, No rebound or guarding. Normal bowel sounds. Ext: Peripheral pulses intact. No leg edema. Skin: Warm and dry. No petechiae, rash or ecchymosis. Neuro: CN 2-12 grossly intact. Psych: Appropriate mood and affect. CBCD WBC 8.3 K/mm3 (4.0-10.0) 01/06/19 06:00 RBC 4.14 M/mm3 (3.60-5.2) 01/06/19 06:00 Hgb 12.3 GM/dL (10.7-15.3) 01/06/19 06:00 Hct 36.1 % (32.4-45.2) 01/06/19 06:00 MCV 87.3 fl (80-96) 01/06/19 06:00 MCHC 34.2 g/dl (32.0-36.0) 01/06/19 06:00 RDW 14.9 % (11.6-15.6) 01/06/19 06:00 Plt Count 277 K/MM3 (134-434) 01/06/19 06:00 MPV 8.5 fl (7.5-11.1) 01/06/19 06:00 CMP Sodium 138 mmol/L (136-145) 01/06/19 06:00 Potassium 4.1 mmol/L (3.5-5.1) 01/06/19 06:00 Chloride 108 mmol/L (98-107) H 01/06/19 06:00 Carbon Dioxide 24 mmol/L (21-32) 01/06/19 06:00 Anion Gap 6 MMOL/L (8-16) L 01/06/19 06:00 BUN 18 mg/dL (7-18) 01/06/19 06:00 Creatinine 0.9 mg/dL (0.55-1.3) 01/06/19 06:00 Creat Clearance w eGFR > 60 (>60) 01/06/19 06:00 Random Glucose 91 mg/dL (74-106) 01/06/19 06:00 Calcium 7.9 mg/dL (8.5-10.1) L 01/06/19 06:00 Total Bilirubin 0.6 mg/dL (0.2-1) 01/05/19 13:50 AST 18 U/L (15-37) 01/05/19 13:50 ALT 15 U/L (13-61) 01/05/19 13:50 Alkaline Phosphatase 65 U/L (45-117) 01/05/19 13:50 Total Protein 8.3 g/dl (6.4-8.2) H 01/05/19 13:50 Albumin 4.1 g/dl (3.4-5.0) 01/05/19 13:50 Current Medications Generic Name Dose Route Start Last Admin Trade Name Freq PRN Reason Stop Dose Admin Escitalopram Oxalate 20 mg 01/07/19 10:00 Lexapro - PO DAILY [facility] Levetiracetam 1,000 mg 01/06/19 22:00 Keppra - PO BID [facility] Quetiapine Fumarate 100 mg 01/06/19 22:00 Seroquel - PO [facility] Home Medications Medication Instructions Recorded Escitalopram Oxalate [Lexapro -] 10 mg DAILY 01/05/19 Quetiapine Fumarate [Seroquel] 300 mg PO DAILY 01/05/19 levETIRAcetam [Keppra -] 750 mg BID 01/05/19 ASSESSMENT AND PLAN: Patient is 28 y/o F with PMH epilepsy (dx 5 years ago at [place]), who presents to the ED c/o three episodes of witnessed seizures this afternoon. #Acute Seizure activity o n Seroquel which was increased recently , patient takes it for sleep and helps her mood. On Keppra 750 BID, Neuro consult: Dr. Cruz appreciated, sz precautions, fall precautions, NPO for now #Depression continue lexapro increased to 20mg po daily, psych consulted DVT Px: SCD's if no further seizure will dc the patient.
[2019-01-06] MEDS ORDERED: QUEtiapine FUMARATE 50 MG TABLET ONE (21:48)
[2019-01-06] MEDS ORDERED: QUEtiapine FUMARATE 100 MG TABLET (FP) PO SCH (22:00)
[2019-01-06] MEDS: levETIRAcetam 500 MG TABLET (FP) PO SCH (22:04)
[2019-01-07 07:46] LABS: HEMOGLOBIN 12.9 GM/dL (10.7-15.3); MCH 30.8 pg (25.7-33.7); MCHC 34.8 g/dl (32.0-36.0); MEAN CELL VOLUME 88.7 fl (80-96); PLATELET COUNT 243 K/MM3 (134-434); RBC 4.17 M/mm3 (3.60-5.2); RDW 14.8 % (11.6-15.6); WHITE BLOOD COUNT 7.2 K/mm3 (4.0-10.0)
[2019-01-07 08:11] LABS: ANION GAP 6 MMOL/L (8-16); BLOOD UREA NITROGEN 16 mg/dL (7-18); CALCIUM 8.3 mg/dL (8.5-10.1); CHLORIDE 107 mmol/L (98-107); CO2 25 mmol/L (21-32); CREATININE 0.9 mg/dL (0.55-1.3); GLUCOSE,RANDOM 104 mg/dL (74-106); MAGNESIUM 2.3 mg/dL (1.8-2.4); PHOSPHOROUS 3.9 mg/dL (2.5-4.9); POTASSIUM 3.5 mmol/L (3.5-5.1); SODIUM 138 mmol/L (136-145)
[2019-01-07] MEDS ORDERED: ESCITALOPRAM OXALATE 20 MG TABLET (FP) PO SCH (10:00)
--- NOTE | 2019-01-07 10:00 | PN ---
Progress Note (short form) - Note Progress Note: 28 year old female history of epilepsy , diagnoed five years ago. Patient did missed her keppra , few doses. She has four episode of seizure with tonic clonic activity and tongue bite. Patient is fully alert and was loaded with keppra and no seizure, and ct head was unremarkable. She aslo suffers from anxiety depression and currently not working. She was seen by psych today and antipsychotic medication was added. No seizure and she is complaining of mild headache. NEUROLOGICAL EXAMINATION Alert oriented x 3 CN all intact, eomi, pupils reactive motor 5/5 all intact sensation is normal ct head small 1.2 cm meningioma in falx area. Assessment Breakthrough seizure due to noncompliance of medicaiton, less likely to be secondary to meningioma, I suspect small meningioma is a incidentla findings, concur with neurosurgery to follow up outpatient Plan continue keppra and outpatient follow up seizure precaution and need to comply was discussed with patient Thanking you so much Giovanny Cruz MD
[2019-01-07 10:24] VITALS: BP 90/54; PULSE 52; TEMP 98.1
[2019-01-07] MEDS: levETIRAcetam 500 MG TABLET (FP) PO SCH (11:31)
--- NOTE | 2019-01-07 13:50 | DS ---
Physical Exam: SUBJECTIVE: Patient seen and examined at bedside- no acute events overnight- patient did not have any seizures overnight and states she ifs feeling better; denies any headaches/dizziness/CP/SOB/N/V OBJECTIVE: Vital Signs Period Temp Pulse Resp BP Sys/Ho Pulse Ox Last 24 Hr 97.8 F-98.4 F 49-82 18-20 90-156/53-95 100 PHYSICAL EXAM GENERAL: The patient is awake, alert, and fully oriented, in no acute distress. HEAD: Normal with no signs of trauma. EYES: PEERLA; EOMI; no scleral icterus. ENT: Ears normal, nares patent, oropharynx clear without exudates, moist mucous membranes. NECK: no JVD; no lymphadenopathy LUNGS: CTA B/L; no rales, rhonchi or wheezing. HEART: Regular rate and rhythm, S1, S2 without murmur, rub or gallop. ABDOMEN: Soft, nontender, nondistended, normoactive bowel sounds, no guarding, no rebound, no hepatosplenomegaly, no masses. EXTREMITIES: 2+ pulses, warm, well-perfused, no edema. NEUROLOGICAL: Cranial nerves II through XII grossly intact. Normal speech, gait not observed. SKIN: Warm, dry, normal turgor, no rashes or lesions noted. LABS Laboratory Results - last 24 hr 01/07/19 01/07/19 05:30 05:30 WBC 7.2 RBC 4.17 Hgb 12.9 Hct 37.0 MCV 88.7 MCH 30.8 MCHC 34.8 RDW 14.8 Plt Count 243 MPV 9.0 Sodium 138 Potassium 3.5 Chloride 107 Carbon Dioxide 25 Anion Gap 6 L BUN 16 Creatinine 0.9 Creat Clearance w eGFR 75.11 Random Glucose 104 Calcium 8.3 L Phosphorus 3.9 Magnesium 2.3 HOSPITAL COURSE: Date of Admission:01/06/19 28 y/o F with PMH epilepsy (dx 5 years ago at [place]), who presents to the ED c/o three episodes of witnessed seizures this afternoon. States that she was seen initially in our ED this AM for chest discomfort. Was given decadron and sent home. States that her episodes of seizures x 3 happened when she got home. Each episode lasted 1-2 minutes. On the first occasion, boyfriend found her on the bathroom floor convulsing with urinary incontinence. The other two episodes happened when she was lying in her bed. For this reason, she came to the ED for evaluation. utox was positive for cocaine and marijuana. head CT was negative and MRI was significant for meningioma but no acute pathology. she was seen by neuro who increased her keppra dose to 1gram BID . she was also seen by psych who increased her lexapro dose aand decreased her seroquel dose from 300 to 100 as seroquel can lower seizure threshold. she was stable enough to be d/c' d and was d/c with neuro follow up Date of Discharge: 01/07/19 Minutes to complete discharge: 39 Discharge Summary Reason For Visit: STATUS EPILEPTICUS Current Active Problems Seizure disorder (Chronic) Condition: Stable - Instructions Diet, Activity, Other Instructions: You came to the ER after suffering multiple seizures at home. You were seen by a neurologist, neurosurgeon as well as a psychiatrist. We adjusted some of your medications and you did not have anymore seizures while in the hospital. You were stable to be discharged home We made some adjustments to your medications: Take Keppra 1000mg to be taken twice a day Take Lexapro 20mg to be taken daily Take Seroquel 100mg to be taken at night (we think this dosing may have caused your seizures) DO NOT INCREASE SEROQUEL DOSE DUE TO INCREASED SEIZURE ACTIVITY Please follow up with the neurologist, Dr. Lozada, within one week Please follow up with the psychiatrist, Dr. Jordan We are referring you to a primary care physician to follow up with within one week *if you have more seizures, begin to experience any chest pains, shortness of breath, nausea/vomiting please return to the emergency room immediately Referrals: Giovanny Cruz MD [Staff Physician] - 1 Week Hardik Mcdonough MD [Staff Physician] - 1 Week Alejandro Clemente MD [Staff Physician] - 1 Week Disposition: HOME - Home Medications Comprehensive Discharge Medication List: Ambulatory Orders Escitalopram Oxalate [Lexapro -] 20 mg PO DAILY 30 Days #30 tablet 01/07/19 Quetiapine Fumarate [Seroquel] 100 mg PO HS 30 Days #30 tablet 01/07/19 levETIRAcetam [Keppra -] 1,000 mg PO BID 30 Days #60 tablet 01/07/19 Problem List - Problems (1) Seizure disorder Code(s): G40.909 - EPILEPSY, UNSP, NOT INTRACTABLE, WITHOUT STATUS EPILEPTICUS (2) Head ache Code(s): R51 - HEADACHE Qualifiers: Qualified Code(s): R51 - Headache This patient is new to me today: Yes Date on this admission: 01/07/19 Emergency Visit: No Critical Care patient: No - Discharge Referral Referred to [facility] Med P.C.: No
--- NOTE | 2019-01-07 19:34 | PN ---
Teaching Attending Note Name of Resident: Sofia Russ ATTENDING PHYSICIAN STATEMENT I saw and evaluated the patient. I reviewed the resident's note and discussed the case with the resident. I agree with the resident's findings and plan as documented. SUBJECTIVE: OBJECTIVE: Vital Signs Temperature 98.1 F 01/07/19 09:00 Pulse Rate 52 L 01/07/19 09:00 Respiratory Rate 18 01/07/19 09:00 Blood Pressure 90/54 L 01/07/19 09:00 O2 Sat by Pulse Oximetry (%) 100 01/06/19 21:00 HEENT: No Jaundice, eye redness or discharge, PERRLA. Normocephalic, atraumatic. Neck: Supple, nontender. No palpable adenopathy or thyromegaly. No JVD Chest: Good effort. Clear to auscultation and percussion. Heart: Regular. S1S2, no rub or murmur Abdomen: soft, nontender ,positive BS, No rebound or guarding. Normal bowel sounds. Ext: Peripheral pulses intact. No leg edema. Skin: Warm and dry. No petechiae, rash or ecchymosis. Neuro: CN 2-12 grossly intact. Psych: Appropriate mood and affect. CBCD WBC 7.2 K/mm3 (4.0-10.0) 01/07/19 05:30 RBC 4.17 M/mm3 (3.60-5.2) 01/07/19 05:30 Hgb 12.9 GM/dL (10.7-15.3) 01/07/19 05:30 Hct 37.0 % (32.4-45.2) 01/07/19 05:30 MCV 88.7 fl (80-96) 01/07/19 05:30 MCHC 34.8 g/dl (32.0-36.0) 01/07/19 05:30 RDW 14.8 % (11.6-15.6) 01/07/19 05:30 Plt Count 243 K/MM3 (134-434) 01/07/19 05:30 MPV 9.0 fl (7.5-11.1) 01/07/19 05:30 CMP Sodium 138 mmol/L (136-145) 01/07/19 05:30 Potassium 3.5 mmol/L (3.5-5.1) 01/07/19 05:30 Chloride 107 mmol/L (98-107) 01/07/19 05:30 Carbon Dioxide 25 mmol/L (21-32) 01/07/19 05:30 Anion Gap 6 MMOL/L (8-16) L 01/07/19 05:30 BUN 16 mg/dL (7-18) 01/07/19 05:30 Creatinine 0.9 mg/dL (0.55-1.3) 01/07/19 05:30 Creat Clearance w eGFR 75.11 (>60) 01/07/19 05:30 Random Glucose 104 mg/dL (74-106) 01/07/19 05:30 Calcium 8.3 mg/dL (8.5-10.1) L 01/07/19 05:30 Total Bilirubin 0.6 mg/dL (0.2-1) 01/05/19 13:50 AST 18 U/L (15-37) 01/05/19 13:50 ALT 15 U/L (13-61) 01/05/19 13:50 Alkaline Phosphatase 65 U/L (45-117) 01/05/19 13:50 Total Protein 8.3 g/dl (6.4-8.2) H 01/05/19 13:50 Albumin 4.1 g/dl (3.4-5.0) 01/05/19 13:50 ASSESSMENT AND PLAN: Patient is 28 y/o F with PMH epilepsy (dx 5 years ago at [place]), who presents to the ED c/o three episodes of witnessed seizures this afternoon. #Acute Seizure activity o n Seroquel which was increased recently , patient takes it for sleep and helps her mood. On Keppra 750 BID, Neuro consult: Dr. Cruz appreciated, sz precautions, fall precautions, NPO for now #Depression continue lexapro increased to 20mg po daily, psych consulted DVT Px: SCD's if no further seizure will dc the patient.
== END 2019-01-07 13:44 | disposition home or self-care (01) | DRG 53 ==
LOC: JER 12:32 → JERBED 16:50 → J4W 22:54 → OBSVTOIN 01-06 11:38
PROVIDERS: ADMIT Internal Medicine; ATTEND Internal Medicine
DX: G40.911 Epilepsy, unspecified, intractable, with status epilepticus (principal); F14.10 Cocaine abuse, uncomplicated; F12.10 Cannabis abuse, uncomplicated; D32.0 Benign neoplasm of cerebral meninges; R51 Headache; F41.9 Anxiety disorder, unspecified; F17.210 Nicotine dependence, cigarettes, uncomplicated; F32.9 Major depressive disorder, single episode, unspecified
CPT/HCPCS: 36415; 70450-TC; 80048; 80053; 80177; 80307; 83735; 84100; 84703; 85025; 85027; 93005; 93010; 99284-25; G0378; J0131; J7030

== ENCOUNTER 2019-04-14 17:38 | Emergency (ER) | payer OTHER ==
[2019-04-14 18:38] VITALS: BP 106/64; PULSE 90; TEMP 98.1; BMI 25.0
--- NOTE | 2019-04-14 18:40 | PDOC ---
Rapid Medical Evaluation Chief Complaint: Lightheaded Time Seen by Provider: 04/14/19 18:36 Medical Evaluation: Allergies Allergy/AdvReac Type Severity Reaction Status Date / Time NSAIDS (Non-Steroidal Allergy Severe Swelling Verified 01/05/19 05:06 Anti-Inflamma ibuprofen [From Motrin] Allergy Verified 01/05/19 05:06 ketorolac [From Toradol] Allergy Verified 01/05/19 05:06 tramadol Allergy Verified 01/05/19 05:06 04/14/19 18:36 I have performed a brief in-person evaluation of this patient. The patient presents with a chief complaint of: dizziness x 3-4 days/ + seizure disorder, stopped taking Seraquel and Celexa, Tranzadone. in January Pertinent physical exam findings: alert/ oriented x 3, tired/ some congestion. I have ordered the following: UcG, UA The patient will proceed to the ED for further evaluation. 04/14/19 18:39 Discharge Disposition - Diagnosis Dizziness - Referrals - Patient Instructions - Post Discharge Activity
[2019-04-14] MEDS ORDERED: SODIUM CHLORIDE 1,000 ML IV STA (20:16)
[2019-04-14] MEDS ORDERED: MECLIZINE HCL 25 MG TABLET (FP) PO ONE (20:21)
[2019-04-14] MEDS ORDERED: MECLIZINE HCL 25 MG TABLET (FP) ONE (20:50)
[2019-04-14 21:01] LABS: BASO % 0.7 % (0-2.0); EOS % 0.1 % (0-4.5); HEMATOCRIT 37.7 % (32.4-45.2); HEMOGLOBIN 12.8 GM/dL (10.7-15.3); LYMPH % 27.7 % (8-40); MCH 30.1 pg (25.7-33.7); MCHC 33.8 g/dl (32.0-36.0); MEAN PLT VOLUME 8.1 fl (7.5-11.1); MONO % 8.3 % (3.8-10.2); NEUT % 63.2 % (42.8-82.8); PLATELET COUNT 313 K/MM3 (134-434); RBC 4.24 M/mm3 (3.60-5.2); RDW 14.1 % (11.6-15.6); WHITE BLOOD COUNT 8.3 K/mm3 (4.0-10.0)
[2019-04-14 21:15] LABS: EPI CELLS 2.8 /HPF (0-5/HPF); HYALINE CASTS 4 /lpf (0-8); PH,URINE 6.5 (5.0-8.0); URINE APPEARANCE CLEAR; URINE BACTERIA 28.1 /hpf (NEGATIVE); URINE BILIRUBIN NEGATIVE (NEGATIVE); URINE COLOR YELLOW; URINE GLUCOSE (UA) NEGATIVE (NEGATIVE); URINE KETONE TRACE (NEGATIVE); URINE LEUK ESTERASE TRACE (NEGATIVE); URINE NITRITE NEGATIVE (NEGATIVE); URINE PROTEIN NEGATIVE (NEGATIVE); URINE RBC 4 /hpf (0-4); URINE UROBILINOGEN 0.2 mg/dL (0.2-1.0); URINE WBC 4 /hpf (0-5)
[2019-04-14 21:17] LABS: HCG,QUALITATIVE URINE Negative
[2019-04-14 21:22] LABS: BILIRUBIN,TOTAL 0.5 mg/dL (0.2-1); BLOOD UREA NITROGEN 11.4 mg/dL (7-18); CALCIUM 9.3 mg/dL (8.5-10.1); CREATININE 0.9 mg/dL (0.55-1.3); MAGNESIUM 2.4 mg/dL (1.8-2.4); POTASSIUM 4.1 mmol/L (3.5-5.1); TOT PROT 7.7 g/dl (6.4-8.2)
[2019-04-14] MEDS ORDERED: levETIRAcetam 500 MG TABLET (FP) PO ONE ×2 (21:23→21:58)
--- NOTE | 2019-04-14 22:54 | PDOC ---
History of Present Illness - General Chief Complaint: Lightheaded Stated Complaint: DIZZINESS Time Seen by Provider: 04/14/19 18:36 History Source: Patient Exam Limitations: No Limitations Past History - Past Medical History Allergies/Adverse Reactions: Allergies Allergy/AdvReac Type Severity Reaction Status Date / Time NSAIDS (Non-Steroidal Allergy Severe Swelling Verified 04/14/19 18:38 Anti-Inflamma ibuprofen [From Motrin] Allergy Verified 04/14/19 18:38 ketorolac [From Toradol] Allergy Verified 04/14/19 18:38 tramadol Allergy Verified 04/14/19 18:38 Home Medications: Ambulatory Orders levETIRAcetam [Keppra -] 1,000 mg PO BID 30 Days #60 tablet 01/07/19 Meclizine HCl 25 mg PO Q6H PRN #28 tablet 04/14/19 levETIRAcetam [Keppra -] 1,500 mg PO BID #180 tablet 04/14/19 Asthma: No Cancer: No Cardiac Disorders: No COPD: No Diabetes: No Disorders: Yes (REOCCURENT UTI) HTN: No Seizures: Yes Thyroid Disease: No - Reproductive History (#): 3 Para: 1 Cervical CA: No Dysfunctional Uterine Bleeding: No Ectopic : No Endometrial CA: No Polycystic Ovaries: No Therapeutic (s) & number: Yes (1) Tubal Ligation: No Spontaneous : 0 - Immunization History Td Vaccination: Yes TDAP Vaccination: Yes Immunization Up to Date: Yes - Suicide/Smoking/Psychosocial Hx Smoking Status: Yes Smoking History: Never smoked Have you smoked in the past 12 months: No Number of Cigarettes Smoked Daily: 10 If you are a former smoker, when did you quit?: 60 DAYS AGO Information on smoking cessation initiated: No 'Breaking Loose' booklet given: 01/21/14 Hx Alcohol Use: No Drug/Substance Use Hx: No Substance Use Type: None, Marijuana Hx Substance Use Treatment: No *Physical Exam - Vital Signs Last Vital Signs Temp Pulse Resp BP Pulse Ox 98.1 F 90 18 106/64 98 04/14/19 18:35 04/14/19 18:35 04/14/19 18:35 04/14/19 18:35 04/14/19 18:35 - Physical Exam General Appearance: No: Apparent Distress HEENT: positive: EOMI, SATHYA, Other (no nystamgus noted) Respiratory/Chest: positive: Lungs Clear, Normal Breath Sounds. negative: Respiratory Distress Cardiovascular: positive: Regular Rhythm, Regular Rate, S1, S2. negative: Murmur Gastrointestinal/Abdominal: positive: Normal Bowel Sounds, Soft. negative: Tender, Distended, Guarding, Rebound Integumentary: positive: Normal Color Neurologic: positive: javascript developer II-XII NML intact, Fully Oriented, Alert, Normal Mood/ Affect, Normal Response, Motor Strength 5/5, Finger to Nose (normal). negative : Facial Droop, Sensory Deficit, Confused, Disoriented ED Treatment Course - LABORATORY CBC & Chemistry Diagram: 04/14/19 20:48 04/14/19 20:48 - ADDITIONAL ORDERS Additional order review: Laboratory Results 04/14/19 04/14/19 21:01 20:48 Sodium 140 Potassium 4.1 Chloride 107 Carbon Dioxide 26 Anion Gap 7 L BUN 11.4 Creatinine 0.9 Est GFR (CKD-EPI)AfAm 101.56 Est GFR (CKD-EPI)NonAf 87.63 Random Glucose 87 Calcium 9.3 Magnesium 2.4 Total Bilirubin 0.5 AST 19 ALT 15 Alkaline Phosphatase 65 Total Protein 7.7 Albumin 4.0 Urine Color Yellow Urine Appearance Clear Urine pH 6.5 D Ur Specific [place] 1.019 Urine Protein Negative Urine Glucose (UA) Negative Urine Ketones Trace H Urine Blood Negative Urine Nitrite Negative Urine Bilirubin Negative Urine Urobilinogen 0.2 Ur Leukocyte Esterase Trace Urine WBC (Auto) 4 Urine RBC (Auto) 4 Urine Casts (Auto) 4 U Epithel Cells (Auto) 2.8 Urine Bacteria (Auto) 28.1 Urine HCG, Qual Negative 04/14/19 20:48 RBC 4.24 MCV 89.0 MCHC 33.8 RDW 14.1 MPV 8.1 Neutrophils % 63.2 Lymphocytes % 27.7 Monocytes % 8.3 Eosinophils % 0.1 Basophils % 0.7 - Medications Given in the ED: ED Medications Discontinued Medications Generic Name Dose Route Start Last Admin Trade Name Freq PRN Reason Stop Dose Admin Sodium Chloride 1,000 mls @ 1,000 mls/hr 04/14/19 20:16 04/14/19 20:55 Normal Saline - IV 04/14/19 21:15 1,000 mls/hr ASDIR STA Administration Levetiracetam 1,500 mg 04/14/19 21:23 04/14/19 21:59 Keppra - PO 04/14/19 21:24 1,500 mg ONCE ONE Administration Meclizine HCl 50 mg 04/14/19 20:21 04/14/19 20:55 Antivert - PO 04/14/19 20:22 50 mg ONCE ONE Administration Medical Decision Making - Medical Decision Making 28 yo F hx of epilepsy (on Keppra 1000 mg BID), anemia, PTSD, bipolar presents c /o vertigo x 4 weeks, worse with head movements, each episode lasting a few seconds. Also mentions having increase in frequency of her seizures the past month, having around 3 seizures a week. States tried calling her neurologist, Dr. Cruz, but appointment was not until next month so came to ED. Patient used to be on Lexapro and Seroquel but states meds were stopped a month ago by her psychiatrist, Dr. Nelsno (vertigo was going on prior to meds stopping). Patient used to smoke cocaine but stopped 2 months ago; only smokes marijuana now. Denies other drug use. Denies fever, sob, cp, abd pain, visual or gait changes, trauma from seizures, numbness/tingling/weakness of extremities. Patient states she is compliant with her seizure meds Labs done and unremarkable UCG negative Vertigo - sounds peripheral, possible BPPV? - given Meclizine Re: seizures, patient last saw her neurologist in December 2018 when she was admitted for seizures; has not seen him since as states she has been very busy; patient had CT head done that time which was negative Spoke to neuro, Dr. Cruz, who states to increase Keppra dose to 1500 mg BID and patient can f/u with him tomorrow 04/14/19 22:48 *DC/Admit/Observation/Transfer Diagnosis at time of Disposition: Seizure BPV (benign positional vertigo) Qualifiers: Laterality: unspecified laterality Qualified Code(s): H81.10 - Benign paroxysmal vertigo, unspecified ear - Discharge Dispostion Disposition: HOME Condition at time of disposition: Stable Decision to Admit order: No - Prescriptions Prescriptions: levETIRAcetam [Keppra -] 1,500 mg PO BID #180 tablet Meclizine HCl 25 mg PO Q6H PRN #28 tablet PRN Reason: dizziness - Referrals Referrals: Giovanny Crzu MD [Staff Physician] - Juancho Hadley MD [Staff Physician] - - Patient Instructions Printed Discharge Instructions: DI for Seizure Disorder -- Adult, Benign Paroxysmal Positional Vertigo Additional Instructions: Thank you for choosing [facility]. It was a pleasure taking care of you. Your seizure medication dose was increased to 1500 mg twice a day Please see your neurologist tomorrow Take Meclizine as needed for vertigo You were referred to ENT doctor for further evaluation Return to the Emergency Department if your symptoms worsen or persist or have other concerning symptoms. - Post Discharge Activity
== END 2019-04-14 23:05 | disposition home or self-care (01) ==
LOC: JER 17:38
PROC: 3E0337Z Introduction of Electrolytic and Water Balance Substance into Peripheral Vein, Percutaneous Approach (ICD-10-PCS; principal; 2019-04-14)
DX: H81.10 Benign paroxysmal vertigo, unspecified ear (principal); G40.909 Epilepsy, unspecified, not intractable, without status epilepticus; F43.10 Post-traumatic stress disorder, unspecified; F31.9 Bipolar disorder, unspecified; D64.9 Anemia, unspecified
CPT/HCPCS: 36415; 80053; 80177; 81003; 83735; 84703; 85025; 99282-25; J7030

== ENCOUNTER 2019-05-03 12:12 | Emergency (ER) | payer OTHER ==
[2019-05-03 12:27] VITALS: BMI 22.6
--- NOTE | 2019-05-03 12:47 | PDOC ---
History of Present Illness - General Chief Complaint: Seizure Stated Complaint: Seizure Time Seen by Provider: 05/03/19 12:29 - History of Present Illness Initial Comments: 28yo F with PMH of seizures, anemia, bipolar disorder complaining of thoracic back pain x 4 days. Patient does not recall an inciting event- no injury or fall. The pain has steadily gotten worse such that she has been bedridden for the past two days. She describes the pain as "sharp" and it is rated 8/10, worsening anytime she moves in a particular way. Patient denies a history of back pain. She has taken tylenol, up to 15 tablets per day, with minimal relief of her symptoms. She has also tried hot baths and epsom salt which will lessen her pain but only for a short time. Denies saddle anesthesia, significant weight loss, history of cancer or IVDU, or urinary/fecal incontinence. Patient has had poor po intake because of her pain. Yesterday patient reports that she moved in a certain way when her pain suddenly worsened causing her to become lightheaded and have a syncopal episode. Last night her pain was so severe she tried some cocaine but this did not help her pain. No fever, chills, chest pain , or shortness of breath. Past History - Past Medical History Allergies/Adverse Reactions: Allergies Allergy/AdvReac Type Severity Reaction Status Date / Time NSAIDS (Non-Steroidal Allergy Severe Swelling Verified 05/03/19 12:27 Anti-Inflamma ibuprofen [From Motrin] Allergy Verified 05/03/19 12:27 ketorolac [From Toradol] Allergy Verified 05/03/19 12:27 tramadol Allergy Verified 05/03/19 12:27 Home Medications: Ambulatory Orders Meclizine HCl 25 mg PO Q6H PRN #28 tablet 04/14/19 levETIRAcetam [Keppra -] 1,500 mg PO BID #180 tablet 04/14/19 Cyclobenzaprine HCl [Flexeril 10 mg] 10 mg PO BID PRN #10 tablet 05/03/19 Lidocaine 5% Patch [Lidoderm -] 1 patch TP DAILY #7 patch 05/03/19 Meclizine HCl 25 mg PO Q6H PRN #28 tablet 05/03/19 Sulfamethoxazole/Trimethoprim [Bactrim Ds Tablet] 1 each PO BID #10 tablet 05/03 Asthma: No Cancer: No Cardiac Disorders: No COPD: No Diabetes: No Disorders: Yes (REOCCURENT UTI) HTN: No Seizures: Yes (pain triggered) Thyroid Disease: No - Reproductive History (#): 3 Para: 1 Cervical CA: No Dysfunctional Uterine Bleeding: No Ectopic : No Endometrial CA: No Polycystic Ovaries: No Therapeutic (s) & number: Yes (1) Tubal Ligation: No Spontaneous : 0 - Immunization History Td Vaccination: Yes TDAP Vaccination: Yes Immunization Up to Date: Yes - Suicide/Smoking/Psychosocial Hx Smoking Status: Yes Smoking History: Unknown if ever smoked Have you smoked in the past 12 months: No Number of Cigarettes Smoked Daily: 10 If you are a former smoker, when did you quit?: 60 DAYS AGO Information on smoking cessation initiated: No 'Breaking Loose' booklet given: 01/21/14 Hx Alcohol Use: No Drug/Substance Use Hx: No Substance Use Type: None, Marijuana Hx Substance Use Treatment: No Review of Systems - Review of Systems Comments:: Constitutional: no fever, no night sweats HEENT: no throat pain, no dysphagia Cardiovascular: no chest pain, no palpitations Respiratory: no cough, no shortness of breath Gastrointestinal: no abdominal pain, no nausea Genitourinary: no dysuria, no frequency Musculoskeletal: +back pain, no leg pain Skin: no rash, no itching Neurologic: no headache, +weakness *Physical Exam - Vital Signs Last Vital Signs Temp Pulse Resp BP Pulse Ox 97.6 F 85 16 101/83 99 05/03/19 12:15 05/03/19 12:15 05/03/19 12:15 05/03/19 12:15 05/03/19 12:39 - Physical Exam Comments: General: Awake, alert, and fully oriented, laying in position, crying out in pain upon some physical exam maneuvers Head: No signs of trauma Eyes: EOMI, sclera anicteric ENT: Dry mucus membranes Neck: Normal ROM, supple Lungs: Lungs clear, Normal breath sounds Cardio: Regular rhythm, S1 and S2 present Abdomen: Soft, nontender Extremities: Normal range of motion, Distal pulses present SKIN: Warm, Dry, normal turgor Neurologic: Cranial nerves II through XII intact. Normal speech, sensation, strength, coordination. Antalgic gait. 2+ reflexes bilateral patellar tendon. Back: Tender to palpation in thoracic area, equally both paravertebral and midline, no step-offs/deformities/fluctuance; no overlying wound or lesion; positive straight leg test bilaterally ED Treatment Course - LABORATORY CBC & Chemistry Diagram: 05/03/19 13:45 05/03/19 13:45 Medical Decision Making - Medical Decision Making Patient is not in Bed 2 Appreciated triage note; patient denies having a seizure. Last seizure was one month ago. 05/03/19 12:51 28yo F with PMH of seizures, anemia, bipolar disorder complaining of thoracic back pain x 4 days. DDX including but not limited muscle strain/spasm, cauda equina, UTI, electrolyte abnormality, anemia Flexeril, Lidocaine patch, Fluids Labs EKG 05/03/19 13:57 CBC WBC 9.9 K/mm3 (4.0-10.0) 05/03/19 13:45 RBC 4.09 M/mm3 (3.60-5.2) 05/03/19 13:45 Hgb 12.3 GM/dL (10.7-15.3) 05/03/19 13:45 Hct 36.0 % (32.4-45.2) 05/03/19 13:45 MCV 88.2 fl (80-96) 05/03/19 13:45 MCH 30.1 pg (25.7-33.7) 05/03/19 13:45 MCHC 34.2 g/dl (32.0-36.0) 05/03/19 13:45 RDW 13.7 % (11.6-15.6) 05/03/19 13:45 Plt Count 334 K/MM3 (134-434) 05/03/19 13:45 MPV 7.7 fl (7.5-11.1) 05/03/19 13:45 Absolute Neuts (auto) 7.4 K/mm3 (1.5-8.0) 05/03/19 13:45 Neutrophils % 75.3 % (42.8-82.8) 05/03/19 13:45 Lymphocytes % 16.5 % (8-40) D 05/03/19 13:45 Monocytes % 7.4 % (3.8-10.2) 05/03/19 13:45 Eosinophils % 0.3 % (0-4.5) D 05/03/19 13:45 Basophils % 0.5 % (0-2.0) 05/03/19 13:45 Nucleated RBC % 0 % (0-0) 05/03/19 13:45 No anemia or leukocytosis CMP Sodium 141 mmol/L (136-145) 05/03/19 13:45 Potassium 4.1 mmol/L (3.5-5.1) 05/03/19 13:45 Chloride 110 mmol/L (98-107) H 05/03/19 13:45 Carbon Dioxide 24 mmol/L (21-32) 05/03/19 13:45 Anion Gap 7 MMOL/L (8-16) L 05/03/19 13:45 BUN 11.7 mg/dL (7-18) 05/03/19 13:45 Creatinine 0.8 mg/dL (0.55-1.3) 05/03/19 13:45 Est GFR (CKD-EPI)AfAm 117.10 05/03/19 13:45 Est GFR (CKD-EPI)NonAf 101.04 05/03/19 13:45 Random Glucose 95 mg/dL (74-106) 05/03/19 13:45 Calcium 9.0 mg/dL (8.5-10.1) 05/03/19 13:45 Total Bilirubin 0.5 mg/dL (0.2-1) 05/03/19 13:45 AST 12 U/L (15-37) L 05/03/19 13:45 ALT 13 U/L (13-61) 05/03/19 13:45 Alkaline Phosphatase 73 U/L (45-117) 05/03/19 13:45 Total Protein 7.8 g/dl (6.4-8.2) 05/03/19 13:45 Albumin 3.4 g/dl (3.4-5.0) 05/03/19 13:45 Electrolytes unremarkable test negative UA positive for infection. Will treat with bactrim. Patient denies urinary symptoms but this may be contributing to her back pain. However, I believe the pain is more consistent with a muscle spasm. No red flag back pain signs. Will defer imaging at this time. EKG: rate 76, QTc 414, NSR Patient with improvement in back pain. Was encouraged to get up and walk every five minutes. Patient given exercises to help alleviate her pain. She states that this has helped. Discharged with flexeril *DC/Admit/Observation/Transfer Diagnosis at time of Disposition: Back pain Qualifiers: Back pain location: thoracic back pain Chronicity: acute Back pain laterality: bilateral Qualified Code(s): M54.6 - Pain in thoracic spine - Discharge Dispostion Disposition: HOME Condition at time of disposition: Stable - Prescriptions Prescriptions: Cyclobenzaprine HCl [Flexeril 10 mg] 10 mg PO BID PRN #10 tablet PRN Reason: Pain Lidocaine 5% Patch [Lidoderm -] 1 patch TP DAILY #7 patch Meclizine HCl 25 mg PO Q6H PRN #28 tablet PRN Reason: dizziness Sulfamethoxazole/Trimethoprim [Bactrim Ds Tablet] 1 each PO BID #10 tablet - Referrals - Patient Instructions Printed Discharge Instructions: DI for Thoracic Back Pain Additional Instructions: You came to the ED for back pain. Lab work did not show acute pathology. It is important to follow up with your primary care doctor this week to discuss this visit and further assess your symptoms. Urinalysis shows you have a urinary tract infection. Prescriptions sent to your pharmacy. Take as instructed. Do not drive or take care of small children when taking this medicine. You can take [id number] tylenol or motrin for pain. Follow the instructions on the medication bottle. Do not take more than as specified on the bottle as this increases the risk of overdose. Immediate medical attention is required if you have back pain and : numbness in the genital or rectal area, loss of bowel or bladder control, difficulty with urination; fever, unexplained weight loss, or other signs of illness or infection. If you think you are having an emergency, call for emergency medical services or present to the emergency department right away. - Post Discharge Activity
[2019-05-03] MEDS ORDERED: LIDOCAINE 5% TOPICAL PATCH TP ONE (13:24)
[2019-05-03] MEDS ORDERED: CYCLOBENZAPRINE HCL 10 MG TABLET (FP) PO ONE (13:25)
[2019-05-03] MEDS ORDERED: SODIUM CHLORIDE 1,000 ML IV STA (13:26)
[2019-05-03 13:53] LABS: BASO % 0.5 % (0-2.0); EOS % 0.3 % (0-4.5); HEMOGLOBIN 12.3 GM/dL (10.7-15.3); LYMPH % 16.5 % (8-40); MCH 30.1 pg (25.7-33.7); MCHC 34.2 g/dl (32.0-36.0); MEAN CELL VOLUME 88.2 fl (80-96); MEAN PLT VOLUME 7.7 fl (7.5-11.1); MONO % 7.4 % (3.8-10.2); NEUT % 75.3 % (42.8-82.8); PLATELET COUNT 334 K/MM3 (134-434); RBC 4.09 M/mm3 (3.60-5.2); RDW 13.7 % (11.6-15.6); WHITE BLOOD COUNT 9.9 K/mm3 (4.0-10.0)
[2019-05-03] MEDS ORDERED: LIDOCAINE 5% TOPICAL PATCH ONE (13:55)
[2019-05-03] MEDS ORDERED: CYCLOBENZAPRINE HCL 10 MG TABLET (FP) ONE (13:55)
[2019-05-03 14:00] LABS: EPI CELLS 5.3 /HPF (0-5/HPF); HCG,QUALITATIVE URINE Negative; HYALINE CASTS 5 /lpf (0-8); URINE APPEARANCE CLEAR; URINE BACTERIA 456.1 /hpf (NEGATIVE); URINE BILIRUBIN NEGATIVE (NEGATIVE); URINE COLOR YELLOW; URINE GLUCOSE (UA) NEGATIVE (NEGATIVE); URINE KETONE NEGATIVE (NEGATIVE); URINE LEUK ESTERASE 2+ (NEGATIVE); URINE NITRITE NEGATIVE (NEGATIVE); URINE PROTEIN NEGATIVE (NEGATIVE); URINE UROBILINOGEN 0.2 mg/dL (0.2-1.0); URINE WBC 44 /hpf (0-5)
[2019-05-03 14:25] LABS: ALBUMIN 3.4 g/dl (3.4-5.0); ALK PHOS 73 U/L (45-117); ANION GAP 7 MMOL/L (8-16); BILIRUBIN,TOTAL 0.5 mg/dL (0.2-1); BLOOD UREA NITROGEN 11.7 mg/dL (7-18); CHLORIDE 110 mmol/L (98-107); CO2 24 mmol/L (21-32); CREATININE 0.8 mg/dL (0.55-1.3); GLUCOSE,RANDOM 95 mg/dL (74-106); POTASSIUM 4.1 mmol/L (3.5-5.1); SGOT/AST 12 U/L (15-37); SGPT/ALT 13 U/L (13-61); SODIUM 141 mmol/L (136-145); TOT PROT 7.8 g/dl (6.4-8.2)
[2019-05-03 14:34] LABS: URINE RBC 3 /hpf (0-4)
--- NOTE | 2019-05-03 17:21 | PDOC ---
Documentation entered by Tom Gavin SCRIBE, acting as scribe for Michael Rodrigez MD. Michael Rodrigez MD: This documentation has been prepared by the Romaine russo Elijah, SCRIBE, under my direction and personally reviewed by me in its entirety. I confirm that the documentation accurately reflects all work, treatment, procedures, and medical decision making performed by me. Attending Attestation - Resident Resident Name: Amna Castillo - ED Attending Attestation I have performed the following: I have examined & evaluated the patient, The case was reviewed & discussed with the resident, I agree w/resident's findings & plan - HPI HPI: 05/03/19 14:39 Patient is a 28 year old female with a significant past medical history of seizures and hemorrhagic ovarian cysts who presents to the ED with non- radiating lower back pain over the last x4 days. Patient reports that the pain as 10/10 and that it has become progressively worse over the last two days she has not left bed. Patient reports the pain worsens with exertion, eating and deep inhalation and associates some tingling in both legs. Patient also has taken 15, 325 mg Tylenols a day over the last four days. Denies fever, chils, CP, SOB, Abdominal Pain Allergies: NSID, Tramadol Social History: Tobacco User (3 Cigarettes a day), Marijuana User - Physicial Exam PE: 05/03/19 14:34 GENERAL: The patient is awake, alert, and fully oriented, Nontoxic - in no acute distress. HEAD: Normocephalic, atraumatic. EYES: extraocular movements intact, sclera anicteric, conjunctiva clear. ENT: Normal voice, Moist mucous membranes. NECK: Normal range of motion, supple LUNGS: Breath sounds equal, clear to auscultation bilaterally. No wheezes, no rhonchi, no rales. HEART: Regular rate and rhythm, normal S1 and S2 without murmur, rub or gallop. ABDOMEN: Soft, nontender, No guarding, no rebound. No CVA tenderness BACK: No cervical/thoracic midline ttp, diffuse ttp in paraspinal muslces with hypertrophy on L side, no stepoffis, ecchymosis/induration/fluctuance. EXTREMITIES: Normal range of motion, no edema, moving all 4 ext spntaneously and symmetric NEUROLOGICAL: No facial assymetry, Normal speech, sensation symmetric in uper/ lower extremities PSYCH: Normal mood, normal affect, denies SI SKIN: Warm, Dry, normal turgor, - Medical Decision Making 05/03/19 14:15 28y F hx of seizures, presents with worsening atrauamtic nonradiating lower back pain worse for the past 4 days without f/c, ivdu, bladder/bowel incontinence [id number] acetaminophen x 4 days. on exam pt appears uncomfortable with ttp to lower back paraspinal muscles in lumbar region no red flags/neuro sx will treat with lidoderm patch, flexeril will ck acetaminophen level to r/o unintentional OD 05/03/19 18:04 pt feeling improved labs reviewed and normal - neg tylenol level, normal lfts ambulating around will dc with lidoderm patch/flexeril pmd fu return precuations were discussed Heart Score/ECG Review - ECG Impressions Comment:: 05/03/19 15:15 Twelve-lead EKG was performed and reviewed by me. There is normal sinus rhythm with a normal rate. Rate of 76 The axis is normal. The intervals are normal.
[2019-05-03 18:53] VITALS: BP 98/56; PULSE 97
[2019-05-03 18:54] VITALS: TEMP 98
[2019-05-03] MEDS ORDERED: LIDOCAINE PATCH REMOVAL MC SCH (22:00)
--- NOTE | 2019-05-04 08:32 | EKG ---
Test Reason : Blood Pressure : / mmHG Vent. Rate : 076 BPM Atrial Rate : 076 BPM P-R Int : 150 ms QRS Dur : 076 ms QT Int : 368 ms P-R-T Axes : 045 048 025 degrees QTc Int : 414 ms NORMAL SINUS RHYTHM ANTERIOR INFARCT , AGE UNDETERMINED ABNORMAL ECG WHEN COMPARED WITH ECG OF 05-JAN-2019 13:54, ANTERIOR INFARCT IS NOW PRESENT Confirmed by CELINE GATICA, CHRISTIAN ([id number]) on 05/04/2019 8:32:04 AM Referred By: Confirmed By:CHRISTIAN BERGER MD
== END 2019-05-03 18:49 | disposition home or self-care (01) ==
LOC: JER 12:12
PROC: 3E0337Z Introduction of Electrolytic and Water Balance Substance into Peripheral Vein, Percutaneous Approach (ICD-10-PCS; principal; 2019-05-03)
DX: M54.6 Pain in thoracic spine (principal); Z87.891 Personal history of nicotine dependence
CPT/HCPCS: 36415; 80053; 80307; 81003; 84703; 85025; 87086; 87186; 93005; 93010; 96360; 99283-25; J7030

== ENCOUNTER 2019-08-29 23:52 | Emergency (ER) | payer SELFPAY ==
[2019-08-30 00:33] VITALS: BMI 28.3
--- NOTE | 2019-08-30 01:07 | PDOC ---
Attending Attestation - Resident Resident Name: Lon Richardson - ED Attending Attestation I have performed the following: I have examined & evaluated the patient, The case was reviewed & discussed with the resident, I agree w/resident's findings & plan, Exceptions are as noted - HPI HPI: 08/30/19 01:05 28-year-old female brought in by ambulance after reported seizure HPI patient is noncompliant with her seizure medication. However she did state that she had a recent positive test and felt she was about 6 weeks . - Physicial Exam PE: 08/30/19 01:06 Well-nourished well-developed 28-year-old female who is alert Head no scalp lacerations Neck no midline cervical tenderness appreciated Lungs are clear to auscultation CVS was regular rate and rhythm Abdomen was flat, nontender Extremities no edema, no deformities Neuro alert and conversant Psych anxious/odd affect 08/30/19 01:10 - Medical Decision Making 08/30/19 01:34 28-year-old female past medical history of epilepsy, posttraumatic stress disorder, major depression states she had a witnessed seizure tonight. Upon arrival she was alert and had no tongue trauma. She is not taking any antiseizure medication currently She also has a history of drug abuse last using cocaine 2 days ago She said she had a SZS yesterday and hit her head labs pending,bhcg pending SO Dr Aguila 08/30/19 01:35 08/30/19 01:43
[2019-08-30 01:26] LABS: BASO % 0.9 % (0-2.0); EOS % 0.7 % (0-4.5); HEMATOCRIT 39.8 % (32.4-45.2); HEMOGLOBIN 13.2 GM/dL (10.7-15.3); LYMPH % 37.2 % (8-40); MCH 29.3 pg (25.7-33.7); MCHC 33.2 g/dl (32.0-36.0); MEAN CELL VOLUME 88.2 fl (80-96); MEAN PLT VOLUME 9.2 fl (7.5-11.1); MONO % 9.1 % (3.8-10.2); NEUT % 52.1 % (42.8-82.8); PLATELET COUNT 269 K/MM3 (134-434); RBC 4.51 M/mm3 (3.60-5.2); RDW 14.7 % (11.6-15.6)
--- NOTE | 2019-08-30 01:50 | PDOC ---
History of Present Illness <Stephenie Ho - Last Filed: 08/30/19 04:20> - General History Source: Patient, Old Records Exam Limitations: No Limitations - History of Present Illness Initial Comments: HPI: 28 y/o female presenting to [facility] ER via EMS reportedly s/p two tonic clonic seizures this evening witnessed by her boyfriend. Longest episode lasted approx. 1 min. Pt endorses urinary incontinence. Pt has a h/o epilepsy managed with Keppra; pt endorses missing several doses a week because things are stressful. Also experienced two similar seizures yesterday. Believes she fell and hit her head. Has had a mild headache all day. Attempted relief with OTC Tylenol. Pt then reported she has had similar bifrontal headaches over the course of this week. Has attempted relief with like 6 Tylenol. States these headaches are associated by occasional episodes of blurry vision. Does not believe these headaches are similar to her chronic migraines. Pt further complaining of bilateral lower quadrant abdominal pain that started after her second seizure tonight. Described as intermittent and similar to contractions. Was told she was at Urgent Care last week via urine test. Denies vaginal bleeding. Pt follows with a neurologist in [place]. She cannot recall his name. Last office visit was 4 months ago. Of note, the pt has been evaluated in this department several times for seizures. The last several Keppra Level measurements have resulted undetected. Social Hx: - EtOH: Denies - Daily cigarette smoker - Last used Marijuana and Cocaine (smokes; denies ever using needles) two days ago (Thursday). OBGYN Hx: - LMP 14 Jul 2019 - G 4 (if today), T 1, P 0, A 2, L 1 - H/o STDs Syphilis at age 18 s/p Penicillin treatment Medical Hx: - Epilepsy managed w/ Keppra - Iron deficiency anemia - Polysubstance abuse - PTSD - Major depressive disorder Review of Systems: In addition to that documented in the HPI above, the additional ROS was obtained : Constitutional- Endorses fever of 102 two days ago that resolved after Tylenol. Denies chills Head- Denies vision changes ENMT- Denies sore throat CV- Denies chest pain Resp- Endorses nonproductive cough. Denies SOB GI- Endorses episodes of vomiting over past several days. Denies diarrhea - Endorses increased urinary frequency. Denies painful urination, hematuria, vaginal bleeding, or vaginal discharge MSK- Reports fall yesterday Skin- Denies new rashes Neuro- Denies new numbness or tingling or weakness Endocrine- Denies polyuria Heme- Denies bleeding or bruising Physical Examination: Constitutional- Adult female in no acute distress but mild obvious discomfort. Malodorous. Average body habitus. Found semi-fowlers on hospital bed. Answered all questions appropriately and completely. Head- Normocephalic. No obvious external signs of trauma. No Finn's sign or Raccoon eyes. Eyes- PERRL. EOMI. Sclerae white. Conjunctiva moist and not injected. Ears- Hearing grossly intact. Nose- No nasal discharge. Throat- Poor dentition. No tongue trauma. Neck- Supple, trachea is midline. No c-spine tenderness or step off. Cardiovascular / Chest- Regular rate and regular rhythm. No murmur, rubs, clicks , or gallops. Peripheral pulses- radial pulses full. Respiratory- Breathing unlabored. Equal chest rise and fall. Clear to auscultation bilaterally. No stridor, no wheezing, no rhonchi. Gastrointestinal- abdomen is tender in LLQ and RLQ without rebound, guarding, or grimace. Pt did not pause conversation during exam. Globally, abdomen is soft and non-distended. No hepatosplenemegaly. No pulsatile masses. No overlying skin lesions or obvious signs of trauma. Neuro- Alert and oriented x4. Moving all four extremities spontaneously. No nuchal rigidity. Skin- Warm, dry, and intact. Psych- Affect- intermittently tearful. Mood- normal. Speech was non-labored, non-pressured. MDM: *Reviewed vital signs, nursing notes, and prior visit documentation (if available). 28 y/o female presenting with multiple chief complaints. Seizures w/ poor adherence to AEDs. Bilateral lower abd pain with UPreg positive at . Urinary frequency. Headaches w/ blurry vision and recent fall. Recent polysubstance abuse. Afebrile. Vitals unremarkable for hypotension or tachycardia. Physical exam as described above. Emergent transvaginal U/S performed to evaluate for ectopic before Beta Quant was obtained. U/S unremarkable for IUP. Possible hemorrhagic ovarian cyst. Beta Quant subsequently found to be negative. HCT subsequently ordered to evaluate for ICH given reported trauma. Suspect seizures are secondary to medication noncompliance. Loaded pt with IV Keppra. UA remarkable for nitrites, leukocyte esterase, and pyuria. Suspect likely acute cystitis. 30 Aug 2019 02:00 AM Pt signed out to resident Dr. Ho after she was verbally appraised of the pts HPI, current ED course, and plan of management. Will f/u pending HCT and abx coverage for possible acute cystitis. Lon Richardson M.D., PGY2 Emergency Medicine Resident <Lon Richardson - Last Filed: 08/31/19 14:28> - General Chief Complaint: Seizure Stated Complaint: SEIZURE Time Seen by Provider: 08/30/19 00:27 Past History <Stephenie Ho - Last Filed: 08/30/19 04:20> - Past Medical History Asthma: No Cancer: No Cardiac Disorders: No COPD: No Diabetes: No Disorders: Yes (REOCCURENT UTI) HTN: No Seizures: Yes (pain triggered) Thyroid Disease: No - Reproductive History (#): 3 Para: 1 Cervical CA: No Dysfunctional Uterine Bleeding: No Ectopic : No Endometrial CA: No Polycystic Ovaries: No Therapeutic (s) & number: Yes (1) Tubal Ligation: No Spontaneous : 0 - Immunization History Td Vaccination: Yes TDAP Vaccination: Yes Immunization Up to Date: Yes - Psycho Social/Smoking Cessation Hx Smoking Status: Yes Smoking History: Current every day smoker Have you smoked in the past 12 months: Yes Number of Cigarettes Smoked Daily: 7 If you are a former smoker, when did you quit?: 60 DAYS AGO Information on smoking cessation initiated: No 'Breaking Loose' booklet given: 01/21/14 Hx Alcohol Use: No Drug/Substance Use Hx: No Substance Use Type: None, Marijuana Hx Substance Use Treatment: No <Lon Richardson - Last Filed: 08/31/19 14:28> - Past Medical History Allergies/Adverse Reactions: Allergies Allergy/AdvReac Type Severity Reaction Status Date / Time NSAIDS (Non-Steroidal Allergy Severe Swelling Verified 05/03/19 12:27 Anti-Inflamma ibuprofen [From Motrin] Allergy Verified 05/03/19 12:27 ketorolac [From Toradol] Allergy Verified 05/03/19 12:27 tramadol Allergy Verified 05/03/19 12:27 Home Medications: Ambulatory Orders Meclizine HCl 25 mg PO Q6H PRN #28 tablet 04/14/19 levETIRAcetam [Keppra -] 1,500 mg PO BID #180 tablet 04/14/19 Cyclobenzaprine HCl [Flexeril 10 mg] 10 mg PO BID PRN #10 tablet 05/03/19 Lidocaine 5% Patch [Lidoderm -] 1 patch TP DAILY #7 patch 05/03/19 Meclizine HCl 25 mg PO Q6H PRN #28 tablet 05/03/19 Sulfamethoxazole/Trimethoprim [Bactrim Ds Tablet] 1 each PO BID #10 tablet 05/03 Cephalexin Monohydrate [Keflex -] 500 mg PO BID #14 capsule 08/30/19 *Physical Exam - Vital Signs Last Vital Signs Temp Pulse Resp BP Pulse Ox 98.3 F 68 18 113/83 100 08/30/19 00:00 08/30/19 00:00 08/30/19 00:00 08/30/19 00:00 08/30/19 00:00 <Stephenie Ho - Last Filed: 08/30/19 04:20> - Vital Signs Last Vital Signs Temp Pulse Resp BP Pulse Ox 98.3 F 68 18 113/83 100 08/30/19 00:00 08/30/19 00:00 08/30/19 00:00 08/30/19 00:00 08/30/19 00:00 <Lon Richardson - Last Filed: 08/31/19 14:28> ED Treatment Course - LABORATORY CBC & Chemistry Diagram: 08/30/19 01:00 08/30/19 00:56 - ADDITIONAL ORDERS Additional order review: Laboratory Results 08/30/19 08/30/19 08/30/19 01:50 01:00 01:00 PT with INR 11.20 INR 0.95 PTT (Actin FS) 33.0 Sodium Potassium Chloride Carbon Dioxide Anion Gap BUN Creatinine Est GFR (CKD-EPI)AfAm Est GFR (CKD-EPI)NonAf Random Glucose Calcium Phosphorus Magnesium Total Bilirubin AST ALT Alkaline Phosphatase Total Protein Albumin Lipase Beta HCG, Quant Urine Color Yellow Urine Appearance Cloudy Urine pH 7.0 Ur Specific [place] 1.023 Urine Protein Negative Urine Glucose (UA) Negative Urine Ketones Negative Urine Blood Negative Urine Nitrite Positive H Urine Bilirubin Negative Urine Urobilinogen 0.2 Ur Leukocyte Esterase 3+ H Urine WBC (Auto) 220 Urine RBC (Auto) 3 Urine Casts (Auto) 4 U Epithel Cells (Auto) 4.4 Urine Bacteria (Auto) 5925.1 Acetaminophen Blood Type Antibody Screen 08/30/19 08/30/19 08/30/19 00:59 00:56 00:56 PT with INR INR PTT (Actin FS) Sodium Potassium Chloride Carbon Dioxide Anion Gap BUN Creatinine Est GFR (CKD-EPI)AfAm Est GFR (CKD-EPI)NonAf Random Glucose Calcium Phosphorus 3.3 Magnesium 1.9 Total Bilirubin AST ALT Alkaline Phosphatase Total Protein Albumin Lipase 127 Beta HCG, Quant Urine Color Urine Appearance Urine pH Ur Specific [place] Urine Protein Urine Glucose (UA) Urine Ketones Urine Blood Urine Nitrite Urine Bilirubin Urine Urobilinogen Ur Leukocyte Esterase Urine WBC (Auto) Urine RBC (Auto) Urine Casts (Auto) U Epithel Cells (Auto) Urine Bacteria (Auto) Acetaminophen <2.0 Blood Type O POSITIVE Antibody Screen Negative 08/30/19 08/30/19 00:56 00:56 PT with INR INR PTT (Actin FS) Sodium 140 Potassium 4.1 Chloride 110 H Carbon Dioxide 23 Anion Gap 7 L BUN 10.1 Creatinine 0.8 Est GFR (CKD-EPI)AfAm 117.10 Est GFR (CKD-EPI)NonAf 101.04 Random Glucose 86 Calcium 9.3 Phosphorus Magnesium Total Bilirubin 0.1 L AST 14 L ALT 9 L Alkaline Phosphatase 54 Total Protein 6.7 Albumin 3.6 Lipase Beta HCG, Quant < 1.0 Urine Color Urine Appearance Urine pH Ur Specific [place] Urine Protein Urine Glucose (UA) Urine Ketones Urine Blood Urine Nitrite Urine Bilirubin Urine Urobilinogen Ur Leukocyte Esterase Urine WBC (Auto) Urine RBC (Auto) Urine Casts (Auto) U Epithel Cells (Auto) Urine Bacteria (Auto) Acetaminophen Blood Type Antibody Screen 08/30/19 01:00 RBC 4.51 MCV 88.2 MCHC 33.2 RDW 14.7 MPV 9.2 D Neutrophils % 52.1 D Lymphocytes % 37.2 D Monocytes % 9.1 Eosinophils % 0.7 D Basophils % 0.9 - Medications Given in the ED: ED Medications Discontinued Medications Generic Name Dose Route Start Last Admin Trade Name Freq PRN Reason Stop Dose Admin Levetiracetam 1,000 mg 08/30/19 02:00 08/30/19 02:45 Keppra Injection - IVPB 08/30/19 02:01 1,000 mg ONCE ONE Administration <Stephenie Ho - Last Filed: 08/30/19 04:20> - LABORATORY CBC & Chemistry Diagram: 08/30/19 01:00 08/30/19 00:56 - ADDITIONAL ORDERS Additional order review: Laboratory Results 08/30/19 01:00 PTT (Actin FS) 33.0 08/30/19 01:00 RBC 4.51 MCV 88.2 MCHC 33.2 RDW 14.7 MPV 9.2 D Neutrophils % 52.1 D Lymphocytes % 37.2 D Monocytes % 9.1 Eosinophils % 0.7 D Basophils % 0.9 - RADIOLOGY Radiology Studies Ordered: Category Date Time Status TRANSVAGINAL ULTRASOUND US [US] Stat Ultrasound 08/30/19 00:32 Taken Radiograph Interpretation: Transvaginal U/S: THIS IS A PRELIMINARY REPORT FROM [facility] [employer] [facility] DATE OF SERVICE: 2019-08-30 01:03:09 IMAGES: 40 EXAM: Pelvic ultrasound with Doppler study of the bilateral ovaries HISTORY: Positive test. Lower abdominal pain. Evaluate for ectopic. COMPARISON: None. FINDINGS: Normal uterus. Normal homogeneous endometrial complex measuring 5.2 mm in thickness. No intrauterine gestation is identified. No gestational sac, yolk sac, or pole. There is a complex possibly hemorrhagic left ovarian cyst measuring 2.1 cm x 1.4 cm x 1.9 cm. There is positive Doppler blood flow to the left ovary. Normal right ovary with positive Doppler blood flow. No free fluid. Follow-up recommended to distinguish between very early normal intrauterine gestation and failed gestation. If pain persists, follow-up also recommended to exclude the possibility of ectopic which is not detected at this time. THIS DOCUMENT HAS BEEN ELECTRONICALLY SIGNED Hilario Johnson MD 08/30/2019 01:45 EST <Lon Richardson - Last Filed: 08/31/19 14:28> Discharge - Discharge Information Problems reviewed: Yes - Admission No <Stephenie Ho - Last Filed: 08/30/19 04:20> - Discharge Information Problems reviewed: Yes <Lon Richardson - Last Filed: 08/31/19 14:28> - Discharge Information Clinical Impression/Diagnosis: Seizure, UTI (urinary tract infection) Condition: Stable Disposition: HOME - Additional Discharge Information Prescriptions: Cephalexin Monohydrate [Keflex -] 500 mg PO BID #14 capsule - Follow up/Referral Referrals: Prieto Kline MD [Staff Physician] - [facility] [place] [facility] [place] Group] - Patient Discharge Instructions Patient Printed Discharge Instructions: DI for Seizure Disorder -- Adult, DI for Urinary Tract Infection (UTI) Additional Instructions: You were seen in the ED for reported seizure and urinary frequency. You were found to have a uti The rest of your labwork and imaging were unremarkable. You should follow up with your Family Doctor You have a referral for [facility], please follow up within 1 week Take your Keppra Return to the ED if you experience worsening symptoms, headache, loss of consciousness or repeat seizure.
[2019-08-30 01:53] LABS: MAGNESIUM 1.9 mg/dL (1.8-2.4); PHOSPHOROUS 3.3 mg/dL (2.5-4.9)
[2019-08-30] MEDS ORDERED: levETIRAcetam 500 MG/5 ML INJECTION VIAL IVPB ONE ×2 (02:00→02:35)
[2019-08-30 02:02] LABS: INR 0.95 (0.83-1.09); PROTHROMBIN TIME (PATIENT) 11.2 SEC (9.7-13.0)
[2019-08-30 02:07] LABS: ALBUMIN 3.6 g/dl (3.4-5.0); BILIRUBIN,TOTAL 0.1 mg/dL (0.2-1); BLOOD UREA NITROGEN 10.1 mg/dL (7-18); CALCIUM 9.3 mg/dL (8.5-10.1); CREATININE 0.8 mg/dL (0.55-1.3); POTASSIUM 4.1 mmol/L (3.5-5.1); TOT PROT 6.7 g/dl (6.4-8.2)
[2019-08-30 02:20] LABS: EPI CELLS 4.4 /HPF (0-5/HPF); HYALINE CASTS 4 /lpf (0-8); URINE APPEARANCE CLOUDY; URINE BACTERIA 5925.1 /hpf (NEGATIVE); URINE BILIRUBIN NEGATIVE (NEGATIVE); URINE COLOR YELLOW; URINE GLUCOSE (UA) NEGATIVE (NEGATIVE); URINE KETONE NEGATIVE (NEGATIVE); URINE LEUK ESTERASE 3+ (NEGATIVE); URINE NITRITE POSITIVE (NEGATIVE); URINE PROTEIN NEGATIVE (NEGATIVE); URINE RBC 3 /hpf (0-4); URINE UROBILINOGEN 0.2 mg/dL (0.2-1.0); URINE WBC 220 /hpf (0-5)
[2019-08-30] MEDS ORDERED: CEPHALEXIN MONOHYDRATE 500 MG CAPSULE (UD) PO ONE (04:10)
[2019-08-30] MEDS ORDERED: CEPHALEXIN MONOHYDRATE 250 MG CAPSULE (FP) ONE (04:34)
[2019-08-30 06:00] VITALS: BP 112/76; PULSE 62; TEMP 98
--- NOTE | 2019-08-30 09:21 | EKG ---
Test Reason : Blood Pressure : / mmHG Vent. Rate : 077 BPM Atrial Rate : 077 BPM P-R Int : 150 ms QRS Dur : 074 ms QT Int : 386 ms P-R-T Axes : 065 049 042 degrees QTc Int : 436 ms NORMAL SINUS RHYTHM WITH SINUS ARRHYTHMIA POSSIBLE LEFT ATRIAL ENLARGEMENT ANTERIOR INFARCT (CITED ON OR BEFORE 30-OCT-2018) ABNORMAL ECG WHEN COMPARED WITH ECG OF 03-MAY-2019 13:37, NO SIGNIFICANT CHANGE WAS FOUND Confirmed by MD Elif, Bhavin ([id number]) on 08/30/2019 9:20:55 AM Referred By: Confirmed By:Bhavin Asencio MD
== END 2019-08-30 04:42 | disposition home or self-care (01) ==
LOC: JER 23:52
DX: G40.909 Epilepsy, unspecified, not intractable, without status epilepticus (principal); N39.0 Urinary tract infection, site not specified; D50.9 Iron deficiency anemia, unspecified; F32.9 Major depressive disorder, single episode, unspecified; F19.10 Other psychoactive substance abuse, uncomplicated; F17.210 Nicotine dependence, cigarettes, uncomplicated; Z91.14 Patient's other noncompliance with medication regimen; Z88.6 Allergy status to analgesic agent
CPT/HCPCS: 36415; 70450-TC; 76830-TC; 80053; 80307; 81003; 83690; 83735; 84100; 84702; 85025; 85610; 85730; 86850; 86900; 86901; 87086; 87186; 93005; 93010; 99285-25

== ENCOUNTER 2020-08-31 06:40 | Inpatient (IN) | payer OTHER ==
[2020-08-31] MEDS ORDERED: levETIRAcetam 500 MG/5 ML INJECTION VIAL IVPB ONE ×2 (06:45→06:54)
[2020-08-31] MEDS ORDERED: LORazepam 2 MG/ML SDV VIAL ONE (06:58)
[2020-08-31 07:21] LABS: BASO % 0.5 % (0-2.0); EOS % 0.7 % (0-4.5); HEMATOCRIT 35.3 % (32.4-45.2); HEMOGLOBIN 11.5 GM/dL (10.7-15.3); LYMPH % 31.4 % (8-40); MCH 28.9 pg (25.7-33.7); MCHC 32.6 g/dl (32.0-36.0); MEAN CELL VOLUME 88.6 fl (80-96); MEAN PLT VOLUME 8.5 fl (7.5-11.1); MONO % 10.4 % (3.8-10.2); PLATELET COUNT 244 K/MM3 (134-434); RBC 3.98 M/mm3 (3.60-5.2); WHITE BLOOD COUNT 7.7 K/mm3 (4.0-10.0)
[2020-08-31 07:47] LABS: CHLORIDE 107 mmol/L (98-107); POTASSIUM 3.7 mmol/L (3.5-5.1); SODIUM 140 mmol/L (136-145)
[2020-08-31 07:50] LABS: ALBUMIN 3.3 g/dl (3.4-5.0); ANION GAP 7 MMOL/L (8-16); BLOOD UREA NITROGEN 13.4 mg/dL (7-18); CALCIUM 8.7 mg/dL (8.5-10.1); CO2 26 mmol/L (21-32)
[2020-08-31 07:51] LABS: GLUCOSE,RANDOM 81 mg/dL (74-106)
[2020-08-31 07:53] LABS: CREATININE 0.8 mg/dL (0.55-1.3); SGOT/AST 13 U/L (15-37); SGPT/ALT 9 U/L (13-61)
[2020-08-31 07:55] LABS: BILIRUBIN,TOTAL 0.2 mg/dL (0.2-1); TOT PROT 7.1 g/dl (6.4-8.2)
[2020-08-31 07:56] LABS: ALK PHOS 54 U/L (45-117)
[2020-08-31 08:00] LABS: OPIATES, URI NEGATIVE ng/ml (CUTOFF=300)
[2020-08-31 08:01] LABS: COCAINE, UR NEGATIVE ng/ml (CUTOFF=300); PHENCYCLIDINE,URINE NEGATIVE ng/ml (CUTOFF=25); URINE AMPHETAMINES NEGATIVE ng/ml (CUTOFF=500); URINE BARBITURATES NEGATIVE ng/ml (CUTOFF=200)
[2020-08-31 08:02] LABS: METHADONE, UR NEGATIVE ng/ml (CUTOFF=300)
[2020-08-31 08:04] LABS: URINE BENZODIAZEPINES POSITIVE ng/ml (CUTOFF=200)
[2020-08-31 08:27] LABS: EPI CELLS >36 /uL (0-25.1); HYALINE CASTS 1 /uL (0-3.1); PH,URINE 6.5 (5.0-8.0); URINE APPEARANCE CLOUDY; URINE BACTERIA 1828 /uL (0-1359); URINE BILIRUBIN NEGATIVE (NEGATIVE); URINE COLOR YELLOW; URINE GLUCOSE (UA) NEGATIVE (NEGATIVE); URINE KETONE NEGATIVE (NEGATIVE); URINE LEUK ESTERASE TRACE (NEGATIVE); URINE NITRITE NEGATIVE (NEGATIVE); URINE PROTEIN NEGATIVE (NEGATIVE); URINE RBC 2 /uL (0-23.9); URINE UROBILINOGEN 0.2 mg/dL (0.2-1.0); URINE WBC 137 /uL (0-25.8)
[2020-08-31] MEDS ORDERED: SODIUM CHLORIDE 0.9% 500 ML INFUS.BAG IV ONE (10:24)
[2020-08-31] MEDS: DEXTROSE 5%-0.45% SALINE 1,000 ML IV SCH (11:19)
[2020-08-31] MEDS ORDERED: ACETAMINOPHEN 1000 MG/100 ML VIAL (NON FORMULARY) IVPB ONE ×2 (18:00→19:03)
[2020-08-31 18:49] VITALS: BMI 21.2
[2020-08-31] MEDS ORDERED: PRAMIPEXOLE DIHYDROCHLORIDE 0.125 MG TABLET PO ONE (19:45)
[2020-08-31] MEDS ORDERED: VALPROATE SODIUM 500 MG/5 ML VIAL IVPB ONE (19:45)
[2020-08-31] MEDS ORDERED: KETOROLAC TROMETHAMINE 15 MG/ML VIAL IVPUSH ONE (21:55)
[2020-08-31] MEDS ORDERED: levETIRAcetam 500 MG/5 ML INJECTION VIAL IVPB SCH (22:00)
[2020-08-31] MEDS ORDERED: PRAMIPEXOLE DIHYDROCHLORIDE 0.125 MG TABLET PO SCH (22:00)
[2020-08-31] MEDS ORDERED: traMADol HCL 50 MG TABLET PO ONE (22:18)
[2020-08-31] MEDS ORDERED: ACETAMINOPHEN WITH CODEINE 300MG/30MG TABLET PO ONE (23:00)
[2020-09-01] MEDS: DEXTROSE 5%-0.45% SALINE 1,000 ML IV SCH ×2 (00:37→12:30)
[2020-09-01] MEDS: PRAMIPEXOLE DIHYDROCHLORIDE 0.125 MG TABLET PO SCH ×2 (06:05→13:09)
[2020-09-01 07:27] LABS: BASO % 0.4 % (0-2.0); EOS % 0.9 % (0-4.5); HEMATOCRIT 36.9 % (32.4-45.2); HEMOGLOBIN 11.9 GM/dL (10.7-15.3); LYMPH % 41.2 % (8-40); MCH 28.9 pg (25.7-33.7); MCHC 32.1 g/dl (32.0-36.0); MEAN CELL VOLUME 90.1 fl (80-96); MEAN PLT VOLUME 9.2 fl (7.5-11.1); MONO % 9.4 % (3.8-10.2); NEUT % 48.1 % (42.8-82.8); PLATELET COUNT 255 K/MM3 (134-434); RDW 14.3 % (11.6-15.6)
[2020-09-01 07:51] LABS: POTASSIUM 4.6 mmol/L (3.5-5.1)
[2020-09-01 07:55] LABS: CALCIUM 8.6 mg/dL (8.5-10.1)
[2020-09-01 07:56] LABS: ALBUMIN 3.2 g/dl (3.4-5.0); BLOOD UREA NITROGEN 4.2 mg/dL (7-18); MAGNESIUM 2.2 mg/dL (1.8-2.4)
[2020-09-01 07:59] LABS: CREATININE 0.7 mg/dL (0.55-1.3); PHOSPHOROUS 3.1 mg/dL (2.5-4.9)
[2020-09-01 08:00] LABS: BILIRUBIN,TOTAL 0.5 mg/dL (0.2-1); TOT PROT 7.1 g/dl (6.4-8.2)
[2020-09-01] MEDS ORDERED: CYANOCOBALAMIN (VITAMIN B-12) 1000 MCG/1 ML VIAL IM ONE (08:53)
[2020-09-01] MEDS ORDERED: ENOXAPARIN NA (PORCINE) 40 MG/0.4 ML DISP.SYRIN SQ SCH (10:00)
[2020-09-01] MEDS ORDERED: MULTIVITAMINS (DAILY MVI) TABLET (FP) PO SCH (10:00)
[2020-09-01] MEDS ORDERED: CHOLECALCIFEROL (VIT D3) 1,000 UNIT (25 MCG) TABLET PO SCH (10:00)
[2020-09-01] MEDS ORDERED: CALCIUM (OYSTER SHELL) 500 MG TABLET (FP) PO SCH (10:00)
[2020-09-01 11:13] VITALS: BP 98/48; PULSE 68; TEMP 97.7
[2020-09-01] MEDS ORDERED: PRAMIPEXOLE DIHYDROCHLORIDE 0.125 MG TABLET PO SCH ×2 (14:50→22:00)
[2020-09-01] MEDS ORDERED: SUMAtriptan SUCCINATE 50 MG TABLET PO SCH (15:00)
[2020-09-01] MEDS ORDERED: SUMAtriptan SUCCINATE 50 MG TABLET PO PRN (17:00)
[2020-09-01] MEDS ORDERED: VALPROATE SODIUM 250 MG/5 ML UNIT DOSE CUP PO SCH (22:00)
== END 2020-09-01 18:06 | disposition home or self-care (01) | DRG 53 ==
LOC: JER 06:40 → JERBED 11:13 → J4W 15:00
DX: G40.909 Epilepsy, unspecified, not intractable, without status epilepticus (principal); E46 Unspecified protein-calorie malnutrition; F32.9 Major depressive disorder, single episode, unspecified; N39.0 Urinary tract infection, site not specified; F41.9 Anxiety disorder, unspecified; G43.909 Migraine, unspecified, not intractable, without status migrainosus; G25.81 Restless legs syndrome; Z76.5 Malingerer [conscious simulation]; Z91.14 Patient's other noncompliance with medication regimen
CPT/HCPCS: 36415; 70450-TC; 80053; 80164; 80307; 81003; 82306; 82550; 82607; 82728; 82962; 83540; 83550; 83605; 83735; 84100; 84443; 84702; 84703; 85025; 93005; 93010; 99285-25; C9803; J0131; U0003

== ENCOUNTER 2020-09-24 03:44 | Emergency (ER) | payer OTHER ==
[2020-09-24 03:51] VITALS: PULSE 79; BMI 21.2
[2020-09-24] MEDS ORDERED: SODIUM CHLORIDE 1,000 ML IV STA (04:20)
[2020-09-24] MEDS ORDERED: LIDOCAINE 5% TOPICAL PATCH TP ONE (04:20)
[2020-09-24] MEDS ORDERED: LIDOCAINE 5% TOPICAL PATCH ONE (04:43)
[2020-09-24 04:49] LABS: BASO % 0.4 % (0-2.0); EOS % 0.3 % (0-4.5); HEMATOCRIT 36.9 % (32.4-45.2); LYMPH % 18.7 % (8-40); MCH 29.1 pg (25.7-33.7); MCHC 32.5 g/dl (32.0-36.0); MEAN CELL VOLUME 89.5 fl (80-96); MEAN PLT VOLUME 8.8 fl (7.5-11.1); MONO % 10.7 % (3.8-10.2); NEUT % 69.9 % (42.8-82.8); PLATELET COUNT 250 K/MM3 (134-434); RBC 4.12 M/mm3 (3.60-5.2); RDW 14.5 % (11.6-15.6); WHITE BLOOD COUNT 10.9 K/mm3 (4.0-10.0)
[2020-09-24 05:35] LABS: CALCIUM 8.1 mg/dL (8.5-10.1)
[2020-09-24 05:36] LABS: BLOOD UREA NITROGEN 14.9 mg/dL (7-18)
[2020-09-24 05:39] LABS: CREATININE 0.8 mg/dL (0.55-1.3)
[2020-09-24 05:41] LABS: BILIRUBIN,TOTAL 0.1 mg/dL (0.2-1); TOT PROT 6.5 g/dl (6.4-8.2)
[2020-09-24] MEDS ORDERED: ACETAMINOPHEN 500 MG TABLET (FP) PO ONE (06:33)
[2020-09-24] MEDS ORDERED: ACETAMINOPHEN 325 MG TABLET (FP) ONE ×2 (06:37→06:39)
[2020-09-24 06:45] VITALS: BP 98/51; TEMP 98.8
[2020-09-24 07:13] LABS: HCG,QUALITATIVE URINE Negative
[2020-09-24 07:54] LABS: EPI CELLS >36 /uL (0-25.1); HYALINE CASTS 13 /uL (0-3.1); URINE APPEARANCE CLOUDY; URINE BACTERIA 2725 /uL (0-1359); URINE BILIRUBIN NEGATIVE (NEGATIVE); URINE COLOR YELLOW; URINE GLUCOSE (UA) NEGATIVE (NEGATIVE); URINE KETONE NEGATIVE (NEGATIVE); URINE LEUK ESTERASE TRACE (NEGATIVE); URINE NITRITE NEGATIVE (NEGATIVE); URINE PROTEIN NEGATIVE (NEGATIVE); URINE RBC 12 /uL (0-23.9); URINE UROBILINOGEN 0.2 mg/dL (0.2-1.0); URINE WBC 263 /uL (0-25.8)
[2020-09-24] MEDS ORDERED: VALPROATE SODIUM 250 MG/5 ML UNIT DOSE CUP PO ONE (08:03)
[2020-09-24] MEDS ORDERED: diazePAM 2 MG TABLET PO ONE (08:03)
[2020-09-24] MEDS ORDERED: LIDOCAINE PATCH REMOVAL MC SCH (22:00)
== END 2020-09-24 10:37 | disposition home or self-care (01) ==
LOC: JER 03:44
PROC: 3E0337Z Introduction of Electrolytic and Water Balance Substance into Peripheral Vein, Percutaneous Approach (ICD-10-PCS; principal; 2020-09-24)
DX: G40.89 Other seizures (principal); R07.9 Chest pain, unspecified
CPT/HCPCS: 36415; 70450-TC; 71045-TC-FY; 71101-TC-LT-FY; 80053; 80164; 81003; 84703; 85025; 93005; 93010; 99285-25

== ENCOUNTER 2020-11-22 10:54 | Inpatient (IN) | payer OTHER ==
[2020-11-22] MEDS ORDERED: SODIUM CHLORIDE 1,000 ML IV STA (11:05)
[2020-11-22] MEDS ORDERED: ACETAMINOPHEN 1000 MG/100 ML VIAL (NON FORMULARY) IVPB ONE (11:05)
[2020-11-22] MEDS ORDERED: levETIRAcetam 500 MG/5 ML INJECTION VIAL IVPB ONE ×2 (11:14→11:36)
[2020-11-22 11:49] LABS: BASO % 0.5 % (0-2.0); EOS % 0.6 % (0-4.5); HEMATOCRIT 41.5 % (32.4-45.2); HEMOGLOBIN 14.1 GM/dL (10.7-15.3); LYMPH % 33.1 % (8-40); MCH 29.5 pg (25.7-33.7); MCHC 33.9 g/dl (32.0-36.0); MEAN CELL VOLUME 87.2 fl (80-96); MEAN PLT VOLUME 8.2 fl (7.5-11.1); MONO % 9.7 % (3.8-10.2); NEUT % 56.1 % (42.8-82.8); PLATELET COUNT 362 K/MM3 (134-434); RBC 4.77 M/mm3 (3.60-5.2); RDW 14.9 % (11.6-15.6); WHITE BLOOD COUNT 7.9 K/mm3 (4.0-10.0)
[2020-11-22] MEDS ORDERED: LORazepam 2 MG/ML SDV VIAL IVPUSH ONE ×3 (11:49→21:33)
[2020-11-22] MEDS ORDERED: LORazepam 2 MG/ML SDV VIAL ONE ×2 (11:50→12:25)
[2020-11-22 12:14] LABS: CHLORIDE 108 mmol/L (98-107); POTASSIUM 4.2 mmol/L (3.5-5.1); SODIUM 140 mmol/L (136-145)
[2020-11-22 12:17] LABS: ANION GAP 6 MMOL/L (8-16); CALCIUM 9.4 mg/dL (8.5-10.1); CO2 26 mmol/L (21-32)
[2020-11-22 12:18] LABS: ALBUMIN 3.8 g/dl (3.4-5.0); BLOOD UREA NITROGEN 12.1 mg/dL (7-18); GLUCOSE,RANDOM 73 mg/dL (74-106); LIPASE 107 U/L (73-393); MAGNESIUM 2.1 mg/dL (1.8-2.4)
[2020-11-22 12:20] LABS: SGPT/ALT 18 U/L (13-61)
[2020-11-22 12:21] LABS: CREATININE 0.8 mg/dL (0.55-1.3); SGOT/AST 15 U/L (15-37)
[2020-11-22 12:21] LABS: EPI CELLS 8 /uL (0-25.1); HYALINE CASTS 1 /uL (0-3.1); PH,URINE 8.5 (5.0-8.0); URINE APPEARANCE CLEAR; URINE BACTERIA 145 /uL (0-1359); URINE BILIRUBIN NEGATIVE (NEGATIVE); URINE COLOR YELLOW; URINE GLUCOSE (UA) NEGATIVE (NEGATIVE); URINE KETONE NEGATIVE (NEGATIVE); URINE LEUK ESTERASE 1+ (NEGATIVE); URINE NITRITE NEGATIVE (NEGATIVE); URINE PROTEIN TRACE (NEGATIVE); URINE RBC 147 /uL (0-23.9); URINE UROBILINOGEN 0.2 mg/dL (0.2-1.0); URINE WBC 265 /uL (0-25.8)
[2020-11-22 12:22] LABS: BILIRUBIN,TOTAL 0.8 mg/dL (0.2-1); TOT PROT 8.3 g/dl (6.4-8.2)
[2020-11-22 12:23] LABS: ALK PHOS 69 U/L (45-117)
[2020-11-22] MEDS ORDERED: CEFTRIAXONE 1 GM in DEXTROSE 5%-WATER - 100 ML IVPB ONE (12:27)
[2020-11-22] MEDS ORDERED: cefTRIAXone SODIUM 1 GM VIAL ONE (12:53)
[2020-11-22 13:29] LABS: URINE BENZODIAZEPINES NEGATIVE ng/ml (CUTOFF=200)
[2020-11-22 13:30] LABS: COCAINE, UR NEGATIVE ng/ml (CUTOFF=300); METHADONE, UR NEGATIVE ng/ml (CUTOFF=300); OPIATES, URI NEGATIVE ng/ml (CUTOFF=300); PHENCYCLIDINE,URINE NEGATIVE ng/ml (CUTOFF=25); URINE AMPHETAMINES NEGATIVE ng/ml (CUTOFF=500); URINE BARBITURATES NEGATIVE ng/ml (CUTOFF=200)
[2020-11-22] MEDS ORDERED: SUMAtriptan SUCCINATE 50 MG TABLET PO PRN (15:31)
[2020-11-22] MEDS ORDERED: ACETAMINOPHEN 325 MG TABLET (FP) PO PRN (15:33)
[2020-11-22] MEDS: SODIUM CHLORIDE 1,000 ML IV SCH (15:59)
[2020-11-22] MEDS: levETIRAcetam 500 MG TABLET (FP) PO SCH (21:07)
[2020-11-22] MEDS: levETIRAcetam 250 MG TABLET PO SCH (21:07)
[2020-11-22] MEDS: LORazepam 2 MG/ML SDV VIAL IVPUSH ONE (21:43)
[2020-11-22] MEDS ORDERED: levETIRAcetam 500 MG/5 ML INJECTION VIAL IVPB PRN (21:45)
[2020-11-22] MEDS ORDERED: PRAMIPEXOLE DIHYDROCHLORIDE 0.25 MG TABLET PO SCH (22:00)
[2020-11-22] MEDS ORDERED: DIVALPROEX SODIUM 500 MG TABLET E.C. PO SCH (22:00)
[2020-11-22] MEDS ORDERED: levETIRAcetam 500 MG/5 ML INJECTION VIAL IVPB SCH (22:00)
[2020-11-22] MEDS: LORazepam 2 MG/ML SDV VIAL IVPUSH PRN (22:32)
[2020-11-22 23:59] VITALS: BMI 21.7
[2020-11-23] MEDS ORDERED: ACETAMINOPHEN 1000 MG/100 ML VIAL (NON FORMULARY) IVPB ONE (01:29)
[2020-11-23] MEDS ORDERED: MELATONIN 5 MG TABLETS PO SCH (01:30)
[2020-11-23] MEDS: SODIUM CHLORIDE 1,000 ML IV SCH (01:41)
[2020-11-23 08:12] LABS: BLOOD UREA NITROGEN 9.2 mg/dL (7-18); CALCIUM 8.3 mg/dL (8.5-10.1)
[2020-11-23 08:15] LABS: BILIRUBIN,TOTAL 0.5 mg/dL (0.2-1); CREATININE 0.7 mg/dL (0.55-1.3); TOT PROT 6.4 g/dl (6.4-8.2)
[2020-11-23 08:16] LABS: PHOSPHOROUS 3.7 mg/dL (2.5-4.9)
[2020-11-23 08:25] LABS: BASO % 0.6 % (0-2.0); EOS % 0.6 % (0-4.5); HEMATOCRIT 34.9 % (32.4-45.2); LYMPH % 36.1 % (8-40); MCHC 34.2 g/dl (32.0-36.0); MEAN CELL VOLUME 87.6 fl (80-96); MEAN PLT VOLUME 8.1 fl (7.5-11.1); MONO % 7.8 % (3.8-10.2); NEUT % 54.9 % (42.8-82.8); PLATELET COUNT 312 K/MM3 (134-434); RBC 3.98 M/mm3 (3.60-5.2); RDW 14.4 % (11.6-15.6); WHITE BLOOD COUNT 6.1 K/mm3 (4.0-10.0)
[2020-11-23] MEDS: LORazepam 2 MG/ML SDV VIAL IVPUSH PRN ×2 (08:55→11:56)
[2020-11-23] MEDS ORDERED: levETIRAcetam 500 MG/5 ML INJECTION VIAL IVPB ONE ×2 (08:56→09:00)
[2020-11-23] MEDS ORDERED: LORazepam 2 MG/ML SDV VIAL IVPUSH ONE ×2 (09:00)
[2020-11-23] MEDS ORDERED: LORazepam 1 MG TABLET PO ONE (12:09)
[2020-11-23] MEDS ORDERED: MAGNESIUM SULF 50% (8.12 MEQ/2 ML-1 GM VIAL) IVPB ONE (12:30)
[2020-11-23] MEDS: levETIRAcetam 500 MG TABLET (FP) PO SCH (14:46)
[2020-11-23] MEDS: levETIRAcetam 250 MG TABLET PO SCH (14:46)
[2020-11-23 17:18] VITALS: BP 106/63; PULSE 82
[2020-11-23 18:52] VITALS: TEMP 97.4
== END 2020-11-23 16:40 | disposition left against medical advice (07) | DRG 53 ==
LOC: JER 10:54 → JERBED 16:20 → J5S 19:08 → J7W 11-23 00:27
PROVIDERS: ADMIT Internal Medicine; ATTEND Internal Medicine
DX: G40.209 Localization-related (focal) (partial) symptomatic epilepsy and epileptic syndromes with complex partial seizures, not intractable, without status epilepticus (principal); G43.909 Migraine, unspecified, not intractable, without status migrainosus; R53.83 Other fatigue; G25.81 Restless legs syndrome; F12.10 Cannabis abuse, uncomplicated
CPT/HCPCS: 36415; 70450-TC; 76830-TC; 80053; 80177; 80307; 81003; 82962; 83690; 83735; 84100; 84702; 85025; 86850; 86900; 86901; 87086; 93005; 93010; 99285-25; C9803; J0131; U0003

== ENCOUNTER 2021-03-06 21:05 | Observation (INO) | payer OTHER ==
[2021-03-06 21:41] VITALS: BMI 28.3
[2021-03-07 00:49] LABS: BASO % 0.4 % (0-2.0); EOS % 0.7 % (0-4.5); HEMATOCRIT 35.1 % (32.4-45.2); LYMPH % 45.1 % (8-40); MCH 30.8 pg (25.7-33.7); MCHC 34.2 g/dl (32.0-36.0); MEAN CELL VOLUME 90.2 fl (80-96); MEAN PLT VOLUME 8.2 fl (7.5-11.1); MONO % 9.7 % (3.8-10.2); NEUT % 44.1 % (42.8-82.8); PLATELET COUNT 284 K/MM3 (134-434); RBC 3.89 M/mm3 (3.60-5.2); RDW 15.1 % (11.6-15.6); WHITE BLOOD COUNT 6.5 K/mm3 (4.0-10.0)
[2021-03-07 01:09] LABS: CHLORIDE 110 mmol/L (98-107); SODIUM 141 mmol/L (136-145)
[2021-03-07 01:10] LABS: ALBUMIN 3.4 g/dl (3.4-5.0); CALCIUM 8.9 mg/dL (8.5-10.1)
[2021-03-07 01:11] LABS: ANION GAP 5 MMOL/L (8-16); BLOOD UREA NITROGEN 14.3 mg/dL (7-18); CO2 26 mmol/L (21-32); GLUCOSE,RANDOM 85 mg/dL (74-106)
[2021-03-07 01:14] LABS: CREATININE 0.7 mg/dL (0.55-1.3); SGOT/AST 14 U/L (15-37); SGPT/ALT 10 U/L (13-61)
[2021-03-07 01:16] LABS: TOT PROT 6.9 g/dl (6.4-8.2)
[2021-03-07 01:17] LABS: ALK PHOS 54 U/L (45-117)
[2021-03-07 01:25] LABS: BILIRUBIN,TOTAL 0.3 mg/dL (0.2-1)
[2021-03-07] MEDS ORDERED: levETIRAcetam 500 MG TABLET (FP) PO SCH ×2 (03:29→10:00)
[2021-03-07] MEDS ORDERED: levETIRAcetam 500 MG/5 ML INJECTION VIAL IVPB SCH (04:00)
[2021-03-07] MEDS ORDERED: levETIRAcetam 500 MG/5 ML INJECTION VIAL IVPB ONE (04:02)
[2021-03-07 06:12] LABS: HEMATOCRIT 34.6 % (32.4-45.2); HEMOGLOBIN 11.8 GM/dL (10.7-15.3); MCH 30.6 pg (25.7-33.7); MCHC 34.1 g/dl (32.0-36.0); MEAN CELL VOLUME 89.8 fl (80-96); PLATELET COUNT 283 K/MM3 (134-434); RBC 3.86 M/mm3 (3.60-5.2); RDW 15.3 % (11.6-15.6); WHITE BLOOD COUNT 5.7 K/mm3 (4.0-10.0)
[2021-03-07 06:40] LABS: BLOOD UREA NITROGEN 13.8 mg/dL (7-18); CALCIUM 8.5 mg/dL (8.5-10.1)
[2021-03-07 06:43] LABS: CREATININE 0.6 mg/dL (0.55-1.3)
[2021-03-07] MEDS ORDERED: LORazepam 2 MG/ML SDV VIAL ONE (09:10)
[2021-03-07] MEDS ORDERED: LORazepam 2 MG/ML SDV VIAL IVPUSH ONE (09:10)
[2021-03-07] MEDS ORDERED: ENOXAPARIN NA (PORCINE) 40 MG/0.4 ML DISP.SYRIN SQ ONE (09:50)
[2021-03-07] MEDS: ENOXAPARIN NA (PORCINE) 40 MG/0.4 ML DISP.SYRIN SQ SCH (10:05)
[2021-03-07 10:28] LABS: PH,URINE 5.5 (5.0-8.0); URINE APPEARANCE CLEAR; URINE BILIRUBIN NEGATIVE (NEGATIVE); URINE COLOR YELLOW; URINE GLUCOSE (UA) NEGATIVE (NEGATIVE); URINE KETONE TRACE (NEGATIVE); URINE LEUK ESTERASE NEGATIVE (NEGATIVE); URINE NITRITE NEGATIVE (NEGATIVE); URINE PROTEIN NEGATIVE (NEGATIVE); URINE UROBILINOGEN 0.2 mg/dL (0.2-1.0)
[2021-03-07] MEDS ORDERED: ACETAMINOPHEN 1000 MG/100 ML VIAL (NON FORMULARY) IVPB ONE (11:45)
[2021-03-07] MEDS ORDERED: ACETAMINOPHEN INJECTION 100 ML IVPB ONE (11:54)
[2021-03-07] MEDS: PRAMIPEXOLE DIHYDROCHLORIDE 0.25 MG TABLET PO SCH ×2 (12:28→22:02)
[2021-03-07] MEDS ORDERED: ACETAMINOPHEN 500 MG TABLET (FP) PO ONE (16:05)
[2021-03-07] MEDS ORDERED: SUMATRIPTAN SUCCINATE 6 MG/0.5 ML VIAL SQ ONE (20:58)
[2021-03-07] MEDS ORDERED: VALPROATE SODIUM 500 MG/5 ML VIAL IVPB ONE (20:58)
[2021-03-07] MEDS: DIVALPROEX SODIUM 500 MG TABLET E.C. PO SCH (21:57)
[2021-03-07] MEDS ORDERED: levETIRAcetam 250 MG TABLET PO SCH (22:00)
[2021-03-07] MEDS: levETIRAcetam 500 MG TABLET (FP) PO SCH (22:03)
[2021-03-08] MEDS: ENOXAPARIN NA (PORCINE) 40 MG/0.4 ML DISP.SYRIN SQ SCH (09:03)
[2021-03-08] MEDS: PRAMIPEXOLE DIHYDROCHLORIDE 0.25 MG TABLET PO SCH (09:03)
[2021-03-08] MEDS: levETIRAcetam 500 MG TABLET (FP) PO SCH (09:03)
[2021-03-08] MEDS ORDERED: PT OWN MED DRAWER 7, Y5N ONE (09:51)
[2021-03-08] MEDS: DIVALPROEX SODIUM 500 MG TABLET E.C. PO SCH (09:52)
[2021-03-08 11:20] VITALS: BP 117/68; PULSE 73; TEMP 98.5
== END 2021-03-08 11:42 | disposition home or self-care (01) ==
LOC: JER 21:05 → INTOOBSV 03-07 01:59 → UNDOADMOB 03-07 01:59 → JERBED 03-07 01:59 → J4W 03-07 15:29
PROVIDERS: ADMIT Internal Medicine
PROC: 3E023GC Introduction of Other Therapeutic Substance into Muscle, Percutaneous Approach (ICD-10-PCS; principal; 2021-03-07)
PROC: 3E033NZ Introduction of Analgesics, Hypnotics, Sedatives into Peripheral Vein, Percutaneous Approach (ICD-10-PCS; 2021-03-07)
PROC: 3E033GC Introduction of Other Therapeutic Substance into Peripheral Vein, Percutaneous Approach (ICD-10-PCS; 2021-03-07)
DX: G40.89 Other seizures (principal); F41.8 Other specified anxiety disorders; M54.9 Dorsalgia, unspecified; R42 Dizziness and giddiness; F19.20 Other psychoactive substance dependence, uncomplicated; F17.210 Nicotine dependence, cigarettes, uncomplicated; G25.81 Restless legs syndrome; G43.909 Migraine, unspecified, not intractable, without status migrainosus; R21 Rash and other nonspecific skin eruption; R11.2 Nausea with vomiting, unspecified; Z29.9 Encounter for prophylactic measures, unspecified
CPT/HCPCS: 36415; 70450-TC; 71045-TC-FY; 80048; 80053; 80061; 80164; 80177; 80307; 81003; 82306; 82607; 82728; 82962; 83036; 83540; 83550; 83721; 84146; 84443; 84703; 85025; 85027; 93005; 93010; 96372; 96374; 96375; 99285-25; C9803; G0378; J0131; U0003; U0005

== ENCOUNTER 2021-06-07 21:03 | Emergency (ER) | payer OTHER ==
[2021-06-07] MEDS ORDERED: LORazepam 2 MG/ML SDV VIAL ONE ×2 (21:12→21:31)
[2021-06-07] MEDS ORDERED: SODIUM CHLORIDE 0.9% 500 ML INFUS.BAG IV ONE ×2 (21:18→21:19)
[2021-06-07] MEDS ORDERED: LORazepam 2 MG/ML SDV VIAL IVPUSH ONE ×3 (21:22→22:06)
[2021-06-07] MEDS ORDERED: LORazepam 1 MG TABLET PO ONE (21:33)
[2021-06-07 21:43] VITALS: BMI 20.1
[2021-06-07] MEDS ORDERED: levETIRAcetam 500 MG/5 ML INJECTION VIAL IVPB ONE ×2 (22:08→22:30)
[2021-06-07 22:13] LABS: BASO % 0.3 % (0-2.0); EOS % 0.1 % (0-4.5); HEMOGLOBIN 12.8 GM/dL (10.7-15.3); LYMPH % 19.6 % (8-40); MCH 29.8 pg (25.7-33.7); MCHC 33.8 g/dl (32.0-36.0); MEAN CELL VOLUME 88.2 fl (80-96); MEAN PLT VOLUME 8.1 fl (7.5-11.1); MONO % 5.9 % (3.8-10.2); NEUT % 74.1 % (42.8-82.8); PLATELET COUNT 340 10^3/uL (134-434); RBC 4.31 M/mm3 (3.60-5.2); RDW 13.6 % (11.6-15.6); WHITE BLOOD COUNT 12.1 K/mm3 (4.0-10.0)
[2021-06-07] MEDS ORDERED: PROCHLORPERAZINE INJECTION 10 MG/2 ML VIAL IVPB ONE (22:14)
[2021-06-07] MEDS ORDERED: ACETAMINOPHEN 1000 MG/100 ML VIAL (NON FORMULARY) IVPB ONE (22:15)
[2021-06-07 22:28] LABS: BLOOD UREA NITROGEN 12.9 mg/dL (7-18)
[2021-06-07] MEDS ORDERED: ACETAMINOPHEN INJECTION 100 ML IVPB ONE (22:30)
[2021-06-07 22:31] LABS: CREATININE 1.1 mg/dL (0.55-1.3)
[2021-06-07 22:32] LABS: BILIRUBIN,TOTAL 0.2 mg/dL (0.2-1); TOT PROT 7.9 g/dl (6.4-8.2)
[2021-06-07] MEDS ORDERED: PROCHLORPERAZINE INJECTION 10 MG/2 ML VIAL ONE (22:43)
[2021-06-08] MEDS ORDERED: VALPROATE SODIUM 500 MG/5 ML VIAL IVPB ONE (01:33)
[2021-06-08 01:38] LABS: URINE APPEARANCE CLEAR; URINE BILIRUBIN NEGATIVE (NEGATIVE); URINE COLOR YELLOW; URINE GLUCOSE (UA) NEGATIVE (NEGATIVE); URINE KETONE NEGATIVE (NEGATIVE); URINE LEUK ESTERASE NEGATIVE (NEGATIVE); URINE NITRITE NEGATIVE (NEGATIVE); URINE PROTEIN NEGATIVE (NEGATIVE); URINE UROBILINOGEN 0.2 mg/dL (0.2-1.0)
[2021-06-08] MEDS ORDERED: VALPROATE SODIUM 500 MG/5 ML VIAL ONE (01:40)
[2021-06-08 02:04] VITALS: TEMP 98.2
[2021-06-08 02:47] VITALS: BP 97/55; PULSE 84
== END 2021-06-08 02:51 | disposition home or self-care (01) ==
LOC: JER 21:03
PROC: 3E0333Z Introduction of Anti-inflammatory into Peripheral Vein, Percutaneous Approach (ICD-10-PCS; principal; 2021-06-07)
PROC: 3E033GC Introduction of Other Therapeutic Substance into Peripheral Vein, Percutaneous Approach (ICD-10-PCS; 2021-06-07)
PROC: 3E033NZ Introduction of Analgesics, Hypnotics, Sedatives into Peripheral Vein, Percutaneous Approach (ICD-10-PCS; 2021-06-07)
PROC: 3E033NZ Introduction of Analgesics, Hypnotics, Sedatives into Peripheral Vein, Percutaneous Approach (ICD-10-PCS; 2021-06-07)
PROC: 3E033NZ Introduction of Analgesics, Hypnotics, Sedatives into Peripheral Vein, Percutaneous Approach (ICD-10-PCS; 2021-06-07)
PROC: 3E033GC Introduction of Other Therapeutic Substance into Peripheral Vein, Percutaneous Approach (ICD-10-PCS; 2021-06-07)
PROC: 3E033GC Introduction of Other Therapeutic Substance into Peripheral Vein, Percutaneous Approach (ICD-10-PCS; 2021-06-07)
DX: G40.89 Other seizures (principal); R10.2 Pelvic and perineal pain
CPT/HCPCS: 36415; 70450-TC; 76830-TC; 80053; 80164; 80177; 81003; 84703; 85025; 87086; 93005; 93010; 96374; 96375; 96376; 99285-25; J0131